=== PATIENT | male | born 1935 | race Caucasian/White ===

== ENCOUNTER 2018-10-07 16:43 | Inpatient (IN) | payer MEDICARE, OTHER, BC ==
[2018-10-07] MEDS ORDERED: Milk Of Magnesia 30 ML UDCUP PO PRN (19:21)
[2018-10-07] MEDS ORDERED: Ondansetron ODT 4 MG TAB PO PRN (19:22)
[2018-10-07] MEDS ORDERED: Polyethylene Glycol 3350 17 GM Packet PO PRN (19:23)
[2018-10-07] MEDS: Cefepime 1 GM in Sodium Chloride 0.9% 100 ML IVPB SCH (21:11)
[2018-10-07] MEDS: levETIRAcetam 500 MG TAB PO SCH (21:12)
[2018-10-07] MEDS: Pregabalin 75 MG CAP PO SCH (21:13)
[2018-10-07] MEDS: Apixaban 2.5 MG TAB PO SCH (21:14)
[2018-10-07] MEDS: Lisinopril 10 MG TAB PO SCH (21:15)
[2018-10-08] MEDS: Vancomycin HCl 1 GM in Sodium Chloride 0.9% 250 ML 250 ML IVPB SCH ×2 (01:45→13:33)
[2018-10-08 05:37] LABS: #Basophils 0.1 thou/uL (0.0-0.2); #Eosinphils 0.2 thou/uL (0.0-0.7); #Lymphocytes 0.8 thou/uL (1.20-3.40); #Monocytes 0.5 thou/uL (0.11-0.59); #Neutrophils 3.3 thou/uL (1.40-6.50); %Basophils 1.6 % (0.0-1.0); %Eosinophils 4.1 % (0.0-10.0); %Lymphocytes 16.1 % (21.0-51.0); %Monocytes 10.1 % (0.0-10.0); %Neutrophils 68.2 % (42.0-75.0); Hemoglobin 8.4 g/dL (14.0-18.0); Mean Corpuscular HGB CONC 32.8 g/dL (32.0-36.0); Mean Corpuscular Hemoglobin 29.3 pg (27.0-31.0); Mean Corpuscular Volume 89.3 fL (78.0-98.0); Platelet Count 157 thou/uL (130-400); RBC Distribution Width 13.4 % (11.5-14.5); Red Blood Cell (RBC) Count 2.88 mill/uL (4.70-6.10); White Blood Cell (WBC) Count 4.9 thou/uL (4.8-10.8)
[2018-10-08 05:51] LABS: ALT (SGPT) 19 U/L (8-55); AST (SGOT) 21 U/L (5-34); Albumin 2.7 g/dL (3.4-4.8); Alkaline Phosphatase 62 U/L (40-150); Anion Gap 12 mmol/L (10-20); BUN (Urea Nitrogen) 11 mg/dL (8.4-25.7); Bilirubin, Total 0.9 mg/dL (0.2-1.2); Calc. Creatinine Clearance 90 mL/min (70-130); Calcium 8.5 mg/dL (7.8-10.44); Carbon Dioxide 29 mmol/L (23-31); Chloride 100 mmol/L (98-107); Estimated GFR-MDRD Greater than 90; Glucose 106 mg/dL (83-110); Potassium 4.1 mmol/L (3.5-5.1); Protein, Total 4.7 g/dL (5.8-8.1); Sodium 137 mmol/L (136-145)
[2018-10-08] MEDS: Ferrous Sulfate 325 MG TAB PO SCH ×2 (08:55→17:33)
[2018-10-08] MEDS: levETIRAcetam 500 MG TAB PO SCH ×2 (09:30→20:54)
[2018-10-08] MEDS: Famotidine 20 MG TAB PO SCH (09:30)
[2018-10-08] MEDS: Cefepime 1 GM in Sodium Chloride 0.9% 100 ML IVPB SCH ×2 (09:31→20:53)
[2018-10-08] MEDS: Apixaban 2.5 MG TAB PO SCH ×2 (09:33→20:55)
[2018-10-08] MEDS: Aspirin 81 mg Enteric Coated Tablet PO SCH (09:33)
[2018-10-08] MEDS: Multivitamin W/ Minerals 1 TAB PO SCH (09:34)
[2018-10-08] MEDS: Pregabalin 75 MG CAP PO SCH ×2 (09:34→20:55)
[2018-10-08] MEDS ORDERED: Lisinopril 10 MG TAB ONE (10:16)
[2018-10-08] MEDS: Lisinopril 10 MG TAB PO SCH ×2 (10:21→20:57)
[2018-10-08] MEDS ORDERED: Sodium Chloride 0.9% 20 ML ONE ×2 (11:02→15:18)
[2018-10-08] MEDS: HYDROcodone/Acetaminophen 5/325 mg Tablet PO PRN ×2 (13:43→20:53)
[2018-10-08] MEDS ORDERED: Sodium Chloride 0.9% 10 ML ONE (20:50)
[2018-10-09] MEDS: Vancomycin HCl 1 GM in Sodium Chloride 0.9% 250 ML 250 ML IVPB SCH ×2 (01:29→12:41)
[2018-10-09] MEDS: Cefepime 1 GM in Sodium Chloride 0.9% 100 ML IVPB SCH ×2 (08:26→20:50)
[2018-10-09] MEDS: Ferrous Sulfate 325 MG TAB PO SCH ×2 (08:27→17:39)
[2018-10-09] MEDS: Pregabalin 75 MG CAP PO SCH ×2 (08:27→20:49)
[2018-10-09] MEDS: levETIRAcetam 500 MG TAB PO SCH ×2 (08:28→20:49)
[2018-10-09] MEDS: Lisinopril 10 MG TAB PO SCH ×2 (08:28→20:49)
[2018-10-09] MEDS: Multivitamin W/ Minerals 1 TAB PO SCH (08:28)
[2018-10-09] MEDS: Aspirin 81 mg Enteric Coated Tablet PO SCH (08:29)
[2018-10-09] MEDS: Apixaban 2.5 MG TAB PO SCH ×2 (08:29→20:50)
[2018-10-09] MEDS: Famotidine 20 MG TAB PO SCH (08:29)
--- NOTE | 2018-10-09 12:02 | PRG ---
DATE OF SERVICE: 10/09/2018 SUBJECTIVE: Mr. Salazar is resting comfortably in bed. Denies any concerns. No family at bedside. Discussed with nursing. OBJECTIVE: VITAL SIGNS: He is afebrile. Heart rate is 72, respirations 20, oxygen saturation 96% on room air, blood pressure 156/63. CARDIOVASCULAR: S1 and S2 plus. RESPIRATORY: Normal vesicular breath sounds. ABDOMEN: Soft and nontender. Bowel sounds heard in all quadrants. EXTREMITIES: Without cyanosis or clubbing. Hip incision is healthy. CENTRAL NERVOUS SYSTEM: Awake and responsive. Generalized weakness. IMPRESSION: 1. Septic arthritis of the right hip requiring removal of hardware and now continued antibiotics. 2. Hypertension. 3. Coronary artery disease. 4. History of atrial fibrillation. 5. Postherpetic neuralgia. 6. Deconditioning. 7. Dyslipidemia. PLAN: 1. Continue current medications including antibiotics. 2. Nutritional support with heart healthy diet. 3. Orthopedic precautions. 4. Incision care. 5. DVT and stress ulcer prophylaxis. 6. Decubitus precaution. 7. PT/OT. 8. We will review old records for duration of antibiotics. Job ID: [id number]
[2018-10-09 12:30] LABS: Vancomycin, Trough 14.2 ug/mL
--- NOTE | 2018-10-09 12:34 | HP ---
Date of Examination: 10/08/18 CHIEF COMPLAINTS: Recurrent septic arthritis, requiring complete removal of right total hip hardware with replacement of new hardware for long-term antibiotics and therapy. BRIEF HISTORY: This is a pleasant 82-year-old male, who was initially at inpatient rehab hospital for herpes zoster ophthalmicus and significant deconditioning. He did develop an episode of aspiration pneumonia and so was admitted to the acute hospital and transferred back to inpatient rehab. He was doing well and was anticipated to be discharged when he fell and sustained a right hip fracture. He had to be transferred back to the acute hospital and underwent surgical fixation. He came back to the inpatient rehab, where unfortunately he started developing some fever and chills and was noted to have some redness and pain in the right hip incision site with blood cultures growing MRSA. He underwent a washout and was treated with long-term IV antibiotics. He eventually was transferred to [facility] in [place] and where he had recurrence of the hip infection and so Orthopedics evaluated him and apparently took him to the OR and removed the hardware and placed new hardware with washout and he is back on IV antibiotics. He has been transferred here for continuation of the IV antibiotics, wound care, physical therapy. The patient is resting comfortably in bed and denies any complaints. He denies any fever or chills. He is tolerating his antibiotics. No family at bedside. PAST MEDICAL HISTORY: 1. Hypertension. 2. Atrial fibrillation. 3. Coronary artery disease. 4. Postherpetic neuralgia. 5. History of CVA with right hemiparesis, improving. 6. Status post fall and right hip fracture, requiring hemiarthroplasty with subsequent infection requiring initial washout then and now replacement of hardware. PAST SURGICAL HISTORY: 1. Coronary artery bypass grafting. 2. Radiofrequency ablation for atrial fibrillation. ALLERGIES: TO IODINE AND SHELLFISH. FAMILY HISTORY: Noncontributory to current admission. PSYCHOSOCIAL HISTORY: No documented tobacco or recreational drug abuse. Social alcohol intake. REVIEW OF SYSTEMS: CARDIOVASCULAR SYSTEM: Denies any chest pain, shortness of breath, palpitations, PND, orthopnea, or pedal edema. RESPIRATORY SYSTEM: Denies any chronic cough, expectoration, or pleuritic-type chest pain. GASTROINTESTINAL SYSTEM: Denies any nausea, vomiting, diarrhea, constipation, hematemesis, melena, or hematochezia. GENITOURINARY SYSTEM: Denies any frequency, urgency, dysuria, or hematuria. CENTRAL NERVOUS SYSTEM: Generalized weakness. Postherpetic neuralgia pain is controlled. SHEENT: Denies any difficulty with speech, vision, hearing, or swallowing. SKIN: Denies any rash. PHYSICAL EXAMINATION: GENERAL: Pleasant 82-year-old male, who is resting comfortably in bed and denies any concerns. No family at bedside. VITAL SIGNS: He is afebrile. Heart rate is 56, respirations 16, oxygen saturation 97% on room air, and blood pressure 140/63. HEENT: Normocephalic and atraumatic. Pupils are equally reactive to light and accommodation. No JVD, thyromegaly, cervical lymphadenopathy, or throat exudates. No carotid bruits. CARDIOVASCULAR SYSTEM: S1 and S2 plus. Rate and rhythm are regular. RESPIRATORY SYSTEM: Normal vesicular breath sounds heard in all lung morejon. ABDOMEN: Soft and nontender. Bowel sounds heard in all quadrants. EXTREMITIES: Without cyanosis, clubbing. Trace edema, right leg. Right hip incision with dressing. CENTRAL NERVOUS SYSTEM: Awake and responsive. Cranial nerves 2 through 12 intact. Residual weakness from his CVA. LABORATORY DATA: White count is 4.9, H and H is 8.4 and 25.7. Sodium 137, potassium 4.1, and BUN and creatinine are 11 and 0.6. AST and ALT are normal. IMPRESSION: 1. Methicillin-resistant Staphylococcus aureus infection of his right hip, requiring removal of hardware and replacement and new hardware, now on continued IV antibiotics. 2. Coronary artery disease. 3. History of atrial fibrillation. 4. Postherpetic neuralgia. 5. Dyslipidemia. 6. Possible seizure disorder. 7. History of aspiration pneumonia. 8. Hypertension. 9. Deconditioning. PLAN: 1. Continue current medications. 2. Nutritional support. 3. Physical therapy. 4. Incision care. 5. Orthopedic precautions. 6. Routine laboratory values. 7. DVT and stress ulcer prophylaxis. 8. Decubitus precautions. 9. PT/OT eval and treat. 10. Discussed with the patient in detail. All questions answered. No family at bedside. Job ID: [id number] [facility]
[2018-10-09] MEDS: HYDROcodone/Acetaminophen 5/325 mg Tablet PO PRN ×2 (12:52→20:47)
[2018-10-10] MEDS: Vancomycin HCl 1 GM in Sodium Chloride 0.9% 250 ML 250 ML IVPB SCH ×2 (01:37→13:30)
[2018-10-10] MEDS: Famotidine 20 MG TAB PO SCH (08:45)
[2018-10-10] MEDS: Cefepime 1 GM in Sodium Chloride 0.9% 100 ML IVPB SCH (08:45)
[2018-10-10] MEDS: Multivitamin W/ Minerals 1 TAB PO SCH (08:46)
[2018-10-10] MEDS: Lisinopril 10 MG TAB PO SCH (08:46)
[2018-10-10] MEDS: Pregabalin 75 MG CAP PO SCH (08:46)
[2018-10-10] MEDS: Ferrous Sulfate 325 MG TAB PO SCH ×2 (08:47→17:33)
[2018-10-10] MEDS: Aspirin 81 mg Enteric Coated Tablet PO SCH (08:47)
[2018-10-10] MEDS: levETIRAcetam 500 MG TAB PO SCH (08:47)
[2018-10-10] MEDS: Apixaban 2.5 MG TAB PO SCH (08:47)
[2018-10-10] MEDS ORDERED: Ondansetron ODT 4 MG TAB PO PRN (10:52)
--- NOTE | 2018-10-10 13:24 | PRG ---
DATE OF SERVICE: 10/10/2018 SUBJECTIVE: Mr. Salazar is awake and responsive. He denies any concerns. He remains slightly confused. He apparently did well with therapy this morning. He is tolerating his antibiotics. Spoke with pharmacy and asked them to manage his vancomycin dosing. OBJECTIVE: VITAL SIGNS: He is afebrile, heart rate 73, respirations 18, oxygen saturation 96% on room air, and blood pressure 161/75. CARDIOVASCULAR SYSTEM: S1 and S2 plus. RESPIRATORY SYSTEM: Clear breath sounds. ABDOMEN: Soft and nontender. Bowel sounds heard in all quadrants. EXTREMITIES: Without cyanosis or clubbing. Peripheral pulses are palpable. Hip incision with dressing. IMPRESSION: 1. Septic arthritis, right hip, requiring removal of hardware and replacement. 2. Hypertension. 3. Atrial fibrillation. 4. Coronary artery disease. 5. Postherpetic neuralgia. 6. History of cerebrovascular accident with improving right hemiparesis. 7. Deconditioning. PLAN: 1. Continue nutritional support. 2. Heart healthy diet. 3. Continue antibiotics. 4. Weekly CBC, CRP, CMP, and sed rate. 5. Orthopedic precautions. 6. Pharmacy to manage vancomycin dosing. Spoke with pharmacy. 7. Continue PT/OT. 8. Discussed with the patient and nursing in detail. All questions answered. Job ID: [id number]
[2018-10-10] MEDS: Vancomycin HCl 500 MG in Sodium Chloride 0.9% 100 ML IVPB SCH (13:37)
[2018-10-10] MEDS: Vancomycin HCl 750 MG in Sodium Chloride 0.9% 250 ML 250 ML IVPB SCH (13:37)
[2018-10-10 14:29] LABS: Anion Gap 12 mmol/L (10-20); BUN (Urea Nitrogen) 15 mg/dL (8.4-25.7); Calc. Creatinine Clearance 85 mL/min (70-130); Calcium 8.3 mg/dL (7.8-10.44); Carbon Dioxide 29 mmol/L (23-31); Chloride 98 mmol/L (98-107); Estimated GFR-MDRD Greater than 90; Glucose 136 mg/dL (83-110); Potassium 3.4 mmol/L (3.5-5.1); Sodium 136 mmol/L (136-145)
[2018-10-10] MEDS: HYDROcodone/Acetaminophen 5/325 mg Tablet PO PRN (14:42)
[2018-10-10 14:54] LABS: #Basophils 0.1 thou/uL (0.0-0.2); #Eosinphils 0.2 thou/uL (0.0-0.7); #Lymphocytes 0.7 thou/uL (1.20-3.40); #Monocytes 0.5 thou/uL (0.11-0.59); #Neutrophils 4.2 thou/uL (1.40-6.50); %Basophils 1.2 % (0.0-1.0); %Eosinophils 4.4 % (0.0-10.0); %Lymphocytes 11.6 % (21.0-51.0); %Monocytes 8.6 % (0.0-10.0); %Neutrophils 74.1 % (42.0-75.0); Hemoglobin 9.2 g/dL (14.0-18.0); Mean Corpuscular HGB CONC 31.8 g/dL (32.0-36.0); Mean Corpuscular Hemoglobin 28.6 pg (27.0-31.0); Mean Corpuscular Volume 89.9 fL (78.0-98.0); Mean Platelet Volume 6.2 fL (7.4-10.4); Platelet Count 219 thou/uL (130-400); RBC Distribution Width 13.6 % (11.5-14.5); Red Blood Cell (RBC) Count 3.21 mill/uL (4.70-6.10); White Blood Cell (WBC) Count 5.6 thou/uL (4.8-10.8)
[2018-10-11] MEDS ORDERED: Pregabalin 75 MG CAP ONE (08:26)
[2018-10-11] MEDS ORDERED: Ferrous Sulfate 325 MG TAB ONE (08:26)
[2018-10-11] MEDS ORDERED: Apixaban 5 MG TAB ONE (08:26)
[2018-10-11] MEDS ORDERED: Famotidine 20 MG TAB ONE (08:26)
[2018-10-11] MEDS ORDERED: Cefepime 1 GM VIAL ONE ×2 (08:27→08:28)
[2018-10-11] MEDS ORDERED: Lisinopril 5 MG TAB ONE (08:27)
[2018-10-11] MEDS ORDERED: levETIRAcetam 500 MG TAB ONE (08:27)
[2018-10-11] MEDS ORDERED: Aspirin 81 mg Enteric Coated Tablet ONE (08:27)
[2018-10-11] MEDS ORDERED: Multivitamin W/ Minerals 1 TAB ONE (08:27)
[2018-10-11] MEDS: Cefepime 1 GM in Sodium Chloride 0.9% 100 ML IVPB SCH ×3 (08:41→21:06)
[2018-10-11] MEDS: levETIRAcetam 500 MG TAB PO SCH ×3 (08:41→21:06)
[2018-10-11] MEDS: Apixaban 2.5 MG TAB PO SCH ×3 (08:41→21:07)
[2018-10-11] MEDS: Pregabalin 75 MG CAP PO SCH ×3 (08:42→21:07)
[2018-10-11] MEDS: Vancomycin HCl 750 MG in Sodium Chloride 0.9% 250 ML 250 ML IVPB SCH ×2 (08:42→13:48)
[2018-10-11] MEDS: Lisinopril 10 MG TAB PO SCH ×3 (08:42→21:08)
[2018-10-11] MEDS: Vancomycin HCl 500 MG in Sodium Chloride 0.9% 100 ML IVPB SCH ×2 (08:43→13:57)
[2018-10-11] MEDS: Aspirin 81 mg Enteric Coated Tablet PO SCH (09:00)
[2018-10-11] MEDS: HYDROcodone/Acetaminophen 5/325 mg Tablet PO PRN (09:00)
[2018-10-11] MEDS: Sodium Chloride 0.9% 40 ML ONE ×2 (09:00→21:05)
[2018-10-11] MEDS: Ferrous Sulfate 325 MG TAB PO SCH ×3 (09:00→17:10)
[2018-10-11] MEDS: Famotidine 20 MG TAB PO SCH (09:27)
[2018-10-11] MEDS: Multivitamin W/ Minerals 1 TAB PO SCH (09:34)
[2018-10-11 13:05] LABS: Vancomycin, Trough 12.2 ug/mL
[2018-10-11] MEDS: Vancomycin HCl 1 GM in Sodium Chloride 0.9% 250 ML 250 ML IVPB SCH (13:56)
[2018-10-12] MEDS: Vancomycin HCl 500 MG in Sodium Chloride 0.9% 100 ML IVPB SCH ×2 (02:23→14:17)
[2018-10-12] MEDS: Vancomycin HCl 1 GM in Sodium Chloride 0.9% 250 ML 250 ML IVPB SCH ×2 (02:23→14:18)
[2018-10-12] MEDS: Apixaban 2.5 MG TAB PO SCH ×2 (09:14→20:33)
[2018-10-12] MEDS: Aspirin 81 mg Enteric Coated Tablet PO SCH (09:14)
[2018-10-12] MEDS: Ferrous Sulfate 325 MG TAB PO SCH ×2 (09:14→18:23)
[2018-10-12] MEDS: Cefepime 1 GM in Sodium Chloride 0.9% 100 ML IVPB SCH ×2 (09:14→20:30)
[2018-10-12] MEDS: Famotidine 20 MG TAB PO SCH (09:15)
[2018-10-12] MEDS: Lisinopril 10 MG TAB PO SCH ×2 (09:16→20:31)
[2018-10-12] MEDS: levETIRAcetam 500 MG TAB PO SCH ×2 (09:16→20:31)
[2018-10-12] MEDS: Pregabalin 75 MG CAP PO SCH ×2 (09:17→20:33)
[2018-10-12] MEDS: Multivitamin W/ Minerals 1 TAB PO SCH (09:18)
[2018-10-12] MEDS ORDERED: Sodium Chloride 0.9% 20 ML ONE ×2 (09:26→20:17)
--- NOTE | 2018-10-12 12:48 | PRG ---
DATE OF SERVICE: 10/12/2018 SUBJECTIVE: Mr. Salazar is doing the same. He is up in his chair, has not started on his lunch yet. Denies any concerns or questions. No family at bedside, discussed with nursing. OBJECTIVE: VITAL SIGNS: He is afebrile. Heart rate 72, respirations 20, oxygen saturation 98% on room air, and blood pressure 160/70. CARDIOVASCULAR SYSTEM: S1 and S2 plus. RESPIRATORY SYSTEM: Normal vesicular breath sounds. ABDOMEN: Soft and nontender. Bowel sounds heard in all quadrants. EXTREMITIES: Without cyanosis or clubbing. CENTRAL NERVOUS SYSTEM: Awake and responsive. Cranial nerves 2 through 12 intact. Generalized weakness. Does have some deficits from his prior intracranial injury. IMPRESSION: 1. Right hip septic arthritis status post removal of hardware and possible replacement, not sure if both hardware was replaced or he just has antibiotic spacers plus hardware. I do not have the operative report. 2. Hypertension. 3. Atrial fibrillation. 4. Coronary artery disease. 5. Postherpetic neuralgia. 6. History of cerebrovascular accident with right hemiparesis with improvement. PLAN: 1. Continue current medications including antibiotics. 2. Orthopedic precautions. 3. Incision care. 4. Weekly CBC, CRP, and sedimentation rate. 5. Nutritional support. 6. PT/OT. 7. Discussed with the patient in detail. All questions answered. 8. Dr. Norris on-call this weekend and Dr. Norris or Dr. May, covering me next week. Job ID: [id number]
[2018-10-12] MEDS: HYDROcodone/Acetaminophen 5/325 mg Tablet PO PRN (20:31)
[2018-10-13 01:22] LABS: Vancomycin, Trough 21.9 ug/mL
[2018-10-13] MEDS: Vancomycin HCl 500 MG in Sodium Chloride 0.9% 100 ML IVPB SCH ×2 (02:10→13:55)
[2018-10-13] MEDS: Vancomycin HCl 1 GM in Sodium Chloride 0.9% 250 ML 250 ML IVPB SCH ×2 (02:11→13:54)
[2018-10-13 05:07] LABS: #Basophils 0.1 thou/uL (0.0-0.2); #Eosinphils 0.2 thou/uL (0.0-0.7); #Lymphocytes 0.7 thou/uL (1.20-3.40); #Monocytes 0.6 thou/uL (0.11-0.59); #Neutrophils 3.5 thou/uL (1.40-6.50); %Basophils 1.3 % (0.0-1.0); %Eosinophils 4.6 % (0.0-10.0); %Lymphocytes 14.4 % (21.0-51.0); %Monocytes 10.9 % (0.0-10.0); %Neutrophils 68.9 % (42.0-75.0); Hemoglobin 8.7 g/dL (14.0-18.0); Mean Corpuscular HGB CONC 32.3 g/dL (32.0-36.0); Mean Corpuscular Hemoglobin 28.7 pg (27.0-31.0); Mean Corpuscular Volume 89.1 fL (78.0-98.0); Mean Platelet Volume 5.9 fL (7.4-10.4); Platelet Count 241 thou/uL (130-400); RBC Distribution Width 13.4 % (11.5-14.5); Red Blood Cell (RBC) Count 3.02 mill/uL (4.70-6.10); White Blood Cell (WBC) Count 5.1 thou/uL (4.8-10.8)
[2018-10-13 05:11] LABS: MDiff Complete? YES; Manual Diff?? NO
[2018-10-13 05:27] LABS: ALT (SGPT) 18 U/L (8-55); AST (SGOT) 15 U/L (5-34); Albumin 2.7 g/dL (3.4-4.8); Alkaline Phosphatase 63 U/L (40-150); Anion Gap 11 mmol/L (10-20); BUN (Urea Nitrogen) 18 mg/dL (8.4-25.7); Bilirubin, Total 0.5 mg/dL (0.2-1.2); Calc. Creatinine Clearance 80 mL/min (70-130); Calcium 8.3 mg/dL (7.8-10.44); Carbon Dioxide 29 mmol/L (23-31); Chloride 101 mmol/L (98-107); Estimated GFR-MDRD Greater than 90; Globulin 2.2 g/dL (2.4-3.5); Glucose 108 mg/dL (83-110); Potassium 3.7 mmol/L (3.5-5.1); Protein, Total 4.9 g/dL (5.8-8.1); Sodium 137 mmol/L (136-145)
[2018-10-13] MEDS: Ferrous Sulfate 325 MG TAB PO SCH ×2 (09:16→17:13)
[2018-10-13] MEDS: Pregabalin 75 MG CAP PO SCH ×2 (09:16→21:02)
[2018-10-13] MEDS: Famotidine 20 MG TAB PO SCH (09:17)
[2018-10-13] MEDS: Lisinopril 10 MG TAB PO SCH ×2 (09:17→21:02)
[2018-10-13] MEDS: Multivitamin W/ Minerals 1 TAB PO SCH (09:17)
[2018-10-13] MEDS: Aspirin 81 mg Enteric Coated Tablet PO SCH (09:17)
[2018-10-13] MEDS: levETIRAcetam 500 MG TAB PO SCH ×2 (09:17→21:02)
[2018-10-13] MEDS: Apixaban 2.5 MG TAB PO SCH ×2 (09:17→21:03)
[2018-10-13] MEDS: Cefepime 1 GM in Sodium Chloride 0.9% 100 ML IVPB SCH ×2 (09:18→21:01)
[2018-10-13] MEDS ORDERED: Sodium Chloride 0.9% 20 ML ONE (20:49)
[2018-10-13] MEDS: HYDROcodone/Acetaminophen 5/325 mg Tablet PO PRN (21:03)
--- NOTE | 2018-10-13 22:01 | PRG ---
DATE OF SERVICE: 10/13/[address] Micha Reed. SUBJECTIVE: The patient is lying in the bed, feels well with minimal pain in his right hip. He has a diagnosis of right hip septic arthritis, status post removal of the right hip and femur hardware on long-term antibiotics, who has been admitted to skilled rehab for strengthening and deconditioning. He has had history of hypertension, atrial fibrillation, coronary artery disease, and a distant CVA with mild right hemiparesis. He feels well, however, today with no complaints and feels he is getting better and is hopeful to be able to transfer without pain in the future. OBJECTIVE: VITAL SIGNS: Shows his blood pressure is 168/67, temperature is 98, pulse 71, respirations 20, and O2 sats 97% on room air. LUNGS: Clear. CARDIAC: Showed regular rhythm. ABDOMEN: Soft and nontender. SKIN/EXTREMITIES: Healing incision over the right leg. NEUROLOGICAL: Shows some mild right-sided weakness. ASSESSMENT: 1. Resolving right hip septic arthritis on cefepime 1 g IV q.12 hours. 2. Stable hypertension. 3. Stable atrial fibrillation with rate control and anticoagulation. 4. Stable seizure disorder, controlled on Keppra. PLAN: Continue PT/OT. Continue IV cefepime. Continue wound care. Continue rate control and anticoagulation of atrial fibrillation. Job ID: [id number]
[2018-10-14 01:08] LABS: Vancomycin, Trough 22.2 ug/mL
[2018-10-14] MEDS: Vancomycin HCl 500 MG in Sodium Chloride 0.9% 100 ML IVPB SCH ×2 (02:04→14:12)
[2018-10-14] MEDS: Vancomycin HCl 1 GM in Sodium Chloride 0.9% 250 ML 250 ML IVPB SCH ×2 (02:05→14:08)
[2018-10-14] MEDS ORDERED: Sodium Chloride 0.9% 10 ML ONE ×3 (08:23→09:57)
[2018-10-14] MEDS: Ferrous Sulfate 325 MG TAB PO SCH ×2 (08:59→17:34)
[2018-10-14] MEDS: Cefepime 1 GM in Sodium Chloride 0.9% 100 ML IVPB SCH ×2 (09:07→20:56)
[2018-10-14] MEDS: Famotidine 20 MG TAB PO SCH (09:12)
[2018-10-14] MEDS: Lisinopril 10 MG TAB PO SCH ×2 (09:14→20:59)
[2018-10-14] MEDS: Apixaban 2.5 MG TAB PO SCH ×2 (09:14→20:59)
[2018-10-14] MEDS: Aspirin 81 mg Enteric Coated Tablet PO SCH (09:14)
[2018-10-14] MEDS: Pregabalin 75 MG CAP PO SCH ×2 (09:16→20:57)
[2018-10-14] MEDS: levETIRAcetam 500 MG TAB PO SCH ×2 (09:17→20:57)
[2018-10-14] MEDS: Multivitamin W/ Minerals 1 TAB PO SCH (09:17)
[2018-10-14] MEDS ORDERED: Sodium Chloride 0.9% 20 ML ONE (14:04)
[2018-10-15] MEDS: Vancomycin HCl 1 GM in Sodium Chloride 0.9% 250 ML 250 ML IVPB SCH ×2 (02:05→14:55)
[2018-10-15] MEDS: Vancomycin HCl 500 MG in Sodium Chloride 0.9% 100 ML IVPB SCH ×2 (02:05→15:05)
[2018-10-15] MEDS: Ferrous Sulfate 325 MG TAB PO SCH ×2 (08:50→17:28)
[2018-10-15] MEDS: Pregabalin 75 MG CAP PO SCH ×2 (08:51→20:38)
[2018-10-15] MEDS: Apixaban 2.5 MG TAB PO SCH ×2 (08:51→20:39)
[2018-10-15] MEDS: Aspirin 81 mg Enteric Coated Tablet PO SCH (08:53)
[2018-10-15] MEDS: levETIRAcetam 500 MG TAB PO SCH ×2 (08:53→20:39)
[2018-10-15] MEDS: Multivitamin W/ Minerals 1 TAB PO SCH (08:56)
[2018-10-15] MEDS: Lisinopril 10 MG TAB PO SCH ×2 (08:57→20:39)
[2018-10-15] MEDS: Famotidine 20 MG TAB PO SCH (08:57)
[2018-10-15] MEDS: Cefepime 1 GM in Sodium Chloride 0.9% 100 ML IVPB SCH ×2 (09:00→20:38)
--- NOTE | 2018-10-15 09:39 | PRG ---
DATE OF SERVICE: 10/14/2018 SUBJECTIVE: The patient is awake, but appears to be somewhat confused and weak, although answers questions appropriately and maybe just fatigued, this is late at night. He is denying any pain, shortness of breath, or chest pain. Nurses have no complaints. OBJECTIVE: VITAL SIGNS: Show him to have a blood pressure of 137/62, temperature is 99.6, pulse 86, respirations 18, and O2 sats 94% on room air. LUNGS: Clear. CARDIAC: Examination showed regular rhythm. ABDOMEN: Soft and nontender. EXTREMITIES: Right leg shows healing incision over the right leg. ASSESSMENT: 1. Resolving right hip septic arthritis, on cefepime 1 g q.12. 2. Stable hypertension. 3. Stable atrial fibrillation, rate control with anticoagulation. 4. Stable seizure disorder. PLAN: Continue PT/OT. Continue wound care. Continue rate control and anticoagulation for atrial fibrillation. Continue IV cefepime. Job ID: [id number]
[2018-10-15] MEDS: HYDROcodone/Acetaminophen 5/325 mg Tablet PO PRN (11:45)
[2018-10-15] MEDS ORDERED: Sodium Chloride 0.9% 20 ML ONE (20:50)
[2018-10-16] MEDS: Vancomycin HCl 500 MG in Sodium Chloride 0.9% 100 ML IVPB SCH (02:20)
[2018-10-16] MEDS: Vancomycin HCl 1 GM in Sodium Chloride 0.9% 250 ML 250 ML IVPB SCH ×2 (02:21→19:35)
[2018-10-16] MEDS: Ferrous Sulfate 325 MG TAB PO SCH ×2 (08:59→17:26)
[2018-10-16] MEDS: Famotidine 20 MG TAB PO SCH (09:01)
[2018-10-16] MEDS: Apixaban 2.5 MG TAB PO SCH ×2 (09:01→21:04)
[2018-10-16] MEDS: Multivitamin W/ Minerals 1 TAB PO SCH (09:02)
[2018-10-16] MEDS: Aspirin 81 mg Enteric Coated Tablet PO SCH (09:03)
[2018-10-16] MEDS: levETIRAcetam 500 MG TAB PO SCH ×2 (09:03→21:04)
[2018-10-16] MEDS: Lisinopril 10 MG TAB PO SCH ×2 (09:03→21:04)
[2018-10-16] MEDS: Cefepime 1 GM in Sodium Chloride 0.9% 100 ML IVPB SCH ×2 (09:05→21:03)
[2018-10-16] MEDS: HYDROcodone/Acetaminophen 5/325 mg Tablet PO PRN ×2 (09:14→17:26)
[2018-10-16] MEDS: Pregabalin 75 MG CAP PO SCH ×2 (09:54→21:04)
[2018-10-16 13:44] LABS: Vancomycin, Trough 24.8 ug/mL
[2018-10-16] MEDS ORDERED: Vancomycin HCl 500 MG in Sodium Chloride 0.9% 100 ML IVPB SCH (15:00)
--- NOTE | 2018-10-16 18:32 | PRG ---
DATE OF SERVICE: 10/15/2018 SUBJECTIVE: The patient is sitting up in a chair, eating breakfast, much more alert and cheerful. He states he feels much better today. No complaints. OBJECTIVE: VITAL SIGNS: Show his blood pressure is 166/76, temperature 97, pulse 74, respirations 18, O2 sats 96% on room air. LUNGS: Clear. CARDIAC: Showed regular rhythm. ABDOMEN: Soft and nontender. SKIN/EXTREMITIES: Show healing incision over the right leg. LABORATORY DATA: Shows sedimentation rate is down to 44, CRP down to 3.3 from 13.3. Sodium 137, potassium 3.7, chloride 101, bicarb 29, BUN 18, creatinine 0.67. White count 5100, hematocrit 26, and hemoglobin 8.7. ASSESSMENT: 1. Resolving septic arthritis of the right hip, but with elevated trough level of 22. 2. Improving deconditioning. 3. Stable atrial fibrillation with rate controlled and anticoagulation. 4. Stable seizure disorder. PLAN: 1. Continue rate control and anticoagulation. 2. Continue IV cefepime. 3. Decrease IV vancomycin to 1 g q.12. 4. Continue wound care. 5. Continue PT/OT. Job ID: [id number]
[2018-10-17 01:21] LABS: Vancomycin, Trough 15.5 ug/mL
[2018-10-17] MEDS ORDERED: Sodium Chloride 0.9% 10 ML ONE (02:21)
[2018-10-17] MEDS: Vancomycin HCl 1 GM in Sodium Chloride 0.9% 250 ML 250 ML IVPB SCH ×2 (02:26→13:13)
[2018-10-17 05:41] LABS: #Basophils 0.1 thou/uL (0.0-0.2); #Eosinphils 0.4 thou/uL (0.0-0.7); #Lymphocytes 0.8 thou/uL (1.20-3.40); #Monocytes 0.5 thou/uL (0.11-0.59); #Neutrophils 2.9 thou/uL (1.40-6.50); %Basophils 1.4 % (0.0-1.0); %Eosinophils 8.8 % (0.0-10.0); %Monocytes 9.9 % (0.0-10.0); Hemoglobin 9.2 g/dL (14.0-18.0); Mean Corpuscular HGB CONC 31.3 g/dL (32.0-36.0); Mean Corpuscular Hemoglobin 27.9 pg (27.0-31.0); Mean Corpuscular Volume 89.1 fL (78.0-98.0); Mean Platelet Volume 5.5 fL (7.4-10.4); Platelet Count 284 thou/uL (130-400); RBC Distribution Width 13.5 % (11.5-14.5); Red Blood Cell (RBC) Count 3.29 mill/uL (4.70-6.10); White Blood Cell (WBC) Count 4.6 thou/uL (4.8-10.8)
[2018-10-17 06:05] LABS: ALT (SGPT) 19 U/L (8-55); AST (SGOT) 15 U/L (5-34); Albumin 2.9 g/dL (3.4-4.8); Alkaline Phosphatase 84 U/L (40-150); Anion Gap 11 mmol/L (10-20); BUN (Urea Nitrogen) 19 mg/dL (8.4-25.7); Bilirubin, Total 0.4 mg/dL (0.2-1.2); Calc. Creatinine Clearance 88 mL/min (70-130); Calcium 8.6 mg/dL (7.8-10.44); Carbon Dioxide 28 mmol/L (23-31); Chloride 100 mmol/L (98-107); Estimated GFR-MDRD Greater than 90; Globulin 2.3 g/dL (2.4-3.5); Glucose 106 mg/dL (83-110); Potassium 3.9 mmol/L (3.5-5.1); Protein, Total 5.2 g/dL (5.8-8.1); Sodium 135 mmol/L (136-145)
--- NOTE | 2018-10-17 07:31 | PRG ---
DATE OF SERVICE: 10/16/2018 SUBJECTIVE: The patient is lying in bed, appears to be in distress but awakens and is alert and denies any complaints. States he just feels better in the morning. OBJECTIVE: VITAL SIGNS: Show blood pressure is 149/64, temperature is 97.6, pulse 78, respirations 18, and O2 sats 98% on room air. LUNGS: Clear. CARDIAC: Showed regular rhythm. ABDOMEN: Soft and nontender. EXTREMITIES: Right hip shows minimal tenderness to palpation. LABORATORY DATA: Vancomycin trough level elevated at 22. ASSESSMENT: 1. Resolving septic arthritis as well as elevated trough level at 22. We have decreased dose to a gram q.12. Repeat trough level in two days. 2. Improving deconditioning. 3. Stable atrial fibrillation, rate controlled on anticoagulation. 4. Stable seizure disorder with no recurrence. The patient is still on 40% weightbearing status, total hip precautions, is able to sit up in the chair only and do therapy. Job ID: [id number]
[2018-10-17] MEDS: Famotidine 20 MG TAB PO SCH (08:26)
[2018-10-17] MEDS: levETIRAcetam 500 MG TAB PO SCH ×2 (08:27→21:17)
[2018-10-17] MEDS: Ferrous Sulfate 325 MG TAB PO SCH ×2 (08:27→17:24)
[2018-10-17] MEDS: Pregabalin 75 MG CAP PO SCH ×2 (08:29→21:15)
[2018-10-17] MEDS: Apixaban 2.5 MG TAB PO SCH ×2 (08:30→21:28)
[2018-10-17] MEDS: Cefepime 1 GM in Sodium Chloride 0.9% 100 ML IVPB SCH ×2 (08:30→21:14)
[2018-10-17] MEDS: Multivitamin W/ Minerals 1 TAB PO SCH (08:30)
[2018-10-17] MEDS: Lisinopril 10 MG TAB PO SCH ×2 (08:30→21:28)
[2018-10-17] MEDS: Aspirin 81 mg Enteric Coated Tablet PO SCH (08:30)
[2018-10-17] MEDS: HYDROcodone/Acetaminophen 5/325 mg Tablet PO PRN ×2 (13:10→21:26)
[2018-10-18] MEDS: Vancomycin HCl 1 GM in Sodium Chloride 0.9% 250 ML 250 ML IVPB SCH ×2 (02:25→14:32)
--- NOTE | 2018-10-18 08:15 | PRG ---
DATE OF SERVICE: 10/17/2018 SUBJECTIVE: The patient is sitting up in the bed, appears to be fatigued, but is awake, responsive, and has no complaints of pain in his legs, shortness of breath, nausea, vomiting, fever, or chills. OBJECTIVE: VITAL SIGNS: Blood pressure is 176/75, was 135/73 earlier in the day; temperature is 97.3; pulse 76; respirations 20; O2 sats is 99% on room air. LUNGS: Clear. CARDIAC: Regular rhythm. ABDOMEN: Soft, nontender. SKIN/EXTREMITIES: Show minimal tenderness to palpation of the right hip. ASSESSMENT: 1. Resolving septic arthritis, on vancomycin with decreased dose to 1 g q.12h because of elevated 12th level, and 12th level to be repeated in the morning. 2. Improving deconditioning. 3. Stable atrial fibrillation, rate controlled and anticoagulated. 4. Stable seizure disorder with no recurrence. PLAN: 1. Continue PT/OT. 2. Continue vancomycin 1 g q.12h and check trough level in the a.m. 3. Continue rate control and anticoagulation of atrial fibrillation. Job ID: [id number]
[2018-10-18] MEDS: levETIRAcetam 500 MG TAB PO SCH ×2 (08:39→22:25)
[2018-10-18] MEDS: Ferrous Sulfate 325 MG TAB PO SCH ×2 (08:39→17:05)
[2018-10-18] MEDS: Famotidine 20 MG TAB PO SCH (08:39)
[2018-10-18] MEDS: Apixaban 2.5 MG TAB PO SCH ×2 (08:41→22:30)
[2018-10-18] MEDS: Lisinopril 10 MG TAB PO SCH ×2 (08:41→22:30)
[2018-10-18] MEDS: Aspirin 81 mg Enteric Coated Tablet PO SCH (08:41)
[2018-10-18] MEDS: Multivitamin W/ Minerals 1 TAB PO SCH (08:42)
[2018-10-18] MEDS: Pregabalin 75 MG CAP PO SCH ×2 (08:42→22:27)
[2018-10-18] MEDS: HYDROcodone/Acetaminophen 5/325 mg Tablet PO PRN ×2 (12:07→22:28)
[2018-10-18 13:59] LABS: Vancomycin, Trough 15.3 ug/mL
[2018-10-18] MEDS ORDERED: Cefepime 1 GM in Sodium Chloride 0.9% 100 ML IVPB SCH (21:00)
[2018-10-18] MEDS: Doxycycline 100 MG CAP PO SCH (22:30)
[2018-10-18] MEDS: Rifampin 300 MG CAP PO SCH (22:30)
[2018-10-19] MEDS: HYDROcodone/Acetaminophen 5/325 mg Tablet PO PRN ×3 (08:17→20:33)
[2018-10-19] MEDS: Ferrous Sulfate 325 MG TAB PO SCH ×2 (08:17→17:02)
[2018-10-19] MEDS: Multivitamin W/ Minerals 1 TAB PO SCH (08:18)
[2018-10-19] MEDS: Doxycycline 100 MG CAP PO SCH ×2 (08:18→20:36)
[2018-10-19] MEDS: Aspirin 81 mg Enteric Coated Tablet PO SCH (08:18)
[2018-10-19] MEDS: Famotidine 20 MG TAB PO SCH (08:18)
[2018-10-19] MEDS: Lisinopril 10 MG TAB PO SCH ×2 (08:18→20:37)
[2018-10-19] MEDS: levETIRAcetam 500 MG TAB PO SCH ×2 (08:19→20:36)
[2018-10-19] MEDS: Pregabalin 75 MG CAP PO SCH ×2 (08:19→20:38)
[2018-10-19] MEDS: Apixaban 2.5 MG TAB PO SCH (08:19)
[2018-10-19] MEDS: Rifampin 300 MG CAP PO SCH ×2 (10:51→21:16)
[2018-10-19] MEDS: Apixaban 5 MG TAB PO SCH (20:36)
--- NOTE | 2018-10-20 07:47 | PRG ---
DATE OF SERVICE: 10/19/2018 SUBJECTIVE: Mr. Salazar is a pleasant 82-year-old white male, who had herpes zoster ophthalmicus and significant deconditioning. He was initially admitted to the inpatient rehab and had aspiration pneumonia. He was admitted to the acute hospital and transferred back to inpatient rehab. He did fairly well and had to be discharged back to the hospital, when he fell and sustained a right hip fracture. Eventually, it was stabilized after surgical correction. He went back to the rehab, where he developed fever and chills and ended up having a bacteremia growing MRSA. He had pain to his right hip and had to have a washout done of that hip. He had recurrent infections, so they took him to the OR, removed the hardware, and placed new hardware with a washout. He now continues on IV antibiotics. This morning, the patient states he is doing fine and does not have any problems at all. He states he is resting comfortably and slept well last night. OBJECTIVE: VITAL SIGNS: Today reveal blood pressure 174/73, pulse 70, respirations 20, O2 saturation 97% on room air, and T-max 98.2. GENERAL: This is a well-developed, well-nourished, thin white male, in no apparent distress at this time. HEENT: Reveals normocephalic and nontraumatic cranium. Pupils are equally round and reactive. Extraocular movements are intact. Nose and throat are clear, slightly dry. NECK: Supple without masses, nodes, or bruits. HEART: Reveals a regular rate and rhythm without murmurs, gallops, or rubs. ABDOMEN: Soft, nontender with bowel sounds heard in all 4 quadrants. No rebound or guarding is noted. : Deferred. EXTREMITIES: Reveal no clubbing, cyanosis, or edema. Right hip continues with dressing. ASSESSMENT: 1. Methicillin-resistant Staphylococcus aureus of the right hip, which required them to remove the hardware and replace it with a new hardware. 2. Continue IV antibiotics. 3. History of atrial fibrillation. 4. Postherpetic neuralgia. 5. Coronary artery disease. 6. Hyperlipidemia. 7. Possible seizure disorder. 8. History of aspiration pneumonia. 9. Hypertension. 10. Generalized weakness with deconditioning. PLAN: 1. Continue current medications and antibiotics. 2. Continue encouragement of good nutritional support. 3. Physical therapy and occupational therapy. 4. Continue incision care. 5. DVT and stress ulcer prophylaxis. 6. Decubitus precautions. 7. I did answer all the patient's questions. 8. No family at bedside. Job ID: [id number]
[2018-10-20] MEDS: Famotidine 20 MG TAB PO SCH (08:31)
[2018-10-20] MEDS: Ferrous Sulfate 325 MG TAB PO SCH ×2 (08:31→17:15)
[2018-10-20] MEDS: levETIRAcetam 500 MG TAB PO SCH ×2 (08:32→21:28)
[2018-10-20] MEDS: Pregabalin 75 MG CAP PO SCH ×2 (08:32→21:28)
[2018-10-20] MEDS: HYDROcodone/Acetaminophen 5/325 mg Tablet PO PRN ×2 (08:32→21:30)
[2018-10-20] MEDS: Doxycycline 100 MG CAP PO SCH ×2 (08:33→21:31)
[2018-10-20] MEDS: Multivitamin W/ Minerals 1 TAB PO SCH (08:33)
[2018-10-20] MEDS: Lisinopril 10 MG TAB PO SCH ×2 (08:33→21:28)
[2018-10-20] MEDS: Aspirin 81 mg Enteric Coated Tablet PO SCH (08:33)
[2018-10-20] MEDS: Apixaban 5 MG TAB PO SCH ×2 (08:33→21:31)
[2018-10-20] MEDS: Rifampin 300 MG CAP PO SCH ×2 (10:17→21:28)
--- NOTE | 2018-10-20 14:58 | PRG ---
DATE OF SERVICE: 10/19/2018 SUBJECTIVE: The patient is an 82-year-old white male, patient of Dr. Micha Reed, who has had a history of septic arthritis of his right knee requiring treatment with IV vancomycin. He has significant deconditioning secondary to his pain and had altered mental status, which appears to be chronic, limiting his therapy. His atrial fibrillation has been rate controlled and anticoagulated. He has had no further seizures on medication. OBJECTIVE: VITAL SIGNS: Temperature 97.8, pulse 70, respirations 23, and O2 sats 95% on room air. LUNGS: Clear. CARDIAC: Showed regular rhythm. ABDOMEN: Soft and nontender. His IV antibiotics have been discontinued and now he is on doxycycline until October as well as rifampin. He is also, however, maintaining PT/OT as he is unable to maintain ADLs. ASSESSMENT: 1. Stabilizing septic arthritis, on oral doxycycline for the next three weeks and then on doxycycline suppression indefinitely. 2. Severe deconditioning with inability to maintain ADLs, minimally improving. 3. Hypertension, controlled to goal. 4. Seizure disorder. No evidence of recurrence. PLAN: 1. Continue PT/OT. 2. Continue Vibramycin and rifampin until October. 3. Continue rate control and anticoagulation of atrial fibrillation. Job ID: [id number]
[2018-10-21] MEDS: Doxycycline 100 MG CAP PO SCH ×2 (08:56→21:17)
[2018-10-21] MEDS: Apixaban 5 MG TAB PO SCH ×2 (08:57→21:17)
[2018-10-21] MEDS: Multivitamin W/ Minerals 1 TAB PO SCH (08:57)
[2018-10-21] MEDS: Lisinopril 10 MG TAB PO SCH ×2 (08:57→21:17)
[2018-10-21] MEDS: levETIRAcetam 500 MG TAB PO SCH ×2 (08:57→21:15)
[2018-10-21] MEDS: Ferrous Sulfate 325 MG TAB PO SCH ×2 (08:57→16:44)
[2018-10-21] MEDS: Famotidine 20 MG TAB PO SCH (08:57)
[2018-10-21] MEDS: Aspirin 81 mg Enteric Coated Tablet PO SCH (08:57)
[2018-10-21] MEDS: Rifampin 300 MG CAP PO SCH ×2 (08:58→22:43)
[2018-10-21] MEDS: Pregabalin 75 MG CAP PO SCH ×2 (08:58→21:16)
--- NOTE | 2018-10-21 09:55 | PRG ---
DATE OF SERVICE: SUBJECTIVE: Mr. Salazar is a very pleasant 82-year-old white male, who had herpes zoster ophthalmicus. He also has significant deconditioning. Initially, he was admitted to inpatient rehab where he had an aspiration pneumonia. He had to be transferred back to the acute hospital for treatment. He did fairly well and was discharged back to rehab where unfortunately he fell and sustained a right hip fracture. He was stabilized after surgical correction. He went back to rehab and developed fever and chills, ended up having a bacteremia growing MRSA. He also developed MRSA infection in his right hip and had to have his hip washed out. He had recurrent infections, they took him back to the OR where his hardware was removed, he had a washout, and new hardware was placed. Now, he continues on IV antibiotics. The patient states he is doing well this morning, but he is a little sleepy. He knows it is Monday and he can rest and he has no therapy today. OBJECTIVE: VITAL SIGNS: Today reveal blood pressure 140/68, pulse 96 to 97, respirations 18, O2 saturation 96% to 97% on room air. GENERAL: This is a well-developed, thin 82-year-old white male, in no apparent distress at this time. HEENT: Reveals normocephalic and nontraumatic cranium. Pupils equal, round, and reactive. Extraocular movements are intact. Nose and throat are slightly dry. NECK: Supple without masses, nodes, or bruits. CHEST: Clear to auscultation. No rales, rhonchi, wheezes, or cough is heard. HEART: Reveals a regular rate and rhythm without murmurs, gallops, or rubs. ABDOMEN: Soft, nontender without organomegaly. Normal bowel sounds are noted. No rebound or guarding is noted. : Deferred. EXTREMITIES: Reveal no clubbing, cyanosis, or edema. The patient does have a heel pad on the right heel and he has elevation of the heel off the bed. ASSESSMENT: 1. Septic arthritis, presently on doxycycline for the next 3 weeks. 2. After he finished his oral doxycycline, he will be on doxycycline suppressant indefinitely. 3. Severe deconditioning with inability to maintain his ADLs. 4. Hypertension, which is stable. 5. Seizure disorder which reveals no evidence of recurrent seizure. 6. Generalized weakness. PLAN: 1. Continue Vibramycin and rifampin until November 02 and switch to suppressive therapy. 2. Continue Physical Therapy and Occupational Therapy. 3. Continue anticoagulation for atrial fibrillation. 4. Continue incision care. 5. DVT and stress ulcer prophylaxis. 6. Decubitus precautions. 7. I did answer all the patient's questions. 8. No family at bedside. Job ID: [id number]
[2018-10-22] MEDS: Ferrous Sulfate 325 MG TAB PO SCH ×2 (09:32→17:25)
[2018-10-22] MEDS: Famotidine 20 MG TAB PO SCH (09:34)
[2018-10-22] MEDS: levETIRAcetam 500 MG TAB PO SCH ×2 (09:34→21:50)
[2018-10-22] MEDS: Lisinopril 10 MG TAB PO SCH ×2 (09:35→21:54)
[2018-10-22] MEDS: Pregabalin 75 MG CAP PO SCH ×2 (09:36→21:53)
[2018-10-22] MEDS: Multivitamin W/ Minerals 1 TAB PO SCH (09:45)
[2018-10-22] MEDS: Rifampin 300 MG CAP PO SCH ×2 (09:46→21:52)
[2018-10-22] MEDS: Doxycycline 100 MG CAP PO SCH ×2 (09:46→21:53)
[2018-10-22] MEDS: Aspirin 81 mg Enteric Coated Tablet PO SCH (09:46)
[2018-10-22] MEDS: Apixaban 5 MG TAB PO SCH ×2 (09:47→21:53)
--- NOTE | 2018-10-22 14:02 | PRG ---
DATE OF SERVICE: 10/22/2018 SUBJECTIVE: Mr. Salazar is doing the same. Denies any complaints. Pleasantly confused. His spouse is in the room. I advised her to have her come and attend the weekly case conference tomorrow. She also is aware of his episodes of confusion, and she is not sure what her plan is for his discharge. He is currently now on oral antibiotics from the until the and then just on doxycycline suppressive therapy for a long time. OBJECTIVE: VITAL SIGNS: He is afebrile, heart rate 67, respirations 16, oxygen saturation 96% on room air, and blood pressure 175/79. CARDIOVASCULAR SYSTEM: S1 and S2 plus. RESPIRATORY SYSTEM: Normal vesicular breath sounds. ABDOMEN: Soft, nontender. Bowel sounds heard in all quadrants. EXTREMITIES: Without cyanosis or clubbing. CENTRAL NERVOUS SYSTEM: Pleasantly confused. Awake and responsive. Cranial nerves 2 through 12 intact. Generalized weakness. LABORATORY VALUES: Sedimentation rate is 44, CRP is 3.3. IMPRESSION: 1. Methicillin-resistant Staphylococcus aureus of the right hip, requiring multiple surgeries, removal of hardware and replacement and new hardware. 2. Postherpetic neuralgia. 3. Seizure disorder. 4. Atrial fibrillation. 5. Hypertension. 6. Coronary artery disease. 7. History of cerebrovascular accident with right-sided weakness. PLAN: 1. Continue oral antibiotics. This was changed by Dr. Norris on 10/19. I assume he talk to the Infectious Disease physician, but we will check with him. 2. Recheck CBC, CMP, CRP, and sedimentation rate tomorrow. 3. Monitor right hip incision site. 4. Physical Therapy. 5. Discussed with the patient and in detail. 6. DVT and stress ulcer prophylaxis. 7. Decubitus precautions. 8. Discharge planning. 9. Not sure how the patient will make it at home, especially if he has to be alone. Job ID: [id number]
[2018-10-23 05:41] LABS: #Basophils 0.1 thou/uL (0.0-0.2); #Eosinphils 0.3 thou/uL (0.0-0.7); #Lymphocytes 0.9 thou/uL (1.20-3.40); #Monocytes 0.6 thou/uL (0.11-0.59); #Neutrophils 1.9 thou/uL (1.40-6.50); %Eosinophils 8.5 % (0.0-10.0); %Monocytes 14.4 % (0.0-10.0); %Neutrophils 51.1 % (42.0-75.0); Hemoglobin 10.7 g/dL (14.0-18.0); Mean Corpuscular Hemoglobin 27.7 pg (27.0-31.0); Mean Corpuscular Volume 89.5 fL (78.0-98.0); Platelet Count 252 thou/uL (130-400); RBC Distribution Width 13.4 % (11.5-14.5); Red Blood Cell (RBC) Count 3.85 mill/uL (4.70-6.10); White Blood Cell (WBC) Count 3.8 thou/uL (4.8-10.8)
[2018-10-23 06:36] LABS: Anion Gap 14 mmol/L (10-20); BUN (Urea Nitrogen) 19 mg/dL (8.4-25.7); Carbon Dioxide 27 mmol/L (23-31); Chloride 101 mmol/L (98-107); Sodium 138 mmol/L (136-145)
[2018-10-23 06:37] LABS: ALT (SGPT) 19 U/L (8-55); AST (SGOT) 21 U/L (5-34); Albumin 3.2 g/dL (3.4-4.8); Alkaline Phosphatase 113 U/L (40-150); Bilirubin, Total 0.5 mg/dL (0.2-1.2); CRP (Inflammatory) 1.08 mg/dL (= or < 0.5); Calc. Creatinine Clearance 79 mL/min (70-130); Calcium 9.1 mg/dL (7.8-10.44); Estimated GFR-MDRD Greater than 90; Globulin 2.5 g/dL (2.4-3.5); Glucose 101 mg/dL (83-110); Protein, Total 5.7 g/dL (5.8-8.1)
[2018-10-23] MEDS: Ferrous Sulfate 325 MG TAB PO SCH ×2 (08:03→16:46)
[2018-10-23] MEDS: Doxycycline 100 MG CAP PO SCH ×2 (08:03→20:53)
[2018-10-23] MEDS: Apixaban 5 MG TAB PO SCH ×2 (08:03→20:54)
[2018-10-23] MEDS: Lisinopril 10 MG TAB PO SCH ×2 (08:03→20:54)
[2018-10-23] MEDS: Famotidine 20 MG TAB PO SCH (08:03)
[2018-10-23] MEDS: levETIRAcetam 500 MG TAB PO SCH ×2 (08:04→20:52)
[2018-10-23] MEDS: Multivitamin W/ Minerals 1 TAB PO SCH (08:04)
[2018-10-23] MEDS: Pregabalin 75 MG CAP PO SCH ×2 (08:04→20:53)
[2018-10-23] MEDS: Aspirin 81 mg Enteric Coated Tablet PO SCH (08:06)
[2018-10-23] MEDS: HYDROcodone/Acetaminophen 5/325 mg Tablet PO PRN (10:02)
[2018-10-23] MEDS: Rifampin 300 MG CAP PO SCH ×2 (10:02→20:53)
--- NOTE | 2018-10-23 14:06 | PRG ---
DATE OF SERVICE: 10/23/2018 SUBJECTIVE: Mr. Salazar is up in his chair and just finished his lunch. His has gone up for the weekly case conference. No concerns or questions. OBJECTIVE: VITAL SIGNS: He is afebrile, heart rate 74, respirations 20, oxygen saturation 95% on room air, blood pressure 166/74. CARDIOVASCULAR SYSTEM: S1 and S2 plus. RESPIRATORY SYSTEM: Normal vesicular breath sounds. ABDOMEN: Soft and nontender. Bowel sounds heard in all quadrants. EXTREMITIES: Without cyanosis or clubbing. CENTRAL NERVOUS SYSTEM: Awake and responsive, slightly confused. Cranial nerves 2 through 12 are intact. Improving weakness from his CVA. LABORATORY VALUES: Show a white count of 3.8, H and H are 10.7 and 34.5. Sodium 138, potassium 4.0, BUN and creatinine are 19 and 0.68. IMPRESSION: 1. Methicillin-resistant Staphylococcus aureus infection to his right hip after undergoing open reduction and internal fixation, requiring removal of hardware and replacement. 2. History of cerebrovascular accident. Improving right-sided weakness from his cerebrovascular accident. 3. Atrial fibrillation. 4. Hypertension. 5. Coronary artery disease. 6. Seizure disorder. 7. Postherpetic neuralgia. PLAN: 1. Continue oral antibiotics. 2. His CRP is actually down to 1.08. His sedimentation rate is pending. 3. Nutritional support. 4. Therapy. 5. Discharge planning. 6. DVT and stress ulcer prophylaxis. 7. Decubitus precautions. 8. Discussed with nursing. Job ID: [id number]
[2018-10-24] MEDS: Multivitamin W/ Minerals 1 TAB PO SCH (08:42)
[2018-10-24] MEDS: Doxycycline 100 MG CAP PO SCH ×2 (08:42→21:04)
[2018-10-24] MEDS: HYDROcodone/Acetaminophen 5/325 mg Tablet PO PRN (08:43)
[2018-10-24] MEDS: Ferrous Sulfate 325 MG TAB PO SCH ×2 (08:44→16:55)
[2018-10-24] MEDS: Lisinopril 10 MG TAB PO SCH ×2 (08:44→21:05)
[2018-10-24] MEDS: Aspirin 81 mg Enteric Coated Tablet PO SCH (08:44)
[2018-10-24] MEDS: Famotidine 20 MG TAB PO SCH (08:44)
[2018-10-24] MEDS: levETIRAcetam 500 MG TAB PO SCH ×2 (08:45→21:02)
[2018-10-24] MEDS: Apixaban 5 MG TAB PO SCH ×2 (08:45→21:05)
[2018-10-24] MEDS: Pregabalin 75 MG CAP PO SCH ×2 (08:45→21:03)
[2018-10-24] MEDS: Rifampin 300 MG CAP PO SCH ×2 (10:37→21:03)
[2018-10-25] MEDS: levETIRAcetam 500 MG TAB PO SCH ×2 (08:07→20:49)
[2018-10-25] MEDS: Multivitamin W/ Minerals 1 TAB PO SCH (08:07)
[2018-10-25] MEDS: Apixaban 5 MG TAB PO SCH ×2 (08:08→20:48)
[2018-10-25] MEDS: Aspirin 81 mg Enteric Coated Tablet PO SCH (08:08)
[2018-10-25] MEDS: Doxycycline 100 MG CAP PO SCH ×2 (08:08→20:48)
[2018-10-25] MEDS: Lisinopril 10 MG TAB PO SCH ×2 (08:09→20:49)
[2018-10-25] MEDS: Famotidine 20 MG TAB PO SCH (08:09)
[2018-10-25] MEDS: Ferrous Sulfate 325 MG TAB PO SCH ×2 (08:09→17:46)
[2018-10-25] MEDS: Pregabalin 75 MG CAP PO SCH (08:10)
[2018-10-25] MEDS: HYDROcodone/Acetaminophen 5/325 mg Tablet PO PRN (08:15)
--- NOTE | 2018-10-25 10:18 | PRG ---
DATE OF SERVICE: 10/25/2018 SUBJECTIVE: Mr. Salazar is up in bed and denies any concerns. Apparently, he was not given his Lyrica this morning as it seems to make him sleepy according to his . He has been on gabapentin in the past for postherpetic neuralgia. I am not sure why he was switched to Lyrica, but the plan is to keep him off the Lyrica and see how he does from a pain standpoint, and if he has any worsening pain, then we will try a Lidoderm patch in the left occipital nerve area and see if that makes a difference. If it does not, then we will start him on gabapentin. Also sutures will be removed today and a trial of removing his Sherman catheter today. OBJECTIVE: VITAL SIGNS: He is afebrile. Heart rate 76, respirations 18, oxygen saturation 98% on room air, blood pressure 161/76. CARDIOVASCULAR: S1 and S2 plus. RESPIRATORY: Normal vesicular breath sounds. ABDOMEN: Soft, nontender. Bowel sounds heard in all quadrants. EXTREMITIES: Without cyanosis, clubbing. Peripheral pulses are palpable. Right hip incision is healthy. CENTRAL NERVOUS SYSTEM: Awake and responsive, confused, generalized weakness. IMPRESSION: 1. MRSA infection of the right hip, requiring removal of hardware and replacement, currently on oral antibiotics. 2. Postherpetic neuralgia. 3. Cognitive impairment. 4. History of CVA with residual right-sided weakness. 5. Atrial fibrillation. 6. Hypertension. 7. Coronary artery disease. 8. Seizure disorder. PLAN: 1. Continue oral antibiotics. 2. Hold Lyrica. 3. Nutritional support with heart healthy diet. 4. Seizure precautions. 5. Remove sutures. 6. Trial of removing Sherman and placement of diaper. 7. DVT AND stress ulcer prophylaxis. 8. Decubitus precautions. 9. Therapy. Job ID: [id number]
[2018-10-25] MEDS: Rifampin 300 MG CAP PO SCH ×2 (10:31→20:48)
[2018-10-26] MEDS: Multivitamin W/ Minerals 1 TAB PO SCH (08:27)
[2018-10-26] MEDS: levETIRAcetam 500 MG TAB PO SCH ×2 (08:27→20:39)
[2018-10-26] MEDS: Famotidine 20 MG TAB PO SCH (08:27)
[2018-10-26] MEDS: Doxycycline 100 MG CAP PO SCH ×2 (08:27→20:39)
[2018-10-26] MEDS: Apixaban 5 MG TAB PO SCH ×2 (08:28→20:40)
[2018-10-26] MEDS: Aspirin 81 mg Enteric Coated Tablet PO SCH (08:28)
[2018-10-26] MEDS: Ferrous Sulfate 325 MG TAB PO SCH ×2 (08:28→16:57)
[2018-10-26] MEDS: Lisinopril 10 MG TAB PO SCH ×2 (08:28→20:40)
[2018-10-26] MEDS: Rifampin 300 MG CAP PO SCH ×2 (10:37→20:40)
[2018-10-26 12:16] LABS: #Eosinphils 0.1 thou/uL (0.0-0.7); #Lymphocytes 0.7 thou/uL (1.20-3.40); #Monocytes 0.7 thou/uL (0.11-0.59); #Neutrophils 5.2 thou/uL (1.40-6.50); %Basophils 0.6 % (0.0-1.0); %Eosinophils 1.5 % (0.0-10.0); %Lymphocytes 10.6 % (21.0-51.0); %Monocytes 10.6 % (0.0-10.0); %Neutrophils 76.7 % (42.0-75.0); Hemoglobin 11.9 g/dL (14.0-18.0); Mean Corpuscular HGB CONC 30.6 g/dL (32.0-36.0); Mean Corpuscular Hemoglobin 27.2 pg (27.0-31.0); Mean Corpuscular Volume 88.7 fL (78.0-98.0); Platelet Count 232 thou/uL (130-400); RBC Distribution Width 13.3 % (11.5-14.5); Red Blood Cell (RBC) Count 4.39 mill/uL (4.70-6.10); White Blood Cell (WBC) Count 6.7 thou/uL (4.8-10.8)
--- NOTE | 2018-10-26 12:16 | RAD ---
FRONTAL VIEW CHEST: COMPARISON: 08/17/2018. INDICATION: Abnormal lung sounds, emesis. FINDINGS: Interstitial prominence is visualized without lobar consolidation or significant effusion. Postopera tive cardiomediastinal silhouette is similar appearing. IMPRESSION: Interstitial opacities which may relate to edema or interstitial lung disease. No superimposed lobar consolidation. POS: [facility]
[2018-10-26 12:30] LABS: ALT (SGPT) 20 U/L (8-55); AST (SGOT) 14 U/L (5-34); Albumin 3.6 g/dL (3.4-4.8); Alkaline Phosphatase 126 U/L (40-150); Anion Gap 16 mmol/L (10-20); BUN (Urea Nitrogen) 22 mg/dL (8.4-25.7); Bilirubin, Total 0.3 mg/dL (0.2-1.2); Calc. Creatinine Clearance 69 mL/min (70-130); Calcium 9.5 mg/dL (7.8-10.44); Carbon Dioxide 29 mmol/L (23-31); Chloride 95 mmol/L (98-107); Estimated GFR-MDRD Greater than 90; Globulin 2.9 g/dL (2.4-3.5); Glucose 98 mg/dL (83-110); Protein, Total 6.5 g/dL (5.8-8.1); Sodium 136 mmol/L (136-145)
[2018-10-26] MEDS: HYDROcodone/Acetaminophen 5/325 mg Tablet PO PRN (15:19)
[2018-10-27] MEDS: Ferrous Sulfate 325 MG TAB PO SCH ×2 (07:59→16:23)
[2018-10-27] MEDS: Apixaban 5 MG TAB PO SCH ×2 (08:57→21:01)
[2018-10-27] MEDS: Doxycycline 100 MG CAP PO SCH ×2 (08:57→21:01)
[2018-10-27] MEDS: levETIRAcetam 500 MG TAB PO SCH ×2 (08:57→21:01)
[2018-10-27] MEDS: Famotidine 20 MG TAB PO SCH (08:58)
[2018-10-27] MEDS: Multivitamin W/ Minerals 1 TAB PO SCH (08:58)
[2018-10-27] MEDS: Aspirin 81 mg Enteric Coated Tablet PO SCH (08:58)
[2018-10-27] MEDS: Lisinopril 10 MG TAB PO SCH ×2 (08:58→21:01)
[2018-10-27] MEDS: Rifampin 300 MG CAP PO SCH ×4 (10:59→21:01)
[2018-10-27] MEDS: HYDROcodone/Acetaminophen 5/325 mg Tablet PO PRN ×2 (13:06→20:59)
--- NOTE | 2018-10-27 14:21 | PRG ---
DATE OF SERVICE: 10/27/2018 SUBJECTIVE: Mr. Salazar is doing the same. He is confused. He did have an episode of vomiting yesterday, and a Code Green was called. His vital signs were stable. Workup was essentially unremarkable. I had a long discussion with his . She agrees that Mr. Salazar is not physically or mentally safe to be at home. I advised her that I am going to consult Case Management and she needs to start looking at some long-term care facilities. His Lyrica was discontinued yesterday because they thought that might be what is causing his somnolence, but it has not made any difference. We will try Lidoderm patch to his left ophthalmic region to see if it helps with his pain. OBJECTIVE: VITAL SIGNS: He is afebrile, heart rate 80, respirations 18, oxygen saturation 98% on room air, blood pressure 161/77. CARDIOVASCULAR: S1 and S2 plus. RESPIRATORY: Normal vesicular breath sounds. ABDOMEN: Soft, nontender. Bowel sounds heard in all quadrants. EXTREMITIES: Without cyanosis or clubbing. CENTRAL NERVOUS SYSTEM: Awake but confused. Generalized weakness. IMPRESSION: 1. Postherpetic neuralgia. 2. Methicillin-resistant Staphylococcus aureus infection of right hip, requiring removal of hardware and replacement. 3. Atrial fibrillation. 4. Hypertension. 5. Coronary artery disease. 6. Seizure disorder. 7. History of CVA with residual right-sided weakness. PLAN: 1. Continue current medications. 2. Nutritional support. 3. Monitor cognitive status. 4. Routine laboratory values. 5. Discharge planning, we will consult Case Management. 6. Trial of Lidoderm patch. 7. We will not do ibuprofen for pain, given the risk of renal insufficiency and GI side effects. Discussed with and nursing. Job ID: [id number]
[2018-10-28] MEDS: Ferrous Sulfate 325 MG TAB PO SCH ×3 (08:04→17:47)
[2018-10-28] MEDS: Doxycycline 100 MG CAP PO SCH ×3 (08:05→20:52)
[2018-10-28] MEDS: Apixaban 5 MG TAB PO SCH ×3 (08:05→20:52)
[2018-10-28] MEDS: levETIRAcetam 500 MG TAB PO SCH ×2 (08:05→08:18)
[2018-10-28] MEDS: Aspirin 81 mg Enteric Coated Tablet PO SCH ×2 (08:05→08:17)
[2018-10-28] MEDS: Famotidine 20 MG TAB PO SCH ×2 (08:06→08:17)
[2018-10-28] MEDS: Lisinopril 10 MG TAB PO SCH ×3 (08:06→20:53)
[2018-10-28] MEDS: Lidocaine 5% Patch TD SCH (08:06)
[2018-10-28] MEDS: Multivitamin W/ Minerals 1 TAB PO SCH ×2 (08:06→08:18)
[2018-10-28] MEDS: Rifampin 300 MG CAP PO SCH ×2 (09:47→20:52)
[2018-10-28] MEDS: HYDROcodone/Acetaminophen 5/325 mg Tablet PO PRN ×2 (13:09→20:54)
--- NOTE | 2018-10-28 15:01 | PRG ---
DATE OF SERVICE: 10/28/2018 SUBJECTIVE: Mr. Salazar is doing the same. He apparently refused his medicines this morning. His is aware. I reinforced to him the importance of being compliant with his medications, especially his antibiotics and nutrition. OBJECTIVE: VITAL SIGNS: He is afebrile. Heart rate is 102, respirations are 22, blood pressure 133/85, and oxygen saturation 96% on room air. CARDIOVASCULAR SYSTEM: S1 and S2 plus. RESPIRATORY SYSTEM: Normal vesicular breath sounds. ABDOMEN: Soft and nontender. Bowel sounds heard in all quadrants. EXTREMITIES: Without cyanosis or clubbing. CENTRAL NERVOUS SYSTEM: Awake and responsive, but confused. Generalized weakness. IMPRESSION: 1. 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 2. Atrial fibrillation. 3. Hypertension. 4. Coronary artery disease. 5. Seizure disorder. 6. History of cerebrovascular accident with residual right-sided weakness. PLAN: 1. Continue current medications and encourage compliance with medications. 2. Advise nursing to try giving him the medicine now and if he refuses, give him an hour and then try it again. 3. DVT prophylaxis. He is on Eliquis. 4. Decubitus precautions. 5. Stress ulcer prophylaxis. 6. Seizure precaution. 7. Nutritional support. 8. Discharge planning. is going to look at long-term care facilities. 9. Poor terminal superintendent prognosis. Job ID: [id number]
[2018-10-28] MEDS: levETIRAcetam 500 mg/5 ml Oral Solution PO SCH (20:53)
[2018-10-28] MEDS: Atenolol 25 MG TAB PO SCH (20:53)
[2018-10-28] MEDS: Lidocaine Patch Removal 1 EACH TOP SCH (20:56)
[2018-10-29] MEDS: HYDROcodone/Acetaminophen 5/325 mg Tablet PO PRN ×2 (08:04→20:48)
[2018-10-29] MEDS: Aspirin 81 mg Enteric Coated Tablet PO SCH (08:06)
[2018-10-29] MEDS: Atenolol 25 MG TAB PO SCH ×2 (08:06→20:47)
[2018-10-29] MEDS: Ferrous Sulfate 325 MG TAB PO SCH ×2 (08:07→17:26)
[2018-10-29] MEDS: Apixaban 5 MG TAB PO SCH ×2 (08:07→20:47)
[2018-10-29] MEDS: Famotidine 20 MG TAB PO SCH (08:07)
[2018-10-29] MEDS: Multivitamin W/ Minerals 1 TAB PO SCH (08:07)
[2018-10-29] MEDS: Lisinopril 10 MG TAB PO SCH ×2 (08:08→20:48)
[2018-10-29] MEDS: levETIRAcetam 500 mg/5 ml Oral Solution PO SCH ×2 (08:08→20:47)
[2018-10-29] MEDS: Lidocaine 5% Patch TD SCH (08:08)
[2018-10-29] MEDS: Lidocaine Patch Removal 1 EACH TOP SCH (20:49)
[2018-10-30] MEDS: levETIRAcetam 500 mg/5 ml Oral Solution PO SCH ×2 (08:28→21:01)
[2018-10-30] MEDS: HYDROcodone/Acetaminophen 5/325 mg Tablet PO PRN ×2 (08:28→21:03)
[2018-10-30] MEDS: Aspirin 81 mg Enteric Coated Tablet PO SCH (08:28)
[2018-10-30] MEDS: Atenolol 25 MG TAB PO SCH ×2 (08:29→21:03)
[2018-10-30] MEDS: Multivitamin W/ Minerals 1 TAB PO SCH (08:29)
[2018-10-30] MEDS: Ferrous Sulfate 325 MG TAB PO SCH ×2 (08:29→17:21)
[2018-10-30] MEDS: Apixaban 5 MG TAB PO SCH ×2 (08:29→21:03)
[2018-10-30] MEDS: Lisinopril 10 MG TAB PO SCH ×2 (08:29→21:03)
[2018-10-30] MEDS: Famotidine 20 MG TAB PO SCH (08:29)
[2018-10-30] MEDS: Lidocaine 5% Patch TD SCH (08:30)
--- NOTE | 2018-10-30 17:39 | PRG ---
DATE OF SERVICE: 10/30/2018 SUBJECTIVE: Mr. Salazar is looking and feeling much better. He is eating his lunch. No family at bedside, discussed with nursing. OBJECTIVE: VITAL SIGNS: He is afebrile. Heart rate 80, respirations 20, oxygen saturation 94% on room air, blood pressure is 133/85. CARDIOVASCULAR: S1 and S2 plus. RESPIRATORY: Normal vesicular breath sounds. ABDOMEN: Soft, nontender. Bowel sounds heard in all quadrants. EXTREMITIES: Without cyanosis or clubbing. Peripheral pulses are palpable. CENTRAL NERVOUS SYSTEM: Awake and responsive, pleasantly confused. Generalized weakness. IMPRESSION: 1. Status post right hip removal and replacement of hardware for MRSA infection. 2. Atrial fibrillation. 3. postherpetic neuralgia. 4. Hypertension. 5. Coronary artery disease. 6. Seizure disorder. 7. History of CVA with residual right-sided weakness. PLAN: 1. Continue current medications. 2. Nutritional support with heart healthy diet. 3. Monitor heart rate and rhythm. 4. DVT prophylaxis. He is on Eliquis. 5. Decubitus precautions. 6. Stress ulcer prophylaxis. 7. Incision care. 8. Continue oral antibiotics. 9. Weekly CBC, CMP, CRP, and sedimentation rate. 10. Discussed with the patient and nursing in detail. All questions answered. Job ID: [id number]
[2018-10-30] MEDS: Lidocaine Patch Removal 1 EACH TOP SCH (21:03)
[2018-10-31] MEDS: levETIRAcetam 500 mg/5 ml Oral Solution PO SCH ×2 (07:58→21:30)
[2018-10-31] MEDS: Aspirin 81 mg Enteric Coated Tablet PO SCH (07:59)
[2018-10-31] MEDS: Ferrous Sulfate 325 MG TAB PO SCH ×2 (07:59→17:33)
[2018-10-31] MEDS: Multivitamin W/ Minerals 1 TAB PO SCH (07:59)
[2018-10-31] MEDS: Famotidine 20 MG TAB PO SCH (08:00)
[2018-10-31] MEDS: Apixaban 5 MG TAB PO SCH ×2 (08:01→21:31)
[2018-10-31] MEDS: Lidocaine 5% Patch TD SCH ×2 (08:01→08:03)
[2018-10-31] MEDS: Lisinopril 10 MG TAB PO SCH ×2 (08:05→21:31)
[2018-10-31] MEDS: Atenolol 25 MG TAB PO SCH ×2 (08:06→21:32)
[2018-10-31] MEDS ORDERED: Milk Of Magnesia 30 ML UDCUP PO PRN (11:17)
[2018-10-31] MEDS ORDERED: Ondansetron ODT 4 MG TAB PO PRN (11:18)
[2018-10-31] MEDS ORDERED: Polyethylene Glycol 3350 17 GM Packet PO PRN (11:18)
--- NOTE | 2018-10-31 13:34 | PRG ---
DATE OF SERVICE: 10/31/2018 SUBJECTIVE: Mr. Salazar is up in his chair, eating lunch. He states that his has gone upstairs to a meeting. He has been much more alert and responsive. No concerns or questions. is trying to figure out a long-term prison facility for him to go. OBJECTIVE: VITAL SIGNS: He is afebrile, heart rate 91, respirations 20, oxygen saturation 98% on room air, blood pressure 158/76. CARDIOVASCULAR: S1 and S2 plus. RESPIRATORY: Normal vesicular breath sounds. ABDOMEN: Soft and nontender. Bowel sounds heard in all quadrants. EXTREMITIES: Without cyanosis or clubbing. CENTRAL NERVOUS SYSTEM: Awake and responsive. Cranial nerves 2 through 12 grossly intact. A minimal right-sided weakness. IMPRESSION: 1. Methicillin-resistant Staphylococcus aureus infection, requiring removal of right hip hardware with replacement. 2. Atrial fibrillation, rate controlled. 3. Postherpetic neuralgia, much improved. 4. Hypertension. 5. Coronary artery disease. 6. Seizure disorder. 7. History of cerebrovascular accident with residual right-sided weakness. 8. Improving deconditioning as well as cognitive status. PLAN: 1. Continue current medications. 2. Heart-healthy diet. 3. Monitor heart rate and rhythm. 4. DVT prophylaxis - he is on Eliquis. 5. Decubitus precautions. 6. Stress ulcer prophylaxis. 7. Orthopedic precautions. 8. Routine laboratory values. 9. Continue antibiotics. 10. Probiotics. 11. Physical therapy. 12. Discussed with the patient and nursing in detail, and all questions were answered. Job ID: [id number]
[2018-10-31] MEDS: Doxycycline 100 MG CAP PO SCH (21:31)
[2018-10-31] MEDS: Rifampin 300 MG CAP PO SCH (21:31)
[2018-10-31] MEDS: Lidocaine Patch Removal 1 EACH TOP SCH (21:32)
[2018-11-01] MEDS: Lidocaine 5% Patch TD SCH (09:43)
[2018-11-01] MEDS: levETIRAcetam 500 mg/5 ml Oral Solution PO SCH ×2 (09:46→21:57)
[2018-11-01] MEDS: Aspirin 81 mg Enteric Coated Tablet PO SCH (09:47)
[2018-11-01] MEDS: Doxycycline 100 MG CAP PO SCH ×2 (09:48→21:58)
[2018-11-01] MEDS: Ferrous Sulfate 325 MG TAB PO SCH ×2 (09:49→17:50)
[2018-11-01] MEDS: Apixaban 5 MG TAB PO SCH ×2 (09:49→21:58)
[2018-11-01] MEDS: Atenolol 25 MG TAB PO SCH ×2 (09:49→21:58)
[2018-11-01] MEDS: Multivitamin W/ Minerals 1 TAB PO SCH (09:50)
[2018-11-01] MEDS: Lisinopril 10 MG TAB PO SCH ×2 (09:52→21:58)
[2018-11-01] MEDS: Famotidine 20 MG TAB PO SCH (09:53)
[2018-11-01] MEDS: HYDROcodone/Acetaminophen 5/325 mg Tablet PO PRN ×2 (10:05→21:59)
[2018-11-01] MEDS: Rifampin 300 MG CAP PO SCH ×2 (10:05→21:58)
[2018-11-01] MEDS: Lidocaine Patch Removal 1 EACH TOP SCH (21:59)
[2018-11-02] MEDS: levETIRAcetam 500 mg/5 ml Oral Solution PO SCH ×2 (07:56→20:44)
[2018-11-02] MEDS: Multivitamin W/ Minerals 1 TAB PO SCH (07:56)
[2018-11-02] MEDS: Ferrous Sulfate 325 MG TAB PO SCH ×2 (07:57→16:07)
[2018-11-02] MEDS: Atenolol 25 MG TAB PO SCH ×2 (07:57→20:43)
[2018-11-02] MEDS: Aspirin 81 mg Enteric Coated Tablet PO SCH (07:57)
[2018-11-02] MEDS: Apixaban 5 MG TAB PO SCH ×2 (07:57→20:43)
[2018-11-02] MEDS: Famotidine 20 MG TAB PO SCH (07:57)
[2018-11-02] MEDS: Lisinopril 10 MG TAB PO SCH ×2 (07:58→20:43)
[2018-11-02] MEDS: Doxycycline 100 MG CAP PO SCH ×2 (07:58→20:43)
[2018-11-02] MEDS: Lidocaine 5% Patch TD SCH (07:58)
[2018-11-02] MEDS: Rifampin 300 MG CAP PO SCH ×2 (09:30→20:43)
--- NOTE | 2018-11-02 11:00 | PRG ---
DATE OF SERVICE: 11/01/2018 SUBJECTIVE: Mr. Salazar is doing the same. Denies any complaints. Resting comfortably. His is not in the room. Discussed with nursing. OBJECTIVE: VITAL SIGNS: He is afebrile, heart rate is 95, respirations are 18, blood pressure is 131/60. CARDIOVASCULAR: S1 and S2 plus. RESPIRATORY: Normal vesicular breath sounds. ABDOMEN: Soft and nontender. Bowel sounds heard in all quadrants. EXTREMITIES: Without cyanosis or clubbing. CENTRAL NERVOUS SYSTEM: Awake and more alert than usual. Still confused. Improving right-sided weakness. IMPRESSION: 1. Right hip methicillin-resistant Staphylococcus aureus infection requiring removal and replacement of hardware. 2. Postherpetic neuralgia. 3. Cerebrovascular accident with improving right-sided deficits. 4. Atrial fibrillation. 5. Cognitive deficits, slowly improving. 6. Deconditioning, improving. 7. Hypertension. 8. Coronary artery disease. 9. Seizure disorder. PLAN: 1. Continue current medications. 2. Heart-healthy diet. 3. Seizure precautions. 4. DVT and stress ulcer prophylaxis. 5. Decubitus precautions. 6. Routine laboratory values. 7. Orthopedic precautions. 8. Continue antibiotics. Apparently, his doxycycline and rifampin fell off, and it was not auto-renewed. He missed the doses for 3 days. He has been restarted back on it and will continue it for an extra week just to be safe before switching him to just doxycycline. Also, advised Pharmacy to double-check on the fail-safe mechanisms to make sure this does not happen again. Job ID: [id number]
--- NOTE | 2018-11-02 12:00 | PRG ---
DATE OF SERVICE: 11/02/2018 SUBJECTIVE: Mr. Salazar is doing well. He seems to have hyperesthesia. Anytime I touch him to do any changes, he is in pain. Unfortunately, he is off both his Lyrica and gabapentin as family and nurses felt like it was making him more confused and lethargic, which it was. We will continue to monitor and may resume him on a low-dose gabapentin if this does not improve. OBJECTIVE: VITAL SIGNS: He is afebrile, heart rate is 70, respirations 22, oxygen saturation 93% on room air, and blood pressure 142/63. CARDIOVASCULAR SYSTEM: S1 and S2 plus. RESPIRATORY SYSTEM: Normal vesicular breath sounds. ABDOMEN: Soft and nontender. Bowel sounds heard in all quadrants. EXTREMITIES: Without cyanosis or clubbing. CENTRAL NERVOUS SYSTEM: Still with some cognitive impairment. No significant change from before. Improving deconditioning. IMPRESSION: 1. Right hip methicillin-resistant Staphylococcus aureus infection, requiring removal and replacement of hardware. 2. Postherpetic neuralgia, much improved. 3. Paroxysmal atrial fibrillation. 4. Coronary artery disease. 5. Hypertension. 6. Dyslipidemia. 7. Seizure disorder and deconditioning. PLAN: 1. Continue current medications. 2. Antibiotics until the . 3. Both doxycycline and rifampin, then just doxycycline afterwards. 4. Nutritional support. 5. DVT and stress ulcer prophylaxis. 6. Orthopedic precautions. 7. Routine laboratory values. 8. Physical therapy. 9. Placement. 10. Discussed with nursing. 11. No family at bedside. Job ID: [id number]
[2018-11-02] MEDS: HYDROcodone/Acetaminophen 5/325 mg Tablet PO PRN (16:07)
[2018-11-02] MEDS: Lidocaine Patch Removal 1 EACH TOP SCH (20:44)
[2018-11-03] MEDS: HYDROcodone/Acetaminophen 5/325 mg Tablet PO PRN ×2 (08:40→18:07)
[2018-11-03] MEDS: Lidocaine 5% Patch TD SCH (08:42)
[2018-11-03] MEDS: levETIRAcetam 500 mg/5 ml Oral Solution PO SCH ×2 (08:42→20:26)
[2018-11-03] MEDS: Doxycycline 100 MG CAP PO SCH ×2 (08:43→20:26)
[2018-11-03] MEDS: Rifampin 300 MG CAP PO SCH ×2 (08:44→21:50)
[2018-11-03] MEDS: Apixaban 5 MG TAB PO SCH ×2 (08:44→20:26)
[2018-11-03] MEDS: Atenolol 25 MG TAB PO SCH ×2 (08:44→20:25)
[2018-11-03] MEDS: Multivitamin W/ Minerals 1 TAB PO SCH (08:44)
[2018-11-03] MEDS: Ferrous Sulfate 325 MG TAB PO SCH ×2 (08:44→17:37)
[2018-11-03] MEDS: Famotidine 20 MG TAB PO SCH (08:44)
[2018-11-03] MEDS: Aspirin 81 mg Enteric Coated Tablet PO SCH (08:44)
[2018-11-03] MEDS: Lisinopril 10 MG TAB PO SCH ×2 (08:44→20:26)
--- NOTE | 2018-11-03 09:58 | PRG ---
DATE OF SERVICE: 11/03/[address] Micha Reed. SUBJECTIVE: The patient feels well, sitting up in the bed. He is having decreasing headache, increasing appetite. Appears to be more alert, less confused. He is still very weak, but is working with therapy. He is on oral antibiotics for his MRSA infection of his right hip. OBJECTIVE: VITAL SIGNS: Blood pressure is 134/63, pulse 70, temperature 97.4, respirations 18, O2 sats 96% on room air. LUNGS: Clear. CARDIAC: Showed regular rhythm. ABDOMEN: Soft and nontender. SKIN AND EXTREMITIES: Display some tenderness to the right hip and right knee, but greatly improved. NEUROLOGIC: Shows the patient is alert with decreasing confusion, increasing generalized strength. ASSESSMENT: 1. Resolving right hip methicillin-resistant Staphylococcus aureus infection on oral doxycycline and rifampin. 2. Postherpetic neuralgia, greatly improved. 3. Cognitive dysfunction, appears to be stable and slightly improved. 4. Coronary artery disease, asymptomatic. 5. Hypertension, controlled to goal. 6. Seizure disorder, controlled with no recurrence. PLAN: 1. Continue doxycycline and rifampin. 2. Continue PT, OT. 3. Continue to monitor for recurrent atrial fibrillation. 4. Continue blood pressure control. 5. Review labs and therapy notes. Job ID: [id number]
[2018-11-03] MEDS: Lidocaine Patch Removal 1 EACH TOP SCH (20:28)
[2018-11-04] MEDS: HYDROcodone/Acetaminophen 5/325 mg Tablet PO PRN ×3 (04:10→18:06)
[2018-11-04] MEDS: Ferrous Sulfate 325 MG TAB PO SCH ×2 (08:14→17:26)
[2018-11-04] MEDS: Apixaban 5 MG TAB PO SCH ×2 (09:13→19:52)
[2018-11-04] MEDS: Famotidine 20 MG TAB PO SCH (09:13)
[2018-11-04] MEDS: Doxycycline 100 MG CAP PO SCH ×2 (09:13→19:51)
[2018-11-04] MEDS: levETIRAcetam 500 mg/5 ml Oral Solution PO SCH ×2 (09:13→20:00)
[2018-11-04] MEDS: Multivitamin W/ Minerals 1 TAB PO SCH (09:13)
[2018-11-04] MEDS: Atenolol 25 MG TAB PO SCH ×2 (09:13→19:52)
[2018-11-04] MEDS: Lisinopril 10 MG TAB PO SCH ×2 (09:14→19:51)
[2018-11-04] MEDS: Lidocaine 5% Patch TD SCH (09:14)
[2018-11-04] MEDS: Aspirin 81 mg Enteric Coated Tablet PO SCH (09:14)
[2018-11-04] MEDS: Rifampin 300 MG CAP PO SCH ×2 (09:14→21:09)
[2018-11-04] MEDS: Lidocaine Patch Removal 1 EACH TOP SCH (19:55)
--- NOTE | 2018-11-04 20:23 | PRG ---
DATE OF SERVICE: 11/04/2018 SUBJECTIVE: The patient is sitting up in the bed, awake and alert, but still minimally responsive, in no distress. OBJECTIVE: VITAL SIGNS: Show temperature is 98, pulse 94, respirations 20, O2 sat is 94% on room air, and blood pressure 137/62. LUNGS: Clear. CARDIAC: Showed regular rhythm. ABDOMEN: Soft and nontender with no masses or organomegaly. SKIN/EXTREMITIES: Show some tenderness of the right hip and knee, but some getting cachexia. NEUROLOGIC: Shows persistent confusion, but with increasing strength. ASSESSMENT: 1. Resolving right hip methicillin-resistant Staphylococcus aureus infection, on oral doxycycline and rifampin. 2. Post herpetic neuralgia, improved. 3. Cognitive dysfunction, persistent. 4. Coronary artery disease, asymptomatic. 5. Hypertension, controlled to goal. 6. Seizure control. No recurrence. PLAN: Continue doxycycline and rifampin. Continue PT and OT. Continue to monitor vital signs closely. Review labs and therapy notes. Job ID: [id number]
[2018-11-05] MEDS: Ferrous Sulfate 325 MG TAB PO SCH ×2 (08:55→17:40)
[2018-11-05] MEDS: Multivitamin W/ Minerals 1 TAB PO SCH (09:11)
[2018-11-05] MEDS: Famotidine 20 MG TAB PO SCH (09:11)
[2018-11-05] MEDS: Apixaban 5 MG TAB PO SCH ×2 (09:12→21:15)
[2018-11-05] MEDS: Atenolol 25 MG TAB PO SCH ×2 (09:12→21:16)
[2018-11-05] MEDS: Doxycycline 100 MG CAP PO SCH ×2 (09:12→21:15)
[2018-11-05] MEDS: levETIRAcetam 500 mg/5 ml Oral Solution PO SCH ×2 (09:13→21:16)
[2018-11-05] MEDS: Rifampin 300 MG CAP PO SCH ×2 (09:15→21:15)
[2018-11-05] MEDS: Aspirin 81 mg Enteric Coated Tablet PO SCH (09:15)
[2018-11-05] MEDS: Lisinopril 10 MG TAB PO SCH ×2 (09:15→21:16)
[2018-11-05] MEDS: Lidocaine 5% Patch TD SCH (09:16)
--- NOTE | 2018-11-05 10:03 | PRG ---
DATE OF SERVICE: 11/05/2018 SUBJECTIVE: Mr. Salazar is doing the same. Denies any complaints. Resting comfortably. OBJECTIVE: VITAL SIGNS: He is afebrile. Heart rate is 76, respirations 20, oxygen saturation 97% on room air, and blood pressure 134/64. CARDIOVASCULAR: S1 and S2 plus. RESPIRATORY: Normal vesicular breath sounds. ABDOMEN: Soft and nontender. Bowel sounds heard in all quadrants. EXTREMITIES: Without cyanosis or clubbing. CENTRAL NERVOUS SYSTEM: Awake and responsive, pleasantly confused, generalized weakness. IMPRESSION: 1. Recurrent right hip methicillin-resistant Staphylococcus aureus, requiring removal and replacement of hardware. 2. Paroxysmal atrial fibrillation. 3. Postherpetic neuralgia. 4. Coronary artery disease. 5. Hypertension. 6. Seizure disorder. PLAN: 1. Continue current medications. 2. Nutritional support. 3. DVT and stress ulcer prophylaxis. 4. Decubitus precautions. 5. Weekly CBC, CRP, and sedimentation rate. 6. is looking at long-term facilities. Continue therapy. Discussed with nursing. Job ID: [id number]
[2018-11-05] MEDS: Lidocaine Patch Removal 1 EACH TOP SCH (21:16)
[2018-11-06] MEDS: Ferrous Sulfate 325 MG TAB PO SCH ×2 (09:02→16:52)
[2018-11-06] MEDS: Famotidine 20 MG TAB PO SCH ×2 (09:02→09:19)
[2018-11-06] MEDS: levETIRAcetam 500 mg/5 ml Oral Solution PO SCH ×2 (09:02→21:20)
[2018-11-06] MEDS: Doxycycline 100 MG CAP PO SCH ×2 (09:03→21:20)
[2018-11-06] MEDS: Aspirin 81 mg Enteric Coated Tablet PO SCH (09:03)
[2018-11-06] MEDS: Apixaban 5 MG TAB PO SCH ×2 (09:03→21:19)
[2018-11-06] MEDS: Multivitamin W/ Minerals 1 TAB PO SCH (09:03)
[2018-11-06] MEDS: Lidocaine 5% Patch TD SCH (09:06)
[2018-11-06] MEDS: Lisinopril 10 MG TAB PO SCH ×2 (09:10→21:20)
[2018-11-06] MEDS: Atenolol 25 MG TAB PO SCH ×2 (09:10→21:19)
[2018-11-06] MEDS: Rifampin 300 MG CAP PO SCH ×2 (09:19→21:21)
--- NOTE | 2018-11-06 10:17 | PRG ---
DATE OF SERVICE: 11/06/2018 SUBJECTIVE: Mr. Salazar is doing well. Denies any complaints. Resting in his chair, sleepy, but arousable. He still has not eaten his breakfast. Gave parameters to his blood pressure medications to nursing. apparently is looking at long-term facilities. OBJECTIVE: VITAL SIGNS: He is afebrile, heart rate 74, respirations 18, oxygen saturation 96% on room air, blood pressure 127/59. CARDIOVASCULAR SYSTEM: S1 and S2 plus. RESPIRATORY SYSTEM: Normal vesicular breath sounds. ABDOMEN: Soft and nontender. Bowel sounds heard in all quadrants. EXTREMITIES: Without cyanosis or clubbing. CENTRAL NERVOUS SYSTEM: Awake and responsive. Cranial nerves 2 through 12 grossly intact. Generalized weakness. IMPRESSION: Recurrent methicillin-resistant Staphylococcus aureus infection of his right hip. PLAN: 1. Continue antibiotics. 2. Weekly CBC, CRP, CMP, and sedimentation rate. 3. Physical therapy. 4. Discharge planning. 5. DVT and stress ulcer prophylaxis. 6. Encourage p.o. intake. 7. No family at bedside. 8. Discussed with the patient and nursing in detail. All questions answered. Job ID: [id number]
[2018-11-06] MEDS: Lidocaine Patch Removal 1 EACH TOP SCH (21:20)
[2018-11-07 06:09] LABS: #Basophils 0.1 thou/uL (0.0-0.2); #Eosinphils 0.3 thou/uL (0.0-0.7); #Monocytes 0.5 thou/uL (0.11-0.59); #Neutrophils 2.6 thou/uL (1.40-6.50); %Basophils 1.6 % (0.0-1.0); %Lymphocytes 22.6 % (21.0-51.0); %Monocytes 11.6 % (0.0-10.0); %Neutrophils 58.2 % (42.0-75.0); Hemoglobin 12.5 g/dL (14.0-18.0); Mean Corpuscular HGB CONC 31.8 g/dL (32.0-36.0); Mean Corpuscular Hemoglobin 27.1 pg (27.0-31.0); Mean Corpuscular Volume 85.3 fL (78.0-98.0); Mean Platelet Volume 6.8 fL (7.4-10.4); Platelet Count 264 thou/uL (130-400); Red Blood Cell (RBC) Count 4.59 mill/uL (4.70-6.10); White Blood Cell (WBC) Count 4.5 thou/uL (4.8-10.8)
[2018-11-07 06:20] LABS: ALT (SGPT) 23 U/L (8-55); AST (SGOT) 22 U/L (5-34); Albumin 3.6 g/dL (3.4-4.8); Alkaline Phosphatase 104 U/L (40-150); Anion Gap 14 mmol/L (10-20); BUN (Urea Nitrogen) 28 mg/dL (8.4-25.7); Bilirubin, Total 0.4 mg/dL (0.2-1.2); CRP (Inflammatory) 3.71 mg/dL (= or < 0.5); Calc. Creatinine Clearance 54 mL/min (70-130); Calcium 10.1 mg/dL (7.8-10.44); Carbon Dioxide 27 mmol/L (23-31); Chloride 92 mmol/L (98-107); Estimated GFR-MDRD 82; Globulin 3.2 g/dL (2.4-3.5); Glucose 114 mg/dL (83-110); Potassium 4.3 mmol/L (3.5-5.1); Protein, Total 6.8 g/dL (5.8-8.1); Sodium 129 mmol/L (136-145)
[2018-11-07] MEDS: Ferrous Sulfate 325 MG TAB PO SCH ×2 (08:28→17:39)
[2018-11-07] MEDS: Doxycycline 100 MG CAP PO SCH (08:28)
[2018-11-07] MEDS: Atenolol 25 MG TAB PO SCH ×2 (08:28→20:00)
[2018-11-07] MEDS: Apixaban 5 MG TAB PO SCH (08:29)
[2018-11-07] MEDS: Famotidine 20 MG TAB PO SCH (08:29)
[2018-11-07] MEDS: Aspirin 81 mg Enteric Coated Tablet PO SCH (08:29)
[2018-11-07] MEDS: HYDROcodone/Acetaminophen 5/325 mg Tablet PO PRN (08:29)
[2018-11-07] MEDS: levETIRAcetam 500 mg/5 ml Oral Solution PO SCH ×2 (08:30→20:01)
[2018-11-07] MEDS: Lidocaine 5% Patch TD SCH (08:30)
[2018-11-07] MEDS: Lisinopril 10 MG TAB PO SCH ×2 (08:30→20:00)
[2018-11-07] MEDS: Multivitamin W/ Minerals 1 TAB PO SCH (08:30)
[2018-11-07] MEDS: Rifampin 300 MG CAP PO SCH (09:17)
--- NOTE | 2018-11-07 13:33 | PRG ---
DATE OF SERVICE: 11/07/2018 SUBJECTIVE: Mr. Salazar is more somnolent today. Discussed with therapy and they apparently discharged him due to lack of progress. Did his weekly CRP and sedimentation rate and both are elevated. No fevers. White count is normal, but I also reviewed his discharge med list. Again, he was supposed to be on IV antibiotics until November 22. For some reason, Dr. Norris when he was on-call switched him to oral antibiotics and I also did not ask him why, but plan is to get him back on his IV antibiotics for 4 more weeks. We will inform his . OBJECTIVE: VITAL SIGNS: He is afebrile. Heart rate 70, respirations 18, oxygen saturation 96% on room air, blood pressure 140/64. CARDIOVASCULAR: S1 and S2 plus. RESPIRATORY: Normal vesicular breath sounds. ABDOMEN: Soft, nontender. Bowel sounds heard in all quadrants. EXTREMITIES: Without cyanosis or clubbing. CENTRAL NERVOUS SYSTEM: Somnolent, but arousable. Pleasantly confused. Generalized weakness. In extremities, developing some early contractures to the right leg. LABORATORY VALUES: His white count is 4.5, hemoglobin and hematocrit are 12.5 and 39.2. Sodium 136, potassium 4.0, BUN and creatinine are 22 and 0.78. IMPRESSION: 1. 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 We will resume IV antibiotics. 2. Fluctuating cognitive status. 3. Atrial fibrillation. 4. Postherpetic neuralgia. 5. Hypertension. 6. Coronary artery disease. 7. History of CVA with right hemiparesis. PLAN: 1. Continue current medications, but discontinue doxycycline and rifampin, and start vancomycin IV 1 g q.12, pharmacy to adjust dosing, and cefepime 1 g IV q.12, end date to be December 08. 2. Continue nutritional support with heart healthy diet. 3. Monitor heart rate and rhythm. 4. DVT prophylaxis, he is on Eliquis. 5. Decubitus precautions. 6. Weekly CBC, CRP, CMP, and sedimentation rate. 7. We will call his and inform him of the change in plans on the antibiotic. Job ID: [id number]
[2018-11-07] MEDS ORDERED: Vancomycin HCl 1 GM in Sodium Chloride 0.9% 250 ML 250 ML IVPB SCH (14:00)
[2018-11-07] MEDS: Cefepime 1 GM in Sodium Chloride 0.9% 100 ML IVPB SCH (14:26)
[2018-11-07] MEDS: Lidocaine Patch Removal 1 EACH TOP SCH (20:01)
[2018-11-08] MEDS: Cefepime 1 GM in Sodium Chloride 0.9% 100 ML IVPB SCH ×2 (00:47→12:35)
[2018-11-08 03:38] LABS: Vancomycin, Trough 9.3 ug/mL
[2018-11-08] MEDS: Vancomycin HCl 1 GM in Sodium Chloride 0.9% 250 ML 250 ML IVPB SCH ×2 (04:09→18:21)
[2018-11-08] MEDS: Ferrous Sulfate 325 MG TAB PO SCH ×2 (08:55→18:24)
[2018-11-08] MEDS: levETIRAcetam 500 mg/5 ml Oral Solution PO SCH ×2 (08:59→20:39)
[2018-11-08] MEDS: HYDROcodone/Acetaminophen 5/325 mg Tablet PO PRN (09:01)
[2018-11-08] MEDS: Atenolol 25 MG TAB PO SCH ×2 (09:05→20:40)
[2018-11-08] MEDS: Famotidine 20 MG TAB PO SCH (09:06)
[2018-11-08] MEDS: Lidocaine 5% Patch TD SCH (09:07)
[2018-11-08] MEDS: Aspirin 81 mg Enteric Coated Tablet PO SCH (09:07)
[2018-11-08] MEDS: Multivitamin W/ Minerals 1 TAB PO SCH (09:07)
[2018-11-08] MEDS: Lisinopril 10 MG TAB PO SCH ×2 (09:07→20:40)
--- NOTE | 2018-11-08 13:14 | PRG ---
DATE OF SERVICE: 11/08/2018 SUBJECTIVE: Mr. Salazar is doing the same. He is scheduled to go get his PICC line today. Discussed with his about the plans on getting him back on at least 4 weeks of IV antibiotics. OBJECTIVE: VITAL SIGNS: He is afebrile, heart rate 71, respirations 20, oxygen saturation 96% on room air, and blood pressure 148/65. CARDIOVASCULAR SYSTEM: S1 and S2 plus. RESPIRATORY SYSTEM: Normal vesicular breath sounds heard in all lung morejon. ABDOMEN: Soft and nontender. Bowel sounds heard in all quadrants. EXTREMITIES: Without cyanosis or clubbing. Early contracture to the right leg. CENTRAL NERVOUS SYSTEM: Awake, but confused. Generalized weakness. IMPRESSION: 1. Methicillin-resistant Staphylococcus aureus infection of the right hip, status post removal and replacement of hardware. The confusion on his antibiotic regimen occurred because Dr. Norris over the weekend, when he was on-call, reviewed Dr. López' notes, the infectious disease physician, but unfortunately those notes were when he was at the hospital here in [place] and not when he was in [place]. The dates coincided in such a way that the antibiotics were switched to oral, but I have gotten him back on his IV antibiotics. 2. Atrial fibrillation. 3. History of cerebrovascular accident with improving right hemiparesis. 4. Postherpetic neuralgia. 5. Hypertension. 6. Coronary artery disease. 7. Fluctuating cognitive status. PLAN: 1. Continue current medications including vancomycin and cefepime, end date December 08. 2. PICC line today. 3. Nutritional support. 4. DVT and stress ulcer prophylaxis. 5. Decubitus precautions. 6. Eliquis held since yesterday evening. Okay to restart it from tomorrow; I informed Fide, the nurse. 7. Weekly CBC, CRP, CMP, and sedimentation rate. 8. Discussed with the patient and in detail. All questions answered. Job ID: [id number]
[2018-11-08] MEDS: Lidocaine Patch Removal 1 EACH TOP SCH (20:40)
[2018-11-09] MEDS: Cefepime 1 GM in Sodium Chloride 0.9% 100 ML IVPB SCH ×2 (00:28→13:45)
[2018-11-09] MEDS: Vancomycin HCl 1 GM in Sodium Chloride 0.9% 250 ML 250 ML IVPB SCH ×2 (03:37→16:56)
[2018-11-09] MEDS: Ferrous Sulfate 325 MG TAB PO SCH ×2 (08:53→16:58)
[2018-11-09] MEDS: levETIRAcetam 500 mg/5 ml Oral Solution PO SCH ×2 (09:00→20:57)
[2018-11-09] MEDS: Lidocaine 5% Patch TD SCH (09:01)
[2018-11-09] MEDS: Multivitamin W/ Minerals 1 TAB PO SCH (09:01)
[2018-11-09] MEDS: Aspirin 81 mg Enteric Coated Tablet PO SCH (09:02)
[2018-11-09] MEDS: Apixaban 5 MG TAB PO SCH ×2 (09:02→20:57)
[2018-11-09] MEDS: Famotidine 20 MG TAB PO SCH (09:03)
[2018-11-09] MEDS: HYDROcodone/Acetaminophen 5/325 mg Tablet PO PRN (09:03)
[2018-11-09] MEDS: Lisinopril 10 MG TAB PO SCH ×2 (09:05→20:58)
[2018-11-09] MEDS: Atenolol 25 MG TAB PO SCH ×2 (09:05→20:57)
[2018-11-09] MEDS: Lidocaine Patch Removal 1 EACH TOP SCH (20:58)
[2018-11-10] MEDS: Cefepime 1 GM in Sodium Chloride 0.9% 100 ML IVPB SCH ×2 (00:57→12:44)
[2018-11-10] MEDS: Vancomycin HCl 1 GM in Sodium Chloride 0.9% 250 ML 250 ML IVPB SCH ×2 (03:59→16:01)
[2018-11-10] MEDS: levETIRAcetam 500 mg/5 ml Oral Solution PO SCH ×2 (08:16→21:14)
[2018-11-10] MEDS: Famotidine 20 MG TAB PO SCH (08:16)
[2018-11-10] MEDS: Ferrous Sulfate 325 MG TAB PO SCH ×2 (08:16→16:01)
[2018-11-10] MEDS: Multivitamin W/ Minerals 1 TAB PO SCH (08:17)
[2018-11-10] MEDS: Atenolol 25 MG TAB PO SCH ×2 (08:17→21:15)
[2018-11-10] MEDS: Lisinopril 10 MG TAB PO SCH ×2 (08:17→21:15)
[2018-11-10] MEDS: Aspirin 81 mg Enteric Coated Tablet PO SCH (08:17)
[2018-11-10] MEDS: Apixaban 5 MG TAB PO SCH ×2 (08:17→21:15)
[2018-11-10] MEDS: Lidocaine 5% Patch TD SCH (08:19)
[2018-11-10] MEDS: HYDROcodone/Acetaminophen 5/325 mg Tablet PO PRN (21:15)
[2018-11-10] MEDS: Lidocaine Patch Removal 1 EACH TOP SCH (21:21)
[2018-11-11] MEDS: Cefepime 1 GM in Sodium Chloride 0.9% 100 ML IVPB SCH ×2 (01:07→13:15)
[2018-11-11] MEDS: Vancomycin HCl 1 GM in Sodium Chloride 0.9% 250 ML 250 ML IVPB SCH ×2 (03:58→16:08)
[2018-11-11] MEDS: levETIRAcetam 500 mg/5 ml Oral Solution PO SCH ×2 (07:48→20:54)
[2018-11-11] MEDS: Aspirin 81 mg Enteric Coated Tablet PO SCH (07:49)
[2018-11-11] MEDS: Lisinopril 10 MG TAB PO SCH ×2 (07:49→20:54)
[2018-11-11] MEDS: Ferrous Sulfate 325 MG TAB PO SCH ×2 (07:49→16:09)
[2018-11-11] MEDS: Apixaban 5 MG TAB PO SCH ×2 (07:49→20:54)
[2018-11-11] MEDS: Multivitamin W/ Minerals 1 TAB PO SCH (07:49)
[2018-11-11] MEDS: Famotidine 20 MG TAB PO SCH (07:49)
[2018-11-11] MEDS: Lidocaine 5% Patch TD SCH (07:50)
[2018-11-11] MEDS: Atenolol 25 MG TAB PO SCH ×2 (07:50→20:54)
--- NOTE | 2018-11-11 20:50 | PRG ---
DATE OF SERVICE: 11/11/2018 SUBJECTIVE: The patient feels the same, up in bed. Has eaten, is holding his head and not responding to questions verbally, but appears to be in no respiratory distress. OBJECTIVE: VITAL SIGNS: Show blood pressure is 189/81, pulse 79, temperature is 98.8, respirations 20, O2 sats 96% on room air. LUNGS: Clear. CARDIAC: Shows irregular rhythm. ABDOMEN: Soft and nontender with no masses or organomegaly. SKIN/EXTREMITIES: Display flexion contracture of the right hip and knee. ASSESSMENT: 1. Postherpetic neuralgia; persistent cognitive deficits; persistent methicillin-resistant Staphylococcus aureus infection of right total hip, status post removal, on IV vancomycin and cefepime until December 04. 2. Severe deconditioning. 3. Atrial fibrillation with rate control and anticoagulation. Job ID: [id number]
[2018-11-11] MEDS: HYDROcodone/Acetaminophen 5/325 mg Tablet PO PRN (20:54)
--- NOTE | 2018-11-11 21:09 | PRG ---
DATE OF SERVICE: 11/10/2018 SUBJECTIVE: The patient feels well. No complaints, but minimally responding to questions. Appears to be not changed much clinically from previous week. He has been restarted back on IV antibiotics because of increased CRP and confusion about end date of his antibiotics. OBJECTIVE: VITAL SIGNS: Show his temperature is 98.8, pulse 79, respirations 20, O2 sats 96% on room air, blood pressure is 125/58. LUNGS: Clear. CARDIAC: Shows regular rhythm. ABDOMEN: Soft and nontender. EXTREMITIES: Right leg is bandaged with tenderness to palpation of the right hip and contracture of the right leg. NEUROLOGIC: Shows the patient is weak, awake, but minimally responsive and confused. ASSESSMENT: 1. Persistent methicillin-resistant Staphylococcus aureus infection of the right hip, status post removal and replacement of the hardware, now being replaced back on IV vancomycin and cefepime until December 08. 2. Atrial fibrillation with rate control and anticoagulation. 3. Hypertension, controlled to goal. 4. Postherpetic neuralgia, severe. 5. Cerebrovascular accident with improving right hemiparesis. 6. Persistent cognitive deficits. PLAN: 1. Restart IV vancomycin and meropenem until December 04. 2. Continue rate control and anticoagulation of atrial fibrillation. 3. Continue to monitor blood pressure and vital signs. 4. Continue stress ulcer prophylaxis. Job ID: [id number]
[2018-11-11] MEDS: Lidocaine Patch Removal 1 EACH TOP SCH (22:48)
[2018-11-12] MEDS: Cefepime 1 GM in Sodium Chloride 0.9% 100 ML IVPB SCH ×2 (00:59→13:35)
[2018-11-12] MEDS: Vancomycin HCl 1 GM in Sodium Chloride 0.9% 250 ML 250 ML IVPB SCH ×2 (04:22→16:45)
[2018-11-12] MEDS: Lidocaine 5% Patch TD SCH (08:49)
[2018-11-12] MEDS: Ferrous Sulfate 325 MG TAB PO SCH ×2 (08:49→17:31)
[2018-11-12] MEDS: Multivitamin W/ Minerals 1 TAB PO SCH (08:49)
[2018-11-12] MEDS: Aspirin 81 mg Enteric Coated Tablet PO SCH (08:50)
[2018-11-12] MEDS: Apixaban 5 MG TAB PO SCH ×2 (08:50→20:55)
[2018-11-12] MEDS: Famotidine 20 MG TAB PO SCH (08:50)
[2018-11-12] MEDS: levETIRAcetam 500 mg/5 ml Oral Solution PO SCH ×2 (08:50→20:54)
[2018-11-12] MEDS: Atenolol 25 MG TAB PO SCH ×2 (08:51→20:56)
[2018-11-12] MEDS: Lisinopril 10 MG TAB PO SCH ×2 (08:51→20:55)
--- NOTE | 2018-11-12 13:45 | PRG ---
DATE OF SERVICE: 11/12/2018 SUBJECTIVE: Mr. Salazar is more awake and alert today. His spouse is in the room. He is tolerating his antibiotics. He apparently ate a good lunch. Discussed with Nursing and no concerns. OBJECTIVE: VITAL SIGNS: He is afebrile, heart rate is 77, respirations 20, oxygen saturation 97% on room air, blood pressure 136/61. CARDIOVASCULAR SYSTEM: S1-S2 plus. RESPIRATORY SYSTEM: Normal vesicular breath sounds. ABDOMEN: Soft and nontender. Bowel sounds heard in all quadrants. EXTREMITIES: Without cyanosis or clubbing. Peripheral pulses are palpable. CENTRAL NERVOUS SYSTEM: Awake and responsive. Pleasantly confused. Generalized weakness. IMPRESSION: 1. MRSA infection of his right hip, requiring removal and replacement of hardware. 2. Atrial fibrillation. 3. Coronary artery disease. 4. Postherpetic neuralgia. 5. History of cerebrovascular accident. 6. Cognitive impairment. 7. Seizure disorder. PLAN: 1. Continue IV antibiotics until December 08. 2. Start Florastor. 3. Nutritional support. 4. DVT and stress ulcer prophylaxis. He is on Eliquis. 5. Seizure precautions. 6. Therapy. 7. Routine laboratory values. 8. Orthopedic precautions. 9. Recheck CBC, CRP, CMP, and sedimentation rate on . Discussed with the patient and Nursing in detail as well as his and all questions answered. Job ID: [id number]
[2018-11-12 15:33] LABS: Vancomycin, Trough 18.8 ug/mL
[2018-11-12] MEDS: Saccharomyces boulardii 250 MG CAP PO SCH (20:55)
[2018-11-12] MEDS: Lidocaine Patch Removal 1 EACH TOP SCH (20:56)
[2018-11-13] MEDS: Cefepime 1 GM in Sodium Chloride 0.9% 100 ML IVPB SCH ×2 (01:12→13:08)
[2018-11-13] MEDS: Vancomycin HCl 1 GM in Sodium Chloride 0.9% 250 ML 250 ML IVPB SCH ×2 (04:04→16:16)
[2018-11-13] MEDS: Lidocaine 5% Patch TD SCH (08:21)
[2018-11-13] MEDS: levETIRAcetam 500 mg/5 ml Oral Solution PO SCH ×2 (08:21→20:59)
[2018-11-13] MEDS: Atenolol 25 MG TAB PO SCH ×2 (08:22→20:59)
[2018-11-13] MEDS: Ferrous Sulfate 325 MG TAB PO SCH ×2 (08:22→16:30)
[2018-11-13] MEDS: Saccharomyces boulardii 250 MG CAP PO SCH ×2 (08:22→20:59)
[2018-11-13] MEDS: Famotidine 20 MG TAB PO SCH (08:27)
[2018-11-13] MEDS: Lisinopril 10 MG TAB PO SCH ×2 (08:28→20:59)
[2018-11-13] MEDS: Aspirin 81 mg Enteric Coated Tablet PO SCH (08:28)
[2018-11-13] MEDS: Apixaban 5 MG TAB PO SCH (08:28)
[2018-11-13] MEDS: Multivitamin W/ Minerals 1 TAB PO SCH (08:28)
--- NOTE | 2018-11-13 13:13 | PRG ---
DATE OF SERVICE: 11/13/2018 SUBJECTIVE: Mr. Salazar is doing the same. He is up in his [place] chair and eating his lunch with assistance. His spouse is in the room. No concerns or questions. OBJECTIVE: VITAL SIGNS: He is afebrile, heart rate 68, respirations 20, oxygen saturation 98% on room air, and blood pressure 121/59. CARDIOVASCULAR SYSTEM: S1 and S2 plus. RESPIRATORY SYSTEM: Normal vesicular breath sounds. ABDOMEN: Soft and nontender. Bowel sounds heard in all quadrants. EXTREMITIES: Without cyanosis or clubbing. Peripheral pulses are palpable. CENTRAL NERVOUS SYSTEM: Awake and responsive, pleasantly confused. IMPRESSION: 1. Right hip methicillin-resistant Staphylococcus aureus infection requiring removal and replacement of hardware. 2. Atrial fibrillation. 3. Coronary artery disease. 4. Postherpetic neuralgia. 5. History of cerebrovascular accident. 6. Cognitive impairment. PLAN: 1. Continue current medications. 2. Continue IV antibiotics until December 08. 3. Recheck CBC, CRP, CMP, and sedimentation rate tomorrow. 4. DVT prophylaxis. He is already on Eliquis. 5. Seizure disorder. We will continue seizure precautions. 6. Nutritional support. 7. Orthopedic precautions. 8. Therapy as tolerated. 9. Discussed with the patient and spouse in detail. All questions answered. Job ID: [id number]
[2018-11-13] MEDS: Apixaban 2.5 MG TAB PO SCH (20:59)
[2018-11-13] MEDS: Lidocaine Patch Removal 1 EACH TOP SCH (21:00)
[2018-11-14] MEDS: Cefepime 1 GM in Sodium Chloride 0.9% 100 ML IVPB SCH ×2 (01:00→12:09)
[2018-11-14] MEDS: Vancomycin HCl 1 GM in Sodium Chloride 0.9% 250 ML 250 ML IVPB SCH ×2 (04:19→16:28)
[2018-11-14] MEDS: Saccharomyces boulardii 250 MG CAP PO SCH ×2 (08:34→21:43)
[2018-11-14] MEDS: Lidocaine 5% Patch TD SCH (08:34)
[2018-11-14] MEDS: levETIRAcetam 500 mg/5 ml Oral Solution PO SCH ×2 (08:34→21:42)
[2018-11-14] MEDS: Atenolol 25 MG TAB PO SCH ×2 (08:34→21:43)
[2018-11-14] MEDS: Lisinopril 10 MG TAB PO SCH ×2 (08:34→21:43)
[2018-11-14] MEDS: Aspirin 81 mg Enteric Coated Tablet PO SCH (08:35)
[2018-11-14] MEDS: Apixaban 2.5 MG TAB PO SCH ×2 (08:35→21:43)
[2018-11-14] MEDS: Famotidine 20 MG TAB PO SCH (08:35)
[2018-11-14] MEDS: Multivitamin W/ Minerals 1 TAB PO SCH (08:35)
[2018-11-14] MEDS: Ferrous Sulfate 325 MG TAB PO SCH ×2 (08:35→16:29)
--- NOTE | 2018-11-14 12:58 | PRG ---
DATE OF SERVICE: 11/14/2018 SUBJECTIVE: Mr. Salazar is doing the same. Denies any complaints. Tolerating his antibiotics. OBJECTIVE: VITAL SIGNS: He is afebrile. Heart rate is 66, respirations are 16, oxygen saturation is 99%, and blood pressure this morning was 173/76. I advised nursing to recheck it. This was probably before his blood pressure medications. CARDIOVASCULAR SYSTEM: S1 and S2 plus. RESPIRATORY SYSTEM: Normal vesicular breath sounds. ABDOMEN: Soft and nontender. Bowel sounds heard in all quadrants. EXTREMITIES: Without cyanosis or clubbing. CENTRAL NERVOUS SYSTEM: Awake, but confused. Generalized weakness. IMPRESSION: 1. Methicillin-resistant Staphylococcus aureus infection, right hip, status post removal and replacement of hardware. 2. Atrial fibrillation. 3. Coronary artery disease. 4. Seizure disorder. 5. Postherpetic neuralgia. 6. History of cerebrovascular accident. 7. Cognitive deficits. 8. Deconditioning. PLAN: 1. Continue IV antibiotics. 2. Recheck CBC, CMP, CRP, and sed rate in the morning. 3. Nutritional support. 4. Orthopedic precautions. 5. DVT and stress ulcer prophylaxis. 6. Decubitus precaution. 7. Discussed with the patient and spouse in detail. All questions answered. Job ID: [id number]
[2018-11-14 15:16] LABS: Vancomycin, Trough 20.9 ug/mL
[2018-11-14] MEDS: Lidocaine Patch Removal 1 EACH TOP SCH (21:43)
[2018-11-15] MEDS: Cefepime 1 GM in Sodium Chloride 0.9% 100 ML IVPB SCH ×2 (01:43→12:23)
[2018-11-15] MEDS: Vancomycin HCl 1 GM in Sodium Chloride 0.9% 250 ML 250 ML IVPB SCH ×2 (04:05→16:10)
[2018-11-15 05:47] LABS: #Basophils 0.1 thou/uL (0.0-0.2); #Eosinphils 0.4 thou/uL (0.0-0.7); #Monocytes 0.5 thou/uL (0.11-0.59); #Neutrophils 2.4 thou/uL (1.40-6.50); %Basophils 1.4 % (0.0-1.0); %Eosinophils 8.9 % (0.0-10.0); %Lymphocytes 22.7 % (21.0-51.0); %Monocytes 10.8 % (0.0-10.0); %Neutrophils 56.2 % (42.0-75.0); Hemoglobin 10.7 g/dL (14.0-18.0); Mean Corpuscular HGB CONC 32.8 g/dL (32.0-36.0); Mean Corpuscular Hemoglobin 27.6 pg (27.0-31.0); Mean Corpuscular Volume 84.2 fL (78.0-98.0); Mean Platelet Volume 6.8 fL (7.4-10.4); Platelet Count 187 thou/uL (130-400); RBC Distribution Width 12.6 % (11.5-14.5); Red Blood Cell (RBC) Count 3.88 mill/uL (4.70-6.10); White Blood Cell (WBC) Count 4.3 thou/uL (4.8-10.8)
[2018-11-15 06:15] LABS: ALT (SGPT) 14 U/L (8-55); AST (SGOT) 13 U/L (5-34); Albumin 3.2 g/dL (3.4-4.8); Alkaline Phosphatase 83 U/L (40-150); Anion Gap 12 mmol/L (10-20); BUN (Urea Nitrogen) 13 mg/dL (8.4-25.7); Bilirubin, Total 0.3 mg/dL (0.2-1.2); CRP (Inflammatory) 1.43 mg/dL (= or < 0.5); Calc. Creatinine Clearance 71 mL/min (70-130); Calcium 9.5 mg/dL (7.8-10.44); Carbon Dioxide 30 mmol/L (23-31); Chloride 97 mmol/L (98-107); Estimated GFR-MDRD Greater than 90; Globulin 2.7 g/dL (2.4-3.5); Glucose 107 mg/dL (83-110); Potassium 3.9 mmol/L (3.5-5.1); Protein, Total 5.9 g/dL (5.8-8.1); Sodium 135 mmol/L (136-145)
[2018-11-15] MEDS: levETIRAcetam 500 mg/5 ml Oral Solution PO SCH ×2 (08:28→21:29)
[2018-11-15] MEDS: Lidocaine 5% Patch TD SCH (08:28)
[2018-11-15] MEDS: Multivitamin W/ Minerals 1 TAB PO SCH (08:29)
[2018-11-15] MEDS: Ferrous Sulfate 325 MG TAB PO SCH ×2 (08:29→17:28)
[2018-11-15] MEDS: Atenolol 25 MG TAB PO SCH ×2 (08:29→21:29)
[2018-11-15] MEDS: Famotidine 20 MG TAB PO SCH (08:29)
[2018-11-15] MEDS: Aspirin 81 mg Enteric Coated Tablet PO SCH (08:29)
[2018-11-15] MEDS: Saccharomyces boulardii 250 MG CAP PO SCH ×2 (08:29→21:29)
[2018-11-15] MEDS: Apixaban 2.5 MG TAB PO SCH ×2 (08:29→21:29)
[2018-11-15] MEDS: Lisinopril 10 MG TAB PO SCH ×2 (08:34→21:29)
--- NOTE | 2018-11-15 13:29 | PRG ---
DATE OF SERVICE: 11/15/2018 SUBJECTIVE: Mr. Salazar is up in bed and eating his lunch with minimal assistance. His spouse is in the room. Denies any questions or concerns. OBJECTIVE: VITAL SIGNS: He is afebrile, heart rate 67, respirations 20, oxygen saturation 100% on room air, blood pressure 139/70. CARDIOVASCULAR: S1 and S2 plus. RESPIRATORY: Normal vesicular breath sounds. ABDOMEN: Soft and nontender. Bowel sounds heard in all quadrants. EXTREMITIES: Without cyanosis or clubbing. CENTRAL NERVOUS SYSTEM: Awake and responsive. Generalized weakness. Pleasantly confused. LABORATORY VALUES: White count is 4.3, H and H are 10.7 and 32.5 with a sedimentation rate down to 15. Chemistry shows a sodium of 135, potassium 3.9, BUN and creatinine are 13 and 0.68, and his CRP is down to 1.43 from 3.71. IMPRESSION: 1. Methicillin-resistant Staphylococcus aureus infection to hip, requiring removal and replacement of hardware. 2. Coronary artery disease. 3. Atrial fibrillation. 4. Postherpetic neuralgia. 5. Seizure disorder. 6. History of cerebrovascular accident. PLAN: 1. Continue current medications. 2. Nutritional support. 3. DVT and stress ulcer prophylaxis. 4. Decubitus precautions. 5. Continue IV antibiotics till December 08. 6. PT/OT if qualifies. 7. Discussed with the patient and nursing in detail. All questions were answered. Job ID: [id number]
[2018-11-15] MEDS: Lidocaine Patch Removal 1 EACH TOP SCH (21:30)
[2018-11-16] MEDS: Cefepime 1 GM in Sodium Chloride 0.9% 100 ML IVPB SCH ×2 (01:39→12:51)
[2018-11-16] MEDS: Vancomycin HCl 1 GM in Sodium Chloride 0.9% 250 ML 250 ML IVPB SCH ×2 (04:44→16:15)
[2018-11-16] MEDS: Aspirin 81 mg Enteric Coated Tablet PO SCH (08:17)
[2018-11-16] MEDS: Multivitamin W/ Minerals 1 TAB PO SCH (08:17)
[2018-11-16] MEDS: levETIRAcetam 500 mg/5 ml Oral Solution PO SCH ×2 (08:18→21:26)
[2018-11-16] MEDS: Ferrous Sulfate 325 MG TAB PO SCH ×2 (08:18→17:27)
[2018-11-16] MEDS: Famotidine 20 MG TAB PO SCH (08:18)
[2018-11-16] MEDS: Atenolol 25 MG TAB PO SCH ×2 (08:19→21:28)
[2018-11-16] MEDS: Saccharomyces boulardii 250 MG CAP PO SCH ×2 (08:19→21:28)
[2018-11-16] MEDS: Lisinopril 10 MG TAB PO SCH ×2 (08:19→21:28)
[2018-11-16] MEDS: Apixaban 2.5 MG TAB PO SCH ×2 (08:19→21:28)
[2018-11-16] MEDS: Lidocaine 5% Patch TD SCH (08:20)
--- NOTE | 2018-11-16 11:30 | PRG ---
DATE OF SERVICE: 11/16/2018 SUBJECTIVE: Mr. Salazar is doing the same. Denies any complaints. Resting comfortably. His spouse is not in the room. OBJECTIVE: VITAL SIGNS: He is afebrile, heart rate 70, respirations 20, oxygen saturation 98% on room air, blood pressure 136/90. CARDIOVASCULAR SYSTEM: S1 and S2 plus. RESPIRATORY SYSTEM: Normal vesicular breath sounds. ABDOMEN: Soft and nontender. Bowel sounds heard in all quadrants. EXTREMITIES: Without cyanosis or clubbing. CENTRAL NERVOUS SYSTEM: Awake and responsive, and pleasantly confused. IMPRESSION: 1. Methicillin-resistant Staphylococcus aureus infection to right hip, requiring removal and replacement of hardware. 2. Atrial fibrillation. 3. Coronary artery disease. 4. Seizure disorder. 5. Postherpetic neuralgia, much improved. 6. History of cerebrovascular accident with improving deficits. PLAN: 1. Continue IV antibiotics until December 08. 2. Nutritional support with heart healthy diet. 3. Aspiration precautions. 4. Seizure precautions. 5. DVT prophylaxis - the patient is on Eliquis. 6. Decubitus precautions. 7. Weekly CBC, CMP, CRP, and sedimentation rate. Job ID: [id number]
[2018-11-16 15:58] LABS: Vancomycin, Trough 21.9 ug/mL
[2018-11-16] MEDS: Lidocaine Patch Removal 1 EACH TOP SCH (21:29)
[2018-11-17] MEDS: Cefepime 1 GM in Sodium Chloride 0.9% 100 ML IVPB SCH ×2 (00:42→12:20)
[2018-11-17] MEDS: Vancomycin HCl 1 GM in Sodium Chloride 0.9% 250 ML 250 ML IVPB SCH ×2 (03:46→16:22)
[2018-11-17] MEDS: levETIRAcetam 500 mg/5 ml Oral Solution PO SCH ×2 (08:39→21:22)
[2018-11-17] MEDS: Lidocaine 5% Patch TD SCH (08:39)
[2018-11-17] MEDS: Lisinopril 10 MG TAB PO SCH ×2 (08:41→21:19)
[2018-11-17] MEDS: Multivitamin W/ Minerals 1 TAB PO SCH (08:41)
[2018-11-17] MEDS: Atenolol 25 MG TAB PO SCH ×2 (08:41→21:18)
[2018-11-17] MEDS: Ferrous Sulfate 325 MG TAB PO SCH ×2 (08:41→16:23)
[2018-11-17] MEDS: Aspirin 81 mg Enteric Coated Tablet PO SCH (08:42)
[2018-11-17] MEDS: Famotidine 20 MG TAB PO SCH (08:42)
[2018-11-17] MEDS: Apixaban 2.5 MG TAB PO SCH ×2 (08:42→21:19)
[2018-11-17] MEDS: Saccharomyces boulardii 250 MG CAP PO SCH ×2 (08:42→21:18)
--- NOTE | 2018-11-17 16:20 | PRG ---
DATE OF SERVICE: 11/17/2018 SUBJECTIVE: Mr. Salazar is doing well. He is dozing after lunch. He is arousable. Discussed with nursing and no concerns. No family at bedside. OBJECTIVE: VITAL SIGNS: He is afebrile. Heart rate is 84, respirations 20, oxygen saturation 98% on room air, blood pressure was 189/88 and it has not been rechecked. I advised nursing to recheck it again and to call me if it is more than 140/90. CARDIOVASCULAR: S1 and S2 plus. RESPIRATORY: Normal vesicular breath sounds. ABDOMEN: Soft and nontender. Bowel sounds heard in all quadrants. EXTREMITIES: Without cyanosis or clubbing. CENTRAL NERVOUS SYSTEM: Awake and responsive, pleasantly confused. IMPRESSION: 1. Methicillin-resistant Staphylococcus aureus infection to right hip, requiring removal and replacement of hardware. 2. Coronary artery disease. 3. Atrial fibrillation. 4. Seizure disorder. 5. History of cerebrovascular accident. 6. Postherpetic neuralgia. 7. Deconditioning. 8. Hypertension. PLAN: 1. Continue current medications. 2. Heart-healthy diet. 3. Monitor blood pressure and adjust medications as needed. 4. Weekly CBC, CRP, CMP, and sedimentation rate. 5. Continue antibiotics until December 08. 6. DVT prophylaxis-he is on Eliquis. 7. Seizure precautions. 8. Decubitus precautions. 9. Discussed with the patient and nursing in detail. All questions answered. Job ID: [id number]
[2018-11-17 19:02] LABS: #Basophils 0.1 thou/uL (0.0-0.2); #Eosinphils 0.3 thou/uL (0.0-0.7); #Monocytes 0.6 thou/uL (0.11-0.59); #Neutrophils 3.9 thou/uL (1.40-6.50); %Basophils 1.2 % (0.0-1.0); %Eosinophils 4.5 % (0.0-10.0); %Lymphocytes 17.5 % (21.0-51.0); %Monocytes 9.7 % (0.0-10.0); %Neutrophils 67.2 % (42.0-75.0); Hemoglobin 11.1 g/dL (14.0-18.0); Mean Corpuscular HGB CONC 32.8 g/dL (32.0-36.0); Mean Corpuscular Hemoglobin 27.5 pg (27.0-31.0); Mean Corpuscular Volume 83.9 fL (78.0-98.0); Mean Platelet Volume 6.5 fL (7.4-10.4); Platelet Count 193 thou/uL (130-400); Red Blood Cell (RBC) Count 4.03 mill/uL (4.70-6.10); White Blood Cell (WBC) Count 5.8 thou/uL (4.8-10.8)
[2018-11-17] MEDS: Acetaminophen 325 MG TAB PO PRN (19:02)
--- NOTE | 2018-11-17 19:07 | RAD ---
Chest one view HISTORY: Fever. Weakness. COMPARISON: 10/26/2018. FINDINGS: Cardiac silhouette is magnified by projection. Pulmonary vasculature upper limits of normal . Mediastinum is midline with postoperative changes and a left upper extremity PICC. No lobar consolidation or evidence of pneumothorax. IMPRESSION: Stable radiographic appearance of the chest. No active cardiopulmonary abnormalities are demonstrated.
[2018-11-17] MEDS: Lidocaine Patch Removal 1 EACH TOP SCH (21:22)
[2018-11-18] MEDS: Cefepime 1 GM in Sodium Chloride 0.9% 100 ML IVPB SCH ×2 (01:30→12:07)
[2018-11-18] MEDS: Vancomycin HCl 1 GM in Sodium Chloride 0.9% 250 ML 250 ML IVPB SCH ×2 (04:23→16:09)
[2018-11-18] MEDS: Ferrous Sulfate 325 MG TAB PO SCH ×2 (08:39→16:11)
[2018-11-18] MEDS: Famotidine 20 MG TAB PO SCH (09:05)
[2018-11-18] MEDS: Multivitamin W/ Minerals 1 TAB PO SCH (09:06)
[2018-11-18] MEDS: Aspirin 81 mg Enteric Coated Tablet PO SCH (09:07)
[2018-11-18] MEDS: Lisinopril 10 MG TAB PO SCH ×2 (09:07→21:28)
[2018-11-18] MEDS: Atenolol 25 MG TAB PO SCH ×2 (09:08→21:29)
[2018-11-18] MEDS: Apixaban 2.5 MG TAB PO SCH ×2 (09:08→21:29)
[2018-11-18] MEDS: Saccharomyces boulardii 250 MG CAP PO SCH ×2 (09:09→21:29)
[2018-11-18] MEDS: levETIRAcetam 500 mg/5 ml Oral Solution PO SCH ×2 (09:10→21:28)
[2018-11-18] MEDS: Lidocaine 5% Patch TD SCH (09:28)
[2018-11-18] MEDS: Lidocaine Patch Removal 1 EACH TOP SCH (21:29)
[2018-11-19] MEDS: Cefepime 1 GM in Sodium Chloride 0.9% 100 ML IVPB SCH ×2 (01:43→12:33)
[2018-11-19] MEDS: Vancomycin HCl 1 GM in Sodium Chloride 0.9% 250 ML 250 ML IVPB SCH ×2 (04:31→16:07)
[2018-11-19] MEDS: Lidocaine 5% Patch TD SCH (08:18)
[2018-11-19] MEDS: levETIRAcetam 500 mg/5 ml Oral Solution PO SCH ×2 (08:19→21:19)
[2018-11-19] MEDS: Famotidine 20 MG TAB PO SCH (08:19)
[2018-11-19] MEDS: Ferrous Sulfate 325 MG TAB PO SCH ×2 (08:20→17:49)
[2018-11-19] MEDS: Aspirin 81 mg Enteric Coated Tablet PO SCH (08:21)
[2018-11-19] MEDS: Atenolol 25 MG TAB PO SCH ×2 (08:21→21:20)
[2018-11-19] MEDS: Saccharomyces boulardii 250 MG CAP PO SCH ×2 (08:22→21:20)
[2018-11-19] MEDS: Multivitamin W/ Minerals 1 TAB PO SCH (08:23)
[2018-11-19] MEDS: Lisinopril 10 MG TAB PO SCH ×2 (08:23→21:21)
[2018-11-19] MEDS ORDERED: Apixaban 2.5 MG TAB PO SCH ×3 (09:45→21:00)
[2018-11-19] MEDS ORDERED: Apixaban 5 MG TAB PO SCH (10:30)
[2018-11-19] MEDS: Apixaban 2.5 MG TAB PO SCH ×2 (10:30→21:36)
[2018-11-19] MEDS ORDERED: Lisinopril 10 MG TAB PO SCH (13:45)
--- NOTE | 2018-11-19 14:02 | PRG ---
DATE OF SERVICE: 11/19/2018 SUBJECTIVE: Mr. Salazar looks like he is in pain and he is not opening his eyes. His spouse is in the room. He apparently ate a good bit of his lunch and all of his cake. He had an episode of fever the day before yesterday, but none since then. Chest x-ray is negative. Cultures are pending. No further fever since then. OBJECTIVE: VITAL SIGNS: He is afebrile. Heart rate is 68, respirations 18, oxygen saturation is not documented yet. CARDIOVASCULAR SYSTEM: S1 and S2 plus. RESPIRATORY SYSTEM: Normal vesicular breath sounds. ABDOMEN: Soft and nontender. Bowel sounds heard in all quadrants. EXTREMITIES: Without cyanosis or clubbing. CENTRAL NERVOUS SYSTEM: Awake and responsive. Pleasantly confused. Generalized weakness. IMPRESSION: 1. Hypertension, not well controlled. 2. Atrial fibrillation. 3. Coronary artery disease. 4. Methicillin-resistant Staphylococcus aureus infection to right hip. 5. Postherpetic neuralgia. 6. Seizure disorder. 7. History of cerebrovascular accident. PLAN: 1. Increase lisinopril to 20 b.i.d. 2. Continue IV antibiotics. 3. Await cultures. 4. DVT prophylaxis. He is on Eliquis. 5. Decubitus precautions. 6. Stress ulcer prophylaxis. Continue Lidoderm patch as needed. 7. Encourage p.o. intake. 8. Routine laboratory values. 9. Discussed with the patient and spouse in detail. All questions answered. Job ID: [id number]
[2018-11-19] MEDS: Acetaminophen 325 MG TAB PO PRN (21:21)
[2018-11-19] MEDS: Lidocaine Patch Removal 1 EACH TOP SCH (21:22)
[2018-11-20] MEDS: Cefepime 1 GM in Sodium Chloride 0.9% 100 ML IVPB SCH ×2 (01:11→12:42)
[2018-11-20] MEDS: Vancomycin HCl 1 GM in Sodium Chloride 0.9% 250 ML 250 ML IVPB SCH ×2 (03:50→16:25)
[2018-11-20] MEDS: Ferrous Sulfate 325 MG TAB PO SCH ×2 (08:06→17:46)
[2018-11-20] MEDS: Lidocaine 5% Patch TD SCH (08:06)
[2018-11-20] MEDS: Saccharomyces boulardii 250 MG CAP PO SCH ×2 (08:07→21:35)
[2018-11-20] MEDS: Multivitamin W/ Minerals 1 TAB PO SCH (08:07)
[2018-11-20] MEDS: Famotidine 20 MG TAB PO SCH (08:08)
[2018-11-20] MEDS: Aspirin 81 mg Enteric Coated Tablet PO SCH (08:08)
[2018-11-20] MEDS: Apixaban 2.5 MG TAB PO SCH ×2 (08:09→21:36)
[2018-11-20] MEDS: Acetaminophen 325 MG TAB PO PRN (08:09)
[2018-11-20] MEDS: Atenolol 25 MG TAB PO SCH ×2 (08:10→21:35)
[2018-11-20] MEDS: levETIRAcetam 500 mg/5 ml Oral Solution PO SCH ×2 (08:11→21:34)
[2018-11-20] MEDS: Lisinopril 10 MG TAB PO SCH ×2 (08:11→21:35)
--- NOTE | 2018-11-20 13:58 | PRG ---
DATE OF SERVICE: 11/20/2018 SUBJECTIVE: Mr. Salazar is doing well. He is more awake and up in his chair. He apparently did not want to eat lunch, but had a full Ensure. His spouse is in the room. OBJECTIVE: VITAL SIGNS: He is afebrile. Heart rate 67, respirations 16, oxygen saturation 97% on room air, and blood pressure is improved at 165/72. CARDIOVASCULAR SYSTEM: S1 and S2 plus. RESPIRATORY SYSTEM: Normal vesicular breath sounds. ABDOMEN: Soft and nontender. Bowel sounds heard in all quadrants. EXTREMITIES: Without cyanosis or clubbing. CENTRAL NERVOUS SYSTEM: Awake and responsive, but pleasantly confused. LABORATORY DATA: Blood cultures are negative so far. Urine culture is also negative. IMPRESSION: 1. Methicillin-resistant Staphylococcus aureus infection to right hip, requiring removal and replacement of hardware. 2. Atrial fibrillation. 3. Coronary artery disease. 4. Hypertension. 5. Seizure disorder. 6. History of cerebrovascular accident with improving deficits, and history of herpes zoster ophthalmicus resulting in postherpetic neuralgia. PLAN: 1. Continue current medications including IV antibiotics. 2. Nutritional support. 3. Orthopedic precautions. 4. DVT prophylaxis-he is on Eliquis. 5. Decubitus precautions. 6. Recheck CBC, CMP, CRP, and sedimentation rate on November 23. Discussed with the patient and spouse in detail. All questions answered. Continue IV antibiotics until December 08. Job ID: [id number]
[2018-11-20] MEDS: Lidocaine Patch Removal 1 EACH TOP SCH (21:36)
[2018-11-21] MEDS: Cefepime 1 GM in Sodium Chloride 0.9% 100 ML IVPB SCH ×2 (01:15→12:18)
[2018-11-21] MEDS: Vancomycin HCl 1 GM in Sodium Chloride 0.9% 250 ML 250 ML IVPB SCH ×2 (04:23→16:47)
[2018-11-21] MEDS: levETIRAcetam 500 mg/5 ml Oral Solution PO SCH ×2 (08:20→20:34)
[2018-11-21] MEDS: Ferrous Sulfate 325 MG TAB PO SCH ×2 (08:21→16:56)
[2018-11-21] MEDS: Multivitamin W/ Minerals 1 TAB PO SCH (08:21)
[2018-11-21] MEDS: Famotidine 20 MG TAB PO SCH (08:21)
[2018-11-21] MEDS: Atenolol 25 MG TAB PO SCH ×2 (08:21→20:35)
[2018-11-21] MEDS: Saccharomyces boulardii 250 MG CAP PO SCH ×2 (08:21→20:35)
[2018-11-21] MEDS: Lisinopril 10 MG TAB PO SCH ×2 (08:21→20:35)
[2018-11-21] MEDS: Aspirin 81 mg Enteric Coated Tablet PO SCH (08:21)
[2018-11-21] MEDS: Apixaban 2.5 MG TAB PO SCH ×2 (08:21→20:35)
[2018-11-21] MEDS: HYDROcodone/Acetaminophen 5/325 mg Tablet PO PRN (08:22)
[2018-11-21] MEDS: Lidocaine 5% Patch TD SCH (09:49)
[2018-11-21 15:50] LABS: Vancomycin, Trough 18.9 ug/mL
[2018-11-21] MEDS: Lidocaine Patch Removal 1 EACH TOP SCH (20:35)
[2018-11-22] MEDS: Cefepime 1 GM in Sodium Chloride 0.9% 100 ML IVPB SCH ×2 (01:18→12:58)
[2018-11-22] MEDS: Vancomycin HCl 1 GM in Sodium Chloride 0.9% 250 ML 250 ML IVPB SCH ×2 (04:33→16:15)
[2018-11-22] MEDS: levETIRAcetam 500 mg/5 ml Oral Solution PO SCH ×2 (08:32→21:15)
[2018-11-22] MEDS: Lisinopril 10 MG TAB PO SCH ×2 (08:33→21:15)
[2018-11-22] MEDS: Atenolol 25 MG TAB PO SCH ×2 (08:33→21:16)
[2018-11-22] MEDS: Aspirin 81 mg Enteric Coated Tablet PO SCH (08:33)
[2018-11-22] MEDS: Multivitamin W/ Minerals 1 TAB PO SCH (08:34)
[2018-11-22] MEDS: Apixaban 2.5 MG TAB PO SCH ×2 (08:34→21:17)
[2018-11-22] MEDS: Saccharomyces boulardii 250 MG CAP PO SCH ×2 (08:34→21:16)
[2018-11-22] MEDS: Ferrous Sulfate 325 MG TAB PO SCH ×2 (08:34→16:19)
[2018-11-22] MEDS: Lidocaine 5% Patch TD SCH (08:34)
[2018-11-22] MEDS: Famotidine 20 MG TAB PO SCH (08:34)
--- NOTE | 2018-11-22 13:39 | PRG ---
DATE OF SERVICE: SUBJECTIVE: Mr. Salazar is awake and responsive, remains pleasantly confused, spouse is in the room. He apparently did not eat any lunch, but did have his Ensure in the morning and this afternoon. He is scheduled for his weekly CBC, CMP, CRP, and sedimentation rate tomorrow. He is tolerating his antibiotics. No fever or chills. OBJECTIVE: VITAL SIGNS: He is afebrile. Heart rate 75, respirations 20, oxygen saturation 93% on room air, blood pressure 164/74. CARDIOVASCULAR SYSTEM: S1 and S2 plus. RESPIRATORY SYSTEM: Normal vesicular breath sounds. ABDOMEN: Soft, nontender. Bowel sounds heard in all quadrants. EXTREMITIES: Without cyanosis or clubbing. IMPRESSION: 1. 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 2. Coronary artery disease. 3. Hypertension. 4. Atrial fibrillation. 5. History of cerebrovascular accident. 6. Post herpetic neuralgia. PLAN: 1. Blood pressure continues to remain high. His lisinopril was increased to 20 mg b.i.d. We will add amlodipine. 2. Continue IV antibiotics. 3. Weekly CBC, CRP, CMP, and sedimentation rate. The next one is due tomorrow. 4. Nutritional support. 5. Orthopedic precautions. 6. Monitor heart rate and rhythm. 7. Discussed with the patient and spouse in detail and all questions answered. Job ID: [id number]
[2018-11-22] MEDS: Lidocaine Patch Removal 1 EACH TOP SCH (21:16)
[2018-11-23] MEDS: Cefepime 1 GM in Sodium Chloride 0.9% 100 ML IVPB SCH ×2 (00:44→13:10)
[2018-11-23] MEDS: Vancomycin HCl 1 GM in Sodium Chloride 0.9% 250 ML 250 ML IVPB SCH ×2 (03:51→16:22)
[2018-11-23 05:26] LABS: #Basophils 0.1 thou/uL (0.0-0.2); #Eosinphils 0.3 thou/uL (0.0-0.7); #Lymphocytes 0.9 thou/uL (1.20-3.40); #Monocytes 0.6 thou/uL (0.11-0.59); %Basophils 1.4 % (0.0-1.0); %Eosinophils 6.7 % (0.0-10.0); %Lymphocytes 17.6 % (21.0-51.0); %Monocytes 12.6 % (0.0-10.0); %Neutrophils 61.8 % (42.0-75.0); Hemoglobin 11.2 g/dL (14.0-18.0); Mean Corpuscular HGB CONC 31.5 g/dL (32.0-36.0); Mean Corpuscular Hemoglobin 26.8 pg (27.0-31.0); Mean Corpuscular Volume 85.1 fL (78.0-98.0); Platelet Count 195 thou/uL (130-400); RBC Distribution Width 13.3 % (11.5-14.5); Red Blood Cell (RBC) Count 4.17 mill/uL (4.70-6.10); White Blood Cell (WBC) Count 4.9 thou/uL (4.8-10.8)
[2018-11-23 05:46] LABS: ALT (SGPT) 17 U/L (8-55); AST (SGOT) 19 U/L (5-34); Albumin 3.2 g/dL (3.4-4.8); Alkaline Phosphatase 82 U/L (40-150); Anion Gap 14 mmol/L (10-20); BUN (Urea Nitrogen) 12 mg/dL (8.4-25.7); Bilirubin, Total 0.5 mg/dL (0.2-1.2); CRP (Inflammatory) 1.12 mg/dL (= or < 0.5); Calc. Creatinine Clearance 75 mL/min (70-130); Calcium 9.1 mg/dL (7.8-10.44); Carbon Dioxide 28 mmol/L (23-31); Chloride 96 mmol/L (98-107); Estimated GFR-MDRD Greater than 90; Globulin 2.6 g/dL (2.4-3.5); Glucose 112 mg/dL (83-110); Potassium 4.1 mmol/L (3.5-5.1); Protein, Total 5.8 g/dL (5.8-8.1); Sodium 134 mmol/L (136-145)
[2018-11-23] MEDS: Ferrous Sulfate 325 MG TAB PO SCH ×2 (08:55→17:45)
[2018-11-23] MEDS: Apixaban 2.5 MG TAB PO SCH ×2 (09:07→21:16)
[2018-11-23] MEDS: Atenolol 25 MG TAB PO SCH ×2 (09:08→21:16)
[2018-11-23] MEDS: Multivitamin W/ Minerals 1 TAB PO SCH (09:09)
[2018-11-23] MEDS: Aspirin 81 mg Enteric Coated Tablet PO SCH (09:09)
[2018-11-23] MEDS: Famotidine 20 MG TAB PO SCH (09:10)
[2018-11-23] MEDS: levETIRAcetam 500 mg/5 ml Oral Solution PO SCH ×2 (09:11→21:15)
[2018-11-23] MEDS: Lidocaine 5% Patch TD SCH (09:12)
[2018-11-23] MEDS: Lisinopril 10 MG TAB PO SCH ×2 (09:12→21:16)
[2018-11-23] MEDS: Amlodipine 5 MG TAB PO SCH (09:13)
[2018-11-23] MEDS: Saccharomyces boulardii 250 MG CAP PO SCH ×2 (10:01→21:16)
--- NOTE | 2018-11-23 10:37 | PRG ---
DATE OF SERVICE: 11/23/2018 SUBJECTIVE: Mr. Salazar is doing the same. Denies any complaints. No family at bedside, discussed with nursing. OBJECTIVE: VITAL SIGNS: He is afebrile. Heart rate is 69, respirations 22, oxygen saturation 100% on room air, and his blood pressure was 183/84. He was started on amlodipine yesterday. We will give it a couple of days and may need to increase the dose. He is already on lisinopril 20 b.i.d. CARDIOVASCULAR SYSTEM: S1 and S2 plus. RESPIRATORY SYSTEM: Normal vesicular breath sounds. ABDOMEN: Soft and nontender. Bowel sounds heard in all quadrants. EXTREMITIES: Without cyanosis or clubbing. CENTRAL NERVOUS SYSTEM: Awake, but confused. LABORATORY DATA: Laboratory values done this morning shows a white count of 4.9, H and H are 11.2 and 35.5. CRP is 1.12, down from 1.43. Sodium 134, potassium 4.1, BUN and creatinine are 12 and 1.63. Sedimentation rate is pending. IMPRESSION: 1. Right hip methicillin-resistant Staphylococcus aureus infection requiring removal and replacement of hardware. 2. Coronary artery disease. 3. Atrial fibrillation. 4. History of cerebrovascular accident with improving deficits. 5. Postherpetic neuralgia. 6. Seizure disorder. 7. Hypertension. PLAN: 1. Continue current medications. 2. Monitor blood pressure. He also has hyperesthesia, so I am not sure when they are checking the blood pressure cuff, it is causing him pain, which is making the blood pressure go up, but we will continue to monitor. 3. Continue IV antibiotics until December 08. 4. DVT prophylaxis. He is on Eliquis. 5. Seizure precautions. 6. Nutritional support. 7. Routine laboratory values. 8. Discussed with the patient and nursing in detail. All questions were answered. Job ID: [id number]
[2018-11-23] MEDS: Acetaminophen 325 MG TAB PO PRN (21:16)
[2018-11-23] MEDS: Lidocaine Patch Removal 1 EACH TOP SCH (21:16)
[2018-11-24] MEDS: Cefepime 1 GM in Sodium Chloride 0.9% 100 ML IVPB SCH ×2 (00:27→12:55)
[2018-11-24] MEDS: Vancomycin HCl 1 GM in Sodium Chloride 0.9% 250 ML 250 ML IVPB SCH ×2 (04:04→16:48)
[2018-11-24] MEDS: Atenolol 25 MG TAB PO SCH ×2 (08:41→21:08)
[2018-11-24] MEDS: Saccharomyces boulardii 250 MG CAP PO SCH ×2 (08:41→21:09)
[2018-11-24] MEDS: Ferrous Sulfate 325 MG TAB PO SCH ×2 (08:42→16:48)
[2018-11-24] MEDS: Lisinopril 10 MG TAB PO SCH ×2 (08:42→21:07)
[2018-11-24] MEDS: levETIRAcetam 500 mg/5 ml Oral Solution PO SCH ×2 (08:43→21:07)
[2018-11-24] MEDS: Aspirin 81 mg Enteric Coated Tablet PO SCH (08:43)
[2018-11-24] MEDS: Amlodipine 5 MG TAB PO SCH (08:43)
[2018-11-24] MEDS: Apixaban 2.5 MG TAB PO SCH ×2 (08:43→21:07)
[2018-11-24] MEDS: Multivitamin W/ Minerals 1 TAB PO SCH (08:43)
[2018-11-24] MEDS: Famotidine 20 MG TAB PO SCH (10:02)
[2018-11-24] MEDS: Lidocaine 5% Patch TD SCH (10:02)
[2018-11-24 15:43] LABS: Vancomycin, Trough 20.4 ug/mL
[2018-11-24] MEDS: Acetaminophen 325 MG TAB PO PRN (21:07)
[2018-11-24] MEDS: Lidocaine Patch Removal 1 EACH TOP SCH (21:08)
[2018-11-25] MEDS: Cefepime 1 GM in Sodium Chloride 0.9% 100 ML IVPB SCH ×2 (00:53→13:18)
[2018-11-25] MEDS: Vancomycin HCl 1 GM in Sodium Chloride 0.9% 250 ML 250 ML IVPB SCH ×2 (04:27→15:42)
--- NOTE | 2018-11-25 06:43 | PRG ---
DATE OF SERVICE: 11/24/2018 SUBJECTIVE: Patient awake and alert, sitting up in bed, but nonverbal, answers questions only slowly. Appears to be in no distress. OBJECTIVE: VITAL SIGNS: Shows his temperature is 156/67, temperature is 99.7, pulse 73, respirations 24, O2 sats 95% on room air. LUNGS: Clear. CARDIAC: Shows regular rhythm. ABDOMEN: Soft and nontender. ASSESSMENT: 1. Resolving right hip methicillin-resistant Staphylococcus aureus infection requiring removal and placement of hardware. 2. Stable cerebrovascular accident with persistent neurological deficits. 3. Stable coronary artery disease, asymptomatic. 4. Stable atrial fibrillation with rate control and anticoagulation on apixaban. 5. Stable seizure disorder with no recurrence. 6. Stable hypertension, controlled to goal. PLAN: 1. Continue IV antibiotics. 2. Continue to monitor vital signs closely. 3. Continue seizure precautions. 4. Monitor labs and therapy notes. Job ID: [id number]
[2018-11-25] MEDS ORDERED: Ondansetron PF 4 MG/2 ML Vial IVP PRN (07:31)
--- NOTE | 2018-11-25 08:00 | RAD ---
EXAM: Portable chest PROVIDED CLINICAL HISTORY: Cough COMPARISON: 11/17/2018 FINDINGS: Cardiac and mediastinal silhouette is within normal limits. No focal consolidation, pleural fluid or pneumothorax evident. Median sternotomy and CABG changes are again seen. Left upper extremity PICC line in similar position. IMPRESSION: No evidence for an acute cardiopulmonary process.
[2018-11-25] MEDS ORDERED: Acetaminophen 650 MG Suppository PR PRN (08:07)
[2018-11-25] MEDS ORDERED: hydrALAZINE 20 MG/ML VIAL SLOW IVP PRN (08:18)
[2018-11-25] MEDS: Aspirin 81 mg Enteric Coated Tablet PO SCH (08:36)
[2018-11-25] MEDS: Multivitamin W/ Minerals 1 TAB PO SCH (08:36)
[2018-11-25] MEDS: Amlodipine 5 MG TAB PO SCH (08:36)
[2018-11-25] MEDS: Saccharomyces boulardii 250 MG CAP PO SCH ×2 (08:36→20:47)
[2018-11-25] MEDS: Ferrous Sulfate 325 MG TAB PO SCH (08:38)
[2018-11-25] MEDS ORDERED: Enoxaparin Sodium 60 MG/0.6 ML SYRINGE SC SCH (09:00)
[2018-11-25] MEDS ORDERED: Famotidine/PF 20 mg/2ml Vial IVPB SCH (09:00)
[2018-11-25] MEDS: Atenolol 25 MG TAB PO SCH ×2 (09:00→20:46)
[2018-11-25] MEDS ORDERED: levETIRAcetam 500 MG/5 ML VIAL ONE (09:26)
[2018-11-25] MEDS ORDERED: Enalaprilat Dihydrate 1.25 MG/ML VIAL ONE (09:27)
[2018-11-25] MEDS: Lidocaine 5% Patch TD SCH (09:41)
[2018-11-25] MEDS ORDERED: Enalaprilat Dihydrate 1.25 MG/ML VIAL SLOW IVP SCH (10:00)
[2018-11-25] MEDS ORDERED: levETIRAcetam 500 MG in Sodium Chloride 0.9% 100 ML IVPB SCH (10:00)
[2018-11-25] MEDS: levETIRAcetam 500 MG/100 ML PREMIX BAG IVPB SCH ×3 (10:07→20:44)
[2018-11-25] MEDS ORDERED: Ondansetron ODT 4 MG TAB PO PRN (15:30)
[2018-11-25] MEDS: Lisinopril 20 MG TAB PO SCH (20:45)
[2018-11-25] MEDS: Apixaban 2.5 MG TAB PO SCH (20:46)
[2018-11-25] MEDS: Lidocaine Patch Removal 1 EACH TOP SCH (20:47)
[2018-11-25] MEDS ORDERED: Lisinopril 10 MG TAB PO SCH (21:00)
--- NOTE | 2018-11-25 21:53 | PRG ---
DATE OF SERVICE: SUBJECTIVE: The patient is sitting up in bed, minimally responsive. He is having some problems with swallowing and eating, and therefore Speech Therapy has evaluated him and recommended an MBS and felt that he is only safe for pureed diet at this time and thickened liquids. OBJECTIVE: VITAL SIGNS: Blood pressure 159/72, temperature 97, pulse 89, respirations 20, O2 sats 98% on room air. LUNGS: Clear. CARDIAC: Regular rhythm. ABDOMEN: Soft and nontender. ASSESSMENT: 1. Resolving right hip methicillin-resistant Staphylococcus infection, on IV antibiotics. 2. Stable atrial fibrillation with rate controlled on anticoagulation. 3. Cerebrovascular accident with persistent neurologic defects and now having failure of a speech evaluation, is being scheduled for a modified barium swallow, although chest x-ray shows no aspiration. 4. Stable coronary artery disease. PLAN: 1. Continue IV antibiotics. 2. Continue pureed diet, nectar thickened liquids. 3. Continue to monitor for aspiration. 4. Schedule modified barium swallow. Job ID: [id number]
[2018-11-26] MEDS: Cefepime 1 GM in Sodium Chloride 0.9% 100 ML IVPB SCH ×2 (00:52→12:55)
[2018-11-26] MEDS: Vancomycin HCl 1 GM in Sodium Chloride 0.9% 250 ML 250 ML IVPB SCH ×2 (03:50→16:54)
[2018-11-26] MEDS: Lidocaine 5% Patch TD SCH (09:19)
[2018-11-26] MEDS: levETIRAcetam 500 mg/5 ml Oral Solution PO SCH ×2 (09:21→21:15)
[2018-11-26] MEDS: Aspirin 81 mg Enteric Coated Tablet PO SCH ×2 (09:22→09:23)
[2018-11-26] MEDS: Saccharomyces boulardii 250 MG CAP PO SCH ×2 (09:22→21:15)
[2018-11-26] MEDS: Apixaban 2.5 MG TAB PO SCH ×2 (09:24→21:17)
[2018-11-26] MEDS: Multivitamin W/ Minerals 1 TAB PO SCH (09:25)
[2018-11-26] MEDS: Amlodipine 5 MG TAB PO SCH (09:28)
[2018-11-26] MEDS: Famotidine 20 MG TAB PO SCH (09:32)
[2018-11-26] MEDS: Atenolol 25 MG TAB PO SCH ×2 (09:52→21:16)
[2018-11-26] MEDS: Lisinopril 20 MG TAB PO SCH ×2 (09:54→21:17)
--- NOTE | 2018-11-26 13:35 | PRG ---
DATE OF SERVICE: 11/26/2018 SUBJECTIVE: Mr. Salazar apparently has not been eating or drinking well over the weekend and pocketing his foods. Speech Therapy was consulted. They switched him to pureed diet with the nectar thick liquids. This morning when Speech came by to evaluate him, he apparently refused to eat and even when he opened his mouth, he just kept the food down and did not chew or swallow. His is in the room this afternoon. She stated that she was able to make him to eat about a couple of bites, but she is also noticing that he is not wanting to eat and has pretty much given up. Discussed with her the options including PEG tube for aggressive treatment, and she does not want it. Her son is apparently coming in this weekend, and they are going to discuss future plans. He is a DNR. She confirmed, I will enter the order in. Plan is to just start him on some IV fluids, and she is also aware that there are some medicines that he needs, but he is not going to be able to take including the Eliquis, and she understands the risks of him not taking it as well as the Keppra. OBJECTIVE: VITAL SIGNS: He is afebrile, heart rate 83, respirations 20, oxygen saturation 99% on room air, and blood pressure 144/74. CARDIOVASCULAR SYSTEM: S1 and S2 plus. RESPIRATORY SYSTEM: Normal vesicular breath sounds. ABDOMEN: Soft, nontender. Bowel sounds heard in all quadrants. EXTREMITIES: Without cyanosis or clubbing. Some flexion contractures are noted. CENTRAL NERVOUS SYSTEM: Awake, but confused. IMPRESSION: 1. Methicillin-resistant Staphylococcus aureus infection, requiring removal and replacement of right hip hardware. 2. Coronary artery disease. 3. Atrial fibrillation. 4. Hypertension. 5. Seizure disorder. 6. History of cerebrovascular accident. 7. Postherpetic neuralgia. PLAN: 1. Pureed diet with aspiration precautions. 2. Crush medicines as much as and give it to him as tolerated. 3. IV fluids D5 normal saline at 75 mL an hour. 4. Continue IV antibiotics. 5. DNR status per . 6. Poor alf prognosis. 7. Family meeting this weekend. Job ID: [id number]
[2018-11-26] MEDS: Dextrose 5 % And 0.9 % NaCl 1,000 ML IV SCH (16:52)
[2018-11-26] MEDS: Acetaminophen 325 MG TAB PO PRN (21:15)
[2018-11-26] MEDS: Lidocaine Patch Removal 1 EACH TOP SCH (21:17)
[2018-11-27] MEDS: Cefepime 1 GM in Sodium Chloride 0.9% 100 ML IVPB SCH ×2 (01:35→13:36)
[2018-11-27] MEDS: Vancomycin HCl 1 GM in Sodium Chloride 0.9% 250 ML 250 ML IVPB SCH ×2 (04:14→15:43)
[2018-11-27] MEDS: Dextrose 5 % And 0.9 % NaCl 1,000 ML IV SCH ×2 (04:16→15:43)
[2018-11-27] MEDS: Lidocaine 5% Patch TD SCH (08:35)
[2018-11-27] MEDS: levETIRAcetam 500 mg/5 ml Oral Solution PO SCH ×2 (08:37→20:59)
[2018-11-27] MEDS: Multivitamin W/ Minerals 1 TAB PO SCH (08:38)
[2018-11-27] MEDS: Saccharomyces boulardii 250 MG CAP PO SCH ×2 (08:38→21:00)
[2018-11-27] MEDS: Amlodipine 5 MG TAB PO SCH (08:39)
[2018-11-27] MEDS: Famotidine 20 MG TAB PO SCH (08:39)
[2018-11-27] MEDS: Aspirin 81 mg Enteric Coated Tablet PO SCH (08:39)
[2018-11-27] MEDS: Lisinopril 20 MG TAB PO SCH ×2 (08:39→21:00)
[2018-11-27] MEDS: Atenolol 25 MG TAB PO SCH ×2 (08:40→21:00)
[2018-11-27] MEDS: Apixaban 2.5 MG TAB PO SCH ×2 (08:40→21:00)
--- NOTE | 2018-11-27 14:00 | PRG ---
DATE OF SERVICE: 11/27/2018 SUBJECTIVE: Mr. Salazar apparently just had one can of Ensure. He has not eaten anything. He apparently did not recognize his for the most part. thinks that he has given up. She does not want any aggressive treatment. Her son is coming in from [place], and they are going to make decisions regarding future plans. She has already looked into long-term care facilities, and she is thinking about hospice. OBJECTIVE: VITAL SIGNS: He is afebrile, heart rate 84, respirations 22, oxygen saturation 100% on room air, and blood pressure 160/78. CARDIOVASCULAR SYSTEM: S1 and S2 plus. RESPIRATORY SYSTEM: Normal vesicular breath sounds. ABDOMEN: Soft, nontender. Bowel sounds heard in all quadrants. EXTREMITIES: Without cyanosis or clubbing. Flexion contractures are present. CENTRAL NERVOUS SYSTEM: Arousable, but somnolent, pleasantly confused. IMPRESSION: 1. Methicillin-resistant Staphylococcus aureus infection, requiring removal and replacement of hardware in the right hip. 2. Coronary artery disease. 3. Atrial fibrillation. 4. Hypertension. 5. Postherpetic neuralgia. 6. History of cerebrovascular accident. 7. Seizure disorder. PLAN: 1. Continue current medications with aspiration precautions. 2. is aware that he is probably not getting the recommended dose of his Eliquis and Keppra and does increase his risk for seizures and cerebrovascular accident. 3. Continue IV antibiotics. 4. IV fluids. 5. Supportive care. 6. Poor long-term prognosis. 7. Discussed with spouse and nursing in detail. All questions answered. Job ID: [id number]
[2018-11-27] MEDS: Lidocaine Patch Removal 1 EACH TOP SCH (21:01)
[2018-11-28] MEDS: Dextrose 5 % And 0.9 % NaCl 1,000 ML IV SCH ×2 (01:32→21:51)
[2018-11-28] MEDS: Cefepime 1 GM in Sodium Chloride 0.9% 100 ML IVPB SCH ×2 (01:32→12:21)
[2018-11-28] MEDS: Vancomycin HCl 1 GM in Sodium Chloride 0.9% 250 ML 250 ML IVPB SCH ×2 (03:38→15:33)
[2018-11-28] MEDS: Lidocaine 5% Patch TD SCH (08:27)
[2018-11-28] MEDS: Famotidine 20 MG TAB PO SCH (08:27)
[2018-11-28] MEDS: Aspirin 81 mg Enteric Coated Tablet PO SCH (08:28)
[2018-11-28] MEDS: Apixaban 2.5 MG TAB PO SCH ×2 (08:28→21:51)
[2018-11-28] MEDS: Multivitamin W/ Minerals 1 TAB PO SCH (08:28)
[2018-11-28] MEDS: Saccharomyces boulardii 250 MG CAP PO SCH ×2 (08:28→21:51)
[2018-11-28] MEDS: Amlodipine 5 MG TAB PO SCH (08:31)
[2018-11-28] MEDS: Lisinopril 20 MG TAB PO SCH ×2 (08:32→21:51)
[2018-11-28] MEDS: Atenolol 25 MG TAB PO SCH ×2 (08:32→21:51)
[2018-11-28] MEDS: levETIRAcetam 500 mg/5 ml Oral Solution PO SCH ×2 (09:00→21:50)
--- NOTE | 2018-11-28 12:13 | PRG ---
DATE OF SERVICE: 11/28/2018 SUBJECTIVE: Mr. Salazar apparently ate 75% of his breakfast. He apparently was more awake and responsive to the nursing today. He is sleeping when examined him and not very responsive to any verbal stimulus. His spouse is not in the room. OBJECTIVE: VITAL SIGNS: He is afebrile, heart rate 66, respirations 20, oxygen saturation 100% on room air, and blood pressure 177/84. CARDIOVASCULAR SYSTEM: S1 and S2 plus. RESPIRATORY SYSTEM: Normal vesicular breath sounds. ABDOMEN: Soft, nontender. Bowel sounds heard in all quadrants. EXTREMITIES: Without cyanosis or clubbing. Possible fixed flexion contractures to both his knees and hips. CENTRAL NERVOUS SYSTEM: Sleeping, but arousable, not very response to me, but apparently, was more awake and alert this morning. IMPRESSION: 1. Methicillin-resistant Staphylococcus aureus infection of his right hip, requiring removal and replacement of hardware. 2. Coronary artery disease. 3. Hypertension. 4. Atrial fibrillation. 5. Seizure disorder. 6. Postherpetic neuralgia. 7. History of cerebrovascular accident. 8. Significant deconditioning. 9. Anemia of chronic disease. 10. Dysphagia. PLAN: 1. Continue current medications including IV fluids. 2. Encourage p.o. intake with aspiration precautions. 3. Continue IV antibiotics. 4. Weekly CBC, CRP, CMP, and sedimentation rate. 5. DVT prophylaxis. He is on Eliquis. 6. Seizure precaution. 7. Await family meeting this weekend. 8. Discussed with the patient and nursing in detail. All questions answered. Job ID: [id number]
[2018-11-28] MEDS: Lidocaine Patch Removal 1 EACH TOP SCH (21:58)
[2018-11-29] MEDS: Dextrose 5 % And 0.9 % NaCl 1,000 ML IV SCH ×4 (00:36→21:56)
[2018-11-29] MEDS: Cefepime 1 GM in Sodium Chloride 0.9% 100 ML IVPB SCH ×2 (00:36→13:28)
[2018-11-29] MEDS: Vancomycin HCl 1 GM in Sodium Chloride 0.9% 250 ML 250 ML IVPB SCH ×2 (04:16→15:19)
[2018-11-29] MEDS: Atenolol 25 MG TAB PO SCH ×2 (08:09→21:47)
[2018-11-29] MEDS: Saccharomyces boulardii 250 MG CAP PO SCH ×2 (08:09→21:47)
[2018-11-29] MEDS: Famotidine 20 MG TAB PO SCH (08:09)
[2018-11-29] MEDS: Lidocaine 5% Patch TD SCH (08:09)
[2018-11-29] MEDS: Lisinopril 20 MG TAB PO SCH ×2 (08:10→21:56)
[2018-11-29] MEDS: Apixaban 2.5 MG TAB PO SCH ×2 (08:10→21:47)
[2018-11-29] MEDS: Aspirin 81 mg Enteric Coated Tablet PO SCH (08:10)
[2018-11-29] MEDS: Amlodipine 5 MG TAB PO SCH (08:10)
[2018-11-29] MEDS: levETIRAcetam 500 mg/5 ml Oral Solution PO SCH ×2 (08:10→21:47)
[2018-11-29] MEDS: Multivitamin W/ Minerals 1 TAB PO SCH (08:10)
--- NOTE | 2018-11-29 14:07 | PRG ---
DATE OF SERVICE: 11/29/2018 SUBJECTIVE: Mr. Salazar is resting, but arousable. He apparently had a good breakfast and was alert and responsive to the nursing. He remains pleasantly confused. OBJECTIVE: VITAL SIGNS: He is afebrile. Heart rate is 65, respirations 20, oxygen saturation 100% on room air, blood pressure 146/65. CARDIOVASCULAR SYSTEM: S1 and S2 plus. RESPIRATORY SYSTEM: Normal vesicular breath sounds. ABDOMEN: Soft and nontender. Bowel sounds heard in all quadrants. EXTREMITIES: Without cyanosis or clubbing. Flexion contractures are noted. CENTRAL NERVOUS SYSTEM: Sleeping but arousable, pleasantly confused. IMPRESSION: 1. Methicillin-resistant Staphylococcus aureus infection to right hip, status post removal and replacement of hardware. 2. Coronary artery disease. 3. Atrial fibrillation. 4. History of cerebrovascular accident. 5. Seizure disorder. 6. Hypertension. 7. Postherpetic neuralgia. PLAN: 1. Continue current medications including IV antibiotics. 2. Nutritional support. 3. Aspiration precautions. 4. DVT prophylaxis - he is on Eliquis. 5. Decubitus precautions. 6. Weekly CBC, CRP, CMP, and sedimentation rate. It is due tomorrow. No family at bedside. Discussed with nursing. Job ID: [id number]
[2018-11-29] MEDS: Lidocaine Patch Removal 1 EACH TOP SCH (21:55)
[2018-11-30] MEDS: Cefepime 1 GM in Sodium Chloride 0.9% 100 ML IVPB SCH ×2 (01:50→12:24)
[2018-11-30] MEDS: Vancomycin HCl 1 GM in Sodium Chloride 0.9% 250 ML 250 ML IVPB SCH ×2 (05:01→16:43)
[2018-11-30 05:38] LABS: #Basophils 0.1 thou/uL (0.0-0.2); #Eosinphils 0.2 thou/uL (0.0-0.7); #Lymphocytes 0.8 thou/uL (1.20-3.40); #Monocytes 0.4 thou/uL (0.11-0.59); #Neutrophils 2.4 thou/uL (1.40-6.50); %Basophils 1.9 % (0.0-1.0); %Eosinophils 5.9 % (0.0-10.0); %Lymphocytes 20.2 % (21.0-51.0); %Monocytes 10.9 % (0.0-10.0); %Neutrophils 61.1 % (42.0-75.0); Hemoglobin 10.9 g/dL (14.0-18.0); Mean Corpuscular HGB CONC 32.2 g/dL (32.0-36.0); Mean Corpuscular Volume 83.9 fL (78.0-98.0); Mean Platelet Volume 6.3 fL (7.4-10.4); Platelet Count 191 thou/uL (130-400); RBC Distribution Width 13.1 % (11.5-14.5); Red Blood Cell (RBC) Count 4.02 mill/uL (4.70-6.10)
[2018-11-30 05:51] LABS: ALT (SGPT) 13 U/L (8-55); AST (SGOT) 10 U/L (5-34); Albumin 3.3 g/dL (3.4-4.8); Alkaline Phosphatase 77 U/L (40-150); Anion Gap 14 mmol/L (10-20); BUN (Urea Nitrogen) 8 mg/dL (8.4-25.7); Bilirubin, Total 0.4 mg/dL (0.2-1.2); CRP (Inflammatory) 1.35 mg/dL (= or < 0.5); Calc. Creatinine Clearance 77 mL/min (70-130); Calcium 8.9 mg/dL (7.8-10.44); Carbon Dioxide 26 mmol/L (23-31); Chloride 99 mmol/L (98-107); Estimated GFR-MDRD Greater than 90; Globulin 2.6 g/dL (2.4-3.5); Glucose 120 mg/dL (83-110); Protein, Total 5.9 g/dL (5.8-8.1); Sodium 136 mmol/L (136-145)
[2018-11-30 05:53] LABS: Potassium 2.9 mmol/L (3.5-5.1)
[2018-11-30] MEDS: NS 0.9% w/ 40 MEQ KCL 1,000 ML IV SCH ×2 (06:30→22:14)
[2018-11-30] MEDS: levETIRAcetam 500 mg/5 ml Oral Solution PO SCH ×2 (09:55→20:45)
[2018-11-30] MEDS: Famotidine 20 MG TAB PO SCH (09:55)
[2018-11-30] MEDS: Saccharomyces boulardii 250 MG CAP PO SCH ×2 (09:55→20:46)
[2018-11-30] MEDS: Aspirin 81 mg Enteric Coated Tablet PO SCH (09:56)
[2018-11-30] MEDS: Apixaban 2.5 MG TAB PO SCH ×2 (09:56→20:44)
[2018-11-30] MEDS: Multivitamin W/ Minerals 1 TAB PO SCH (09:56)
[2018-11-30] MEDS: Lisinopril 20 MG TAB PO SCH ×2 (09:56→20:46)
[2018-11-30] MEDS: Lidocaine 5% Patch TD SCH (09:56)
[2018-11-30] MEDS: Amlodipine 5 MG TAB PO SCH (09:56)
[2018-11-30] MEDS: Atenolol 25 MG TAB PO SCH ×2 (09:56→20:44)
--- NOTE | 2018-11-30 10:15 | PRG ---
DATE OF SERVICE: 11/30/2018 SUBJECTIVE: Mr. Salazar is doing the same. Denies any concerns. His potassium was low this morning and his IV fluids have been changed to normal saline with 40 of K. He was also given 40 mEq orally. His spouse is not in the room. OBJECTIVE: VITAL SIGNS: He is afebrile. Heart rate 68, respirations 20, oxygen saturation 97% on room air, blood pressure 146/65. CARDIOVASCULAR SYSTEM: S1 and S2 plus. RESPIRATORY SYSTEM: Normal vesicular breath sounds. ABDOMEN: Soft and nontender. Bowel sounds heard in all quadrants. EXTREMITIES: Without cyanosis or clubbing. Flexion contractures are noted. CENTRAL NERVOUS SYSTEM: Awake, but pleasantly confused. No change. IMPRESSION: 1. Right hip methicillin-resistant Staphylococcus aureus infection requiring removal and replacement of hardware. 2. Coronary artery disease. 3. Atrial fibrillation. 4. History of cerebrovascular accident. 5. Seizure disorder. 6. Postherpetic neuralgia. 7. 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 PLAN: 1. Continue IV antibiotics. 2. Monitor p.o. intake. 3. Aspiration precautions. 4. Monitor blood pressure and adjust medications as needed. 5. Weekly CBC, CRP, CMP, and sedimentation rate. 6. Replace potassium and recheck levels tomorrow. 7. Discussed with nursing. Job ID: [id number]
[2018-11-30 15:18] LABS: Vancomycin, Trough 18.5 ug/mL
[2018-11-30] MEDS: Lidocaine Patch Removal 1 EACH TOP SCH (20:45)
[2018-12-01] MEDS: Cefepime 1 GM in Sodium Chloride 0.9% 100 ML IVPB SCH ×2 (03:11→13:37)
[2018-12-01] MEDS: Vancomycin HCl 1 GM in Sodium Chloride 0.9% 250 ML 250 ML IVPB SCH ×2 (03:48→17:00)
[2018-12-01 05:57] LABS: Anion Gap 14 mmol/L (10-20); BUN (Urea Nitrogen) 6 mg/dL (8.4-25.7); Calc. Creatinine Clearance 81 mL/min (70-130); Carbon Dioxide 28 mmol/L (23-31); Chloride 97 mmol/L (98-107); Estimated GFR-MDRD Greater than 90; Glucose 102 mg/dL (83-110); Potassium 3.2 mmol/L (3.5-5.1); Sodium 136 mmol/L (136-145)
[2018-12-01] MEDS: Atenolol 25 MG TAB PO SCH ×2 (09:30→21:45)
[2018-12-01] MEDS: Amlodipine 5 MG TAB PO SCH (09:30)
[2018-12-01] MEDS: Aspirin 81 mg Enteric Coated Tablet PO SCH (09:30)
[2018-12-01] MEDS: Famotidine 20 MG TAB PO SCH (09:30)
[2018-12-01] MEDS: levETIRAcetam 500 mg/5 ml Oral Solution PO SCH ×2 (09:30→21:40)
[2018-12-01] MEDS: Saccharomyces boulardii 250 MG CAP PO SCH ×2 (09:30→21:40)
[2018-12-01] MEDS: Lisinopril 20 MG TAB PO SCH ×2 (09:30→21:40)
[2018-12-01] MEDS: Lidocaine 5% Patch TD SCH (09:30)
[2018-12-01] MEDS: Multivitamin W/ Minerals 1 TAB PO SCH (09:31)
[2018-12-01] MEDS: Apixaban 2.5 MG TAB PO SCH ×2 (09:31→21:40)
[2018-12-01] MEDS: NS 0.9% w/ 40 MEQ KCL 1,000 ML IV SCH (13:36)
[2018-12-01] MEDS: Acetaminophen 325 MG TAB PO PRN (15:03)
[2018-12-01] MEDS ORDERED: Potassium Chloride 20 MEQ TAB PO SCH (15:45)
--- NOTE | 2018-12-01 16:04 | PRG ---
DATE OF SERVICE: 12/01/2018 SUBJECTIVE: Mr. Salazar is up on his [employer] chair. His son is visiting from [place] and he apparently was able to recognize his son. He apparently also ate his pie and had a good breakfast, but did not eat hardly any lunch. I had a long discussion with the patient's son and his about his current condition and his prognosis. I advised them that the main reason he is really not doing well from a mobility standpoint, and developing contractures is that he has refused to participate with therapy. He also has some cognitive issues which are not related to any metabolic or infectious etiology. His laboratory value shows continued improvement of inflammatory markers, but he has not shown any clinical signs of improvement from a cognitive or a physical standpoint. Family is aware that he really needs long-term care and that the prognosis for improvement is poor unless the patient suddenly improves cognitively and is motivated to work with therapy as it is going to be a long road ahead. OBJECTIVE: VITAL SIGNS: He is afebrile. Heart rate 74, respirations 21, oxygen saturation 96% on room air, blood pressure this morning was 219/98. I asked them to recheck and it was 142/76. CARDIOVASCULAR SYSTEM: S1 and S2 plus. RESPIRATORY SYSTEM: Normal vesicular breath sounds. ABDOMEN: Soft and nontender. Bowel sounds heard in all quadrants. EXTREMITIES: Without cyanosis, clubbing, or flexion contractures. CENTRAL NERVOUS SYSTEM: Awake, but confused. Generalized weakness. LABORATORY VALUES: His potassium is improved, but still low at 3.2. IMPRESSION: 1. Coronary artery disease. 2. Atrial fibrillation. 3. Hypertension, fluctuating, controlled. 4. Methicillin-resistant Staphylococcus aureus infection, requiring removal and replacement of hardware. 5. Seizure disorder. 6. Postoperative neuralgia. 7. History of cerebrovascular accident. 8. Significant deconditioning and cognitive deficits. 9. Anemia likely due to chronic disease. PLAN: 1. Decrease Keppra per 's request, slow taper. She is aware of the risk of breakthrough seizures. 2. Continue other medications. 3. DVT prophylaxis - he is on Eliquis. 4. IV antibiotics until December 08. 5. Nutritional support. 6. Decubitus precaution. 7. Monitor blood pressure and adjust medications. 8. Discussed with the patient and his and son in detail. All questions answered. Job ID: [id number]
[2018-12-01] MEDS: Lidocaine Patch Removal 1 EACH TOP SCH (21:40)
[2018-12-02] MEDS: Cefepime 1 GM in Sodium Chloride 0.9% 100 ML IVPB SCH ×2 (01:03→13:06)
[2018-12-02] MEDS: Vancomycin HCl 1 GM in Sodium Chloride 0.9% 250 ML 250 ML IVPB SCH ×2 (04:49→16:31)
[2018-12-02] MEDS: NS 0.9% w/ 40 MEQ KCL 1,000 ML IV SCH ×2 (04:49→09:36)
[2018-12-02 05:27] LABS: Anion Gap 13 mmol/L (10-20); BUN (Urea Nitrogen) 9 mg/dL (8.4-25.7); Calc. Creatinine Clearance 80 mL/min (70-130); Calcium 9.2 mg/dL (7.8-10.44); Carbon Dioxide 28 mmol/L (23-31); Chloride 99 mmol/L (98-107); Estimated GFR-MDRD Greater than 90; Glucose 118 mg/dL (83-110); Potassium 3.8 mmol/L (3.5-5.1); Sodium 136 mmol/L (136-145)
[2018-12-02] MEDS: Lidocaine 5% Patch TD SCH (09:36)
[2018-12-02] MEDS: Apixaban 2.5 MG TAB PO SCH ×2 (09:37→21:36)
[2018-12-02] MEDS: Lisinopril 20 MG TAB PO SCH ×2 (09:37→21:36)
[2018-12-02] MEDS: Atenolol 25 MG TAB PO SCH ×2 (09:37→21:36)
[2018-12-02] MEDS: Famotidine 20 MG TAB PO SCH (09:37)
[2018-12-02] MEDS: Aspirin 81 mg Enteric Coated Tablet PO SCH (09:37)
[2018-12-02] MEDS: Saccharomyces boulardii 250 MG CAP PO SCH ×2 (09:37→21:35)
[2018-12-02] MEDS: Amlodipine 5 MG TAB PO SCH (09:37)
[2018-12-02] MEDS: Multivitamin W/ Minerals 1 TAB PO SCH (09:37)
[2018-12-02] MEDS: levETIRAcetam 500 mg/5 ml Oral Solution PO SCH ×2 (09:37→21:35)
[2018-12-02] MEDS ORDERED: Cefepime 1 GM VIAL ONE (12:49)
--- NOTE | 2018-12-02 16:13 | PRG ---
DATE OF SERVICE: 12/02/2018 SUBJECTIVE: Mr. Salazar is somnolent. He is confused. He is not responding appropriately to verbal stimuli. Nursing states that he actually did eat well this morning and he just is sleeping at this point. They do not notice any changes. Family is not in the room. OBJECTIVE: VITAL SIGNS: He is afebrile, heart rate 70, respirations 18, oxygen saturation 98% on room air, and blood pressure was 178/81 this morning. I advised nursing to try to check it later after they had given him his blood pressure medicines. CARDIOVASCULAR SYSTEM: S1 and S2 plus. RESPIRATORY SYSTEM: Normal vesicular breath sounds. ABDOMEN: Soft and nontender. Bowel sounds heard in all quadrants. EXTREMITIES: Without cyanosis or clubbing. Mild flexion contractures are noted. CENTRAL NERVOUS SYSTEM: Awake, but confused. IMPRESSION: 1. Methicillin-resistant Staphylococcus aureus of right hip, requiring removal and replacement of hardware. 2. Coronary artery disease. 3. Atrial fibrillation. 4. Hypertension. 5. Seizure disorder. 6. Postherpetic neuralgia. 7. History of cerebrovascular accident. 8. Deconditioning and cognitive deficits. PLAN: 1. Continue supportive care. 2. Speech therapy to re-evaluate the patient tomorrow and see if his diet can be advanced. 3. DVT prophylaxis - he is on Eliquis. 4. Decubitus precautions. 5. Stress ulcer prophylaxis. 6. Seizure precaution. 7. Nutritional support. 8. Poor long-term prognosis. 9. Tolerating the decreased dose of Keppra. Job ID: [id number]
[2018-12-02] MEDS: Lidocaine Patch Removal 1 EACH TOP SCH (21:36)
[2018-12-03] MEDS ORDERED: Cefepime 1 GM VIAL ONE (01:11)
[2018-12-03] MEDS: Cefepime 1 GM in Sodium Chloride 0.9% 100 ML IVPB SCH ×2 (01:40→13:50)
[2018-12-03] MEDS: NS 0.9% w/ 40 MEQ KCL 1,000 ML IV SCH ×2 (01:41→21:50)
[2018-12-03] MEDS: Vancomycin HCl 1 GM in Sodium Chloride 0.9% 250 ML 250 ML IVPB SCH ×2 (05:01→16:48)
[2018-12-03] MEDS: Lidocaine 5% Patch TD SCH (09:44)
[2018-12-03] MEDS: levETIRAcetam 500 mg/5 ml Oral Solution PO SCH ×2 (09:45→21:49)
[2018-12-03] MEDS: Amlodipine 5 MG TAB PO SCH (09:46)
[2018-12-03] MEDS: Famotidine 20 MG TAB PO SCH (09:46)
[2018-12-03] MEDS: Atenolol 25 MG TAB PO SCH ×2 (09:46→21:49)
[2018-12-03] MEDS: Lisinopril 20 MG TAB PO SCH ×2 (09:47→21:49)
[2018-12-03] MEDS: Multivitamin W/ Minerals 1 TAB PO SCH (09:48)
[2018-12-03] MEDS: Saccharomyces boulardii 250 MG CAP PO SCH ×2 (09:48→21:49)
[2018-12-03] MEDS: Aspirin 81 mg Enteric Coated Tablet PO SCH (09:48)
[2018-12-03] MEDS: Apixaban 2.5 MG TAB PO SCH ×2 (09:48→21:49)
--- NOTE | 2018-12-03 18:32 | PRG ---
DATE OF SERVICE: 12/03/2018 SUBJECTIVE: Mr. Salazar is more awake. His and son are in the room. He denies any concerns. He apparently ate well. Family is aware that his cognitive status is what is going to determine his improvement and whether he is going to walk again. They are aware that his antibiotics are supposed to end on the and after that he will be on oral antibiotics. has already looked into long-term care. All questions were answered. OBJECTIVE: VITAL SIGNS: He is afebrile. Heart rate 65, respirations 20, oxygen saturation 99% on room air, and blood pressure 172/77. CARDIOVASCULAR: S1 and S2 plus. RESPIRATORY: Normal vesicular breath sounds. ABDOMEN: Soft and nontender. Bowel sounds heard in all quadrants. EXTREMITIES: Without cyanosis or clubbing. Minimal flexion contractures are noted. CENTRAL NERVOUS SYSTEM: Awake, but pleasantly confused. IMPRESSION: 1. Methicillin-resistant Staphylococcus aureus infection of the right hip, requiring removal and replacement of hardware. 2. Coronary artery disease. 3. Atrial fibrillation. 4. Hypertension. 5. Postherpetic neuralgia. 6. Seizure disorder. 7. History of cerebrovascular accident. PLAN: 1. Increase amlodipine to 10 mg and change timing to 6 a.m. as they seemed to be checking his blood pressure before they give him his blood pressure medicines. 2. Nutritional support. 3. Speech Therapy evaluation to see if his diet can be advanced back to his usual diet and not pureed. 4. Continue IV antibiotics until the . 5. Check CBC, CMP, CRP, and sedimentation rate on . 6. DVT prophylaxis. He is on Eliquis. 7. Seizure precaution. 8. Stress ulcer prophylaxis. 9. Discussed with the patient and family in detail. All questions answered. Job ID: [id number]
[2018-12-03] MEDS: Lidocaine Patch Removal 1 EACH TOP SCH (21:50)
[2018-12-04] MEDS: Cefepime 1 GM in Sodium Chloride 0.9% 100 ML IVPB SCH ×2 (00:50→12:55)
[2018-12-04] MEDS: NS 0.9% w/ 40 MEQ KCL 1,000 ML IV SCH (03:55)
[2018-12-04] MEDS: Vancomycin HCl 1 GM in Sodium Chloride 0.9% 250 ML 250 ML IVPB SCH ×2 (04:55→16:07)
[2018-12-04] MEDS: Amlodipine 10 MG TAB PO SCH (06:00)
[2018-12-04] MEDS: levETIRAcetam 500 mg/5 ml Oral Solution PO SCH ×2 (09:37→21:49)
[2018-12-04] MEDS: Lidocaine 5% Patch TD SCH (09:37)
[2018-12-04] MEDS: Saccharomyces boulardii 250 MG CAP PO SCH ×2 (09:38→21:50)
[2018-12-04] MEDS: Multivitamin W/ Minerals 1 TAB PO SCH (09:39)
[2018-12-04] MEDS: Apixaban 2.5 MG TAB PO SCH ×2 (09:39→21:50)
[2018-12-04] MEDS: Lisinopril 20 MG TAB PO SCH ×2 (09:39→21:50)
[2018-12-04] MEDS: Aspirin 81 mg Enteric Coated Tablet PO SCH (09:40)
[2018-12-04] MEDS: Famotidine 20 MG TAB PO SCH (09:40)
[2018-12-04] MEDS: Atenolol 25 MG TAB PO SCH ×2 (09:41→21:50)
--- NOTE | 2018-12-04 14:20 | PRG ---
DATE OF SERVICE: 12/04/2018 SUBJECTIVE: Mr. Salazar is awake and resting in bed. Denies any complaints. Discussed with nursing and no changes. No family at bedside. OBJECTIVE: VITAL SIGNS: He is afebrile, heart rate 75, respirations 20, oxygen saturation 97% on room air, and blood pressure is 136/70. CARDIOVASCULAR SYSTEM: S1 and S2 plus. RESPIRATORY SYSTEM: Normal vesicular breath sounds. ABDOMEN: Soft and nontender. Bowel sounds heard in all quadrants. EXTREMITIES: Without cyanosis or clubbing. Some contractures noted. CENTRAL NERVOUS SYSTEM: Awake, but confused. No change. IMPRESSION: 1. Methicillin-resistant Staphylococcus aureus infection in the right hip, requiring removal and replacement of hardware. 2. Coronary artery disease. 3. Atrial fibrillation. 4. Hypertension, much better controlled since changing the timing on his medications. 5. Seizure disorder. 6. Postherpetic neuralgia. 7. History of cerebrovascular accident and cognitive deficits. PLAN: 1. Continue current medications. 2. DVT and stress ulcer prophylaxis. 3. Decubitus precautions. 4. Nutritional support. 5. CMP, CBC, CRP and sedimentation rate on the , and hopefully, finish antibiotics on the , to switch him to oral antibiotic. has already looked into [facility] for long-term care placement. Job ID: [id number]
[2018-12-04] MEDS: Lidocaine Patch Removal 1 EACH TOP SCH (21:50)
[2018-12-05] MEDS: Cefepime 1 GM in Sodium Chloride 0.9% 100 ML IVPB SCH ×2 (01:02→12:40)
[2018-12-05] MEDS: Vancomycin HCl 1 GM in Sodium Chloride 0.9% 250 ML 250 ML IVPB SCH ×2 (04:14→16:03)
[2018-12-05] MEDS: Amlodipine 10 MG TAB PO SCH (06:09)
[2018-12-05] MEDS: Multivitamin W/ Minerals 1 TAB PO SCH (09:00)
[2018-12-05] MEDS: Aspirin 81 mg Enteric Coated Tablet PO SCH (09:00)
[2018-12-05] MEDS: Famotidine 20 MG TAB PO SCH (09:00)
[2018-12-05] MEDS: Atenolol 25 MG TAB PO SCH ×2 (09:00→21:30)
[2018-12-05] MEDS: Apixaban 2.5 MG TAB PO SCH ×2 (09:00→21:30)
[2018-12-05] MEDS: levETIRAcetam 500 mg/5 ml Oral Solution PO SCH ×2 (09:00→21:31)
[2018-12-05] MEDS: Lisinopril 20 MG TAB PO SCH ×2 (09:01→21:30)
[2018-12-05] MEDS: Saccharomyces boulardii 250 MG CAP PO SCH ×2 (09:01→21:30)
[2018-12-05] MEDS: Lidocaine 5% Patch TD SCH (09:02)
--- NOTE | 2018-12-05 14:20 | PRG ---
DATE OF SERVICE: 12/05/2018 SUBJECTIVE: Mr. Salazar is doing the same. Remains pleasantly confused. OBJECTIVE: VITAL SIGNS: He is afebrile, heart rate 88, respirations 22, oxygen saturation 99% on room air, and his blood pressure this morning was 136/70. CARDIOVASCULAR SYSTEM: S1 and S2 plus. RESPIRATORY SYSTEM: Normal vesicular breath sounds. ABDOMEN: Soft and nontender. Bowel sounds heard in all quadrants. EXTREMITIES: Without cyanosis or clubbing. Mild flexion contractures are noted. CENTRAL NERVOUS SYSTEM: Awake, but confused. No changes. IMPRESSION: 1. Methicillin-resistant Staphylococcus aureus infection to right hip, status post removal and replacement of hardware. 2. Hypertension, improving control. 3. Atrial fibrillation. 4. Coronary artery disease. 5. Postherpetic neuralgia. 6. Seizure disorder. 7. History of cerebrovascular accident with minimal right-sided deficits, difficult to determine at this point due to his hyperesthesia and lack of cooperation with any examination. PLAN: 1. Continue current medications. 2. Recheck CBC, CMP, CRP, and sedimentation rate tomorrow. 3. Anticipate discharging him to long-term care once his antibiotics done on the and his blood work continues to look good. 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 5. Continue current medication. 6. No family at bedside. Job ID: [id number]
[2018-12-05] MEDS: Acetaminophen 325 MG TAB PO PRN (21:29)
[2018-12-05] MEDS: Lidocaine Patch Removal 1 EACH TOP SCH (21:30)
[2018-12-06] MEDS: Cefepime 1 GM in Sodium Chloride 0.9% 100 ML IVPB SCH ×2 (00:38→13:42)
[2018-12-06] MEDS: Vancomycin HCl 1 GM in Sodium Chloride 0.9% 250 ML 250 ML IVPB SCH ×2 (04:18→16:00)
[2018-12-06] MEDS: Amlodipine 10 MG TAB PO SCH (06:04)
[2018-12-06] MEDS: Famotidine 20 MG TAB PO SCH (09:37)
[2018-12-06] MEDS: Saccharomyces boulardii 250 MG CAP PO SCH ×2 (09:37→20:40)
[2018-12-06] MEDS: Atenolol 25 MG TAB PO SCH ×2 (09:37→20:41)
[2018-12-06] MEDS: levETIRAcetam 500 mg/5 ml Oral Solution PO SCH ×2 (09:37→20:39)
[2018-12-06] MEDS: Lisinopril 20 MG TAB PO SCH ×2 (09:37→20:40)
[2018-12-06] MEDS: Lidocaine 5% Patch TD SCH (09:38)
[2018-12-06] MEDS: Aspirin 81 mg Enteric Coated Tablet PO SCH (09:38)
[2018-12-06] MEDS: Multivitamin W/ Minerals 1 TAB PO SCH (09:38)
[2018-12-06] MEDS: Apixaban 2.5 MG TAB PO SCH ×2 (09:38→20:42)
--- NOTE | 2018-12-06 13:46 | PRG ---
DATE OF SERVICE: 12/06/2018 SUBJECTIVE: Mr. Salazar is apparently not waking up today. He is grimacing like he is in pain. He does have the Lidoderm patch on his fore-scalp. His is in the room. Again, she states that he has really given up. She is open to hospice, but she wants to take him to long-term care first after the antibiotics are done and see how he does. She again refuses PEG tube feeding or any aggressive treatment other than the antibiotics if needed. OBJECTIVE: VITAL SIGNS: He is afebrile. Heart rate 76, respirations 20, oxygen saturation 98% on room air, and blood pressure 134/70. CARDIOVASCULAR SYSTEM: S1 and S2 plus. RESPIRATORY SYSTEM: Normal vesicular breath sounds. ABDOMEN: Soft and nontender. Bowel sounds heard in all quadrants. EXTREMITIES: Without cyanosis or clubbing. CENTRAL NERVOUS SYSTEM: No change. IMPRESSION: 1. Methicillin-resistant Staphylococcus aureus infection of the right hip, requiring removal and replacement of hardware. 2. Hypertension. 3. Coronary artery disease. 4. Atrial fibrillation. 5. History of cerebrovascular accident. 6. Postherpetic neuralgia. 7. Seizure disorder. PLAN: 1. Continue current medications. 2. Nutritional support. 3. DVT prophylaxis-he is already on Eliquis. 4. Decubitus precautions. 5. Recheck CBC, CRP, CMP, and sedimentation rate tomorrow. 6. Anticipate switching him to oral antibiotics on the . 7. Long-term care placement. 8. Poor longterm prognosis unless his cognition somehow improves, where he is able to comprehend the need for participating with therapy and eating. Job ID: [id number]
[2018-12-06] MEDS: Lidocaine Patch Removal 1 EACH TOP SCH (20:41)
[2018-12-07] MEDS: Cefepime 1 GM in Sodium Chloride 0.9% 100 ML IVPB SCH ×2 (00:56→13:45)
[2018-12-07] MEDS: Vancomycin HCl 1 GM in Sodium Chloride 0.9% 250 ML 250 ML IVPB SCH ×2 (04:08→16:28)
[2018-12-07 05:32] LABS: #Basophils 0.1 thou/uL (0.0-0.2); #Eosinphils 0.1 thou/uL (0.0-0.7); #Lymphocytes 0.8 thou/uL (1.20-3.40); #Monocytes 0.8 thou/uL (0.11-0.59); #Neutrophils 3.5 thou/uL (1.40-6.50); %Basophils 1.4 % (0.0-1.0); %Eosinophils 2.4 % (0.0-10.0); %Lymphocytes 15.8 % (21.0-51.0); %Monocytes 14.3 % (0.0-10.0); Mean Corpuscular HGB CONC 31.9 g/dL (32.0-36.0); Mean Corpuscular Volume 84.6 fL (78.0-98.0); Mean Platelet Volume 6.2 fL (7.4-10.4); Platelet Count 206 thou/uL (130-400); RBC Distribution Width 13.6 % (11.5-14.5); Red Blood Cell (RBC) Count 4.45 mill/uL (4.70-6.10); White Blood Cell (WBC) Count 5.3 thou/uL (4.8-10.8)
[2018-12-07] MEDS: Amlodipine 10 MG TAB PO SCH (05:42)
[2018-12-07 05:51] LABS: ALT (SGPT) 17 U/L (8-55); AST (SGOT) 17 U/L (5-34); Albumin 3.3 g/dL (3.4-4.8); Alkaline Phosphatase 81 U/L (40-150); Anion Gap 15 mmol/L (10-20); BUN (Urea Nitrogen) 15 mg/dL (8.4-25.7); Bilirubin, Total 0.9 mg/dL (0.2-1.2); CRP (Inflammatory) 11.61 mg/dL (= or < 0.5); Calc. Creatinine Clearance 75 mL/min (70-130); Calcium 9.2 mg/dL (7.8-10.44); Carbon Dioxide 25 mmol/L (23-31); Chloride 96 mmol/L (98-107); Estimated GFR-MDRD Greater than 90; Globulin 2.7 g/dL (2.4-3.5); Glucose 105 mg/dL (83-110); Potassium 3.3 mmol/L (3.5-5.1); Sodium 133 mmol/L (136-145)
[2018-12-07] MEDS: levETIRAcetam 500 mg/5 ml Oral Solution PO SCH ×2 (08:28→21:05)
[2018-12-07] MEDS: Lidocaine 5% Patch TD SCH (08:28)
[2018-12-07] MEDS: Saccharomyces boulardii 250 MG CAP PO SCH ×2 (08:28→21:06)
[2018-12-07] MEDS: Multivitamin W/ Minerals 1 TAB PO SCH (08:30)
[2018-12-07] MEDS: Famotidine 20 MG TAB PO SCH (08:30)
[2018-12-07] MEDS: Aspirin 81 mg Enteric Coated Tablet PO SCH (08:31)
[2018-12-07] MEDS: Apixaban 2.5 MG TAB PO SCH ×2 (08:31→21:07)
[2018-12-07] MEDS: Atenolol 25 MG TAB PO SCH ×2 (08:32→21:06)
[2018-12-07] MEDS: Lisinopril 20 MG TAB PO SCH ×2 (08:33→21:06)
[2018-12-07 15:17] LABS: Vancomycin, Trough 20.8 ug/mL
[2018-12-07] MEDS: Lidocaine Patch Removal 1 EACH TOP SCH (21:07)
[2018-12-08] MEDS: Cefepime 1 GM in Sodium Chloride 0.9% 100 ML IVPB SCH ×2 (01:37→12:37)
[2018-12-08] MEDS: Vancomycin HCl 1 GM in Sodium Chloride 0.9% 250 ML 250 ML IVPB SCH ×2 (04:21→15:55)
[2018-12-08] MEDS: Amlodipine 10 MG TAB PO SCH (05:47)
[2018-12-08] MEDS: Saccharomyces boulardii 250 MG CAP PO SCH ×2 (09:53→21:31)
[2018-12-08] MEDS: Lisinopril 20 MG TAB PO SCH ×2 (09:53→21:31)
[2018-12-08] MEDS: Lidocaine 5% Patch TD SCH (09:53)
[2018-12-08] MEDS: Multivitamin W/ Minerals 1 TAB PO SCH (09:53)
[2018-12-08] MEDS: Atenolol 25 MG TAB PO SCH ×2 (09:54→21:32)
[2018-12-08] MEDS: Apixaban 2.5 MG TAB PO SCH ×2 (09:54→21:32)
[2018-12-08] MEDS: levETIRAcetam 500 mg/5 ml Oral Solution PO SCH ×2 (09:54→21:31)
[2018-12-08] MEDS: Famotidine 20 MG TAB PO SCH (09:54)
[2018-12-08] MEDS: Aspirin 81 mg Enteric Coated Tablet PO SCH (09:54)
--- NOTE | 2018-12-08 10:58 | PRG ---
DATE OF SERVICE: 12/08/2018 SUBJECTIVE: The patient is lying in bed, is talking, responding today somewhat appropriately, but is refusing to eat or to do any therapy. OBJECTIVE: VITAL SIGNS: Blood pressure is 158/84, temperature is 98, pulse 85, respirations 20, O2 saturations 98% on room air. LABORATORY DATA: White count 5300, hematocrit 37, hemoglobin 12, sodium 133, potassium 3.3, chloride 96, bicarb 25, BUN 15, creatinine 0.63, GFR greater than 90, glucose 105. Liver functions normal. C-reactive protein is back up to 11.61 after being normal at 1.35 yesterday. ASSESSMENT: 1. Methicillin-resistant Staphylococcus infection of right hip requiring removal or placement of hardware and now after 8 weeks of IV antibiotics, still has elevated CRP despite not discontinuing antibiotics. 2. Hypertension, controlled to goal. 3. Coronary artery disease, asymptomatic. 4. Atrial fibrillation with rate control and anticoagulation. 5. Post herpetic neuralgia. 6. Seizure disorder. PLAN: 1. Continue IV antibiotics until December [address] Godinez returns. 2. Continue rate control and anticoagulation of atrial fibrillation. 3. Continue PT/OT. 4. Discuss long-term placement with Dr. Godinez. Job ID: [id number]
--- NOTE | 2018-12-08 10:59 | PRG ---
DATE OF SERVICE: 12/07/2018 SUBJECTIVE: Mr. Salazar is more awake and responsive, still pleasantly confused. Denies any complaints. No family at bedside. Discussed with nursing and he apparently hardly ate his breakfast. Reviewed his labs and unfortunately, his CRP has really jumped up to 11, it was 1.4, but his sedimentation rate is down to 30. I am not sure if this means his infection is acting up or if there is some other inflammatory process going on. His other laboratory values are within normal limits just to be safe since he has history of recurrent MRSA. Plan is to continue his IV antibiotics for a total of 6 continuous weeks of treatment. OBJECTIVE: VITAL SIGNS: He is afebrile, heart rate 85, respirations 20, oxygen saturation 98% on room air. VITAL SIGNS: Blood pressure 158/84. CARDIOVASCULAR SYSTEM: S1 and S2 plus. RESPIRATORY SYSTEM: Normal vesicular breath sounds. ABDOMEN: Soft and nontender. Bowel sounds heard in all quadrants. EXTREMITIES: Without cyanosis or clubbing. CENTRAL NERVOUS SYSTEM: No change. IMPRESSION: 1. Methicillin-resistant Staphylococcus aureus infection of the right hip, requiring removal and replacement of hardware. 2. Coronary artery disease. 3. Atrial fibrillation. 4. Hypertension. 5. Seizure disorder. 6. Postherpetic neuralgia. 7. History of cerebrovascular accident. PLAN: 1. Continue current medication. 2. Continue to encourage p.o. intake. 3. Monitor clinical improvement. 4. Continue IV antibiotics for 2 more weeks. 5. Discuss with Case Management. 6. Dr. Jarrod Norris on-call this weekend. 7. DVT and stress ulcer prophylaxis. Job ID: [id number]
[2018-12-08] MEDS: Lidocaine Patch Removal 1 EACH TOP SCH (21:33)
[2018-12-09] MEDS: Cefepime 1 GM in Sodium Chloride 0.9% 100 ML IVPB SCH ×2 (01:22→12:49)
[2018-12-09] MEDS: Vancomycin HCl 1 GM in Sodium Chloride 0.9% 250 ML 250 ML IVPB SCH ×2 (04:13→16:52)
[2018-12-09] MEDS: Amlodipine 10 MG TAB PO SCH (05:44)
[2018-12-09] MEDS: Lidocaine 5% Patch TD SCH (09:22)
[2018-12-09] MEDS: Apixaban 2.5 MG TAB PO SCH ×2 (09:22→20:45)
[2018-12-09] MEDS: Multivitamin W/ Minerals 1 TAB PO SCH (09:22)
[2018-12-09] MEDS: Saccharomyces boulardii 250 MG CAP PO SCH ×2 (09:22→20:45)
[2018-12-09] MEDS: Lisinopril 20 MG TAB PO SCH ×2 (09:22→20:45)
[2018-12-09] MEDS: Atenolol 25 MG TAB PO SCH ×2 (09:23→20:46)
[2018-12-09] MEDS: Famotidine 20 MG TAB PO SCH (09:23)
[2018-12-09] MEDS: Aspirin 81 mg Enteric Coated Tablet PO SCH (09:23)
[2018-12-09] MEDS: levETIRAcetam 500 mg/5 ml Oral Solution PO SCH ×2 (09:29→20:45)
[2018-12-09] MEDS: Lidocaine Patch Removal 1 EACH TOP SCH (20:46)
--- NOTE | 2018-12-09 22:14 | PRG ---
DATE OF SERVICE: 12/09/2018 SUBJECTIVE: Patient yesterday was alert and responsive, although confused. Today, patient slumped over in the bed in no distress, but not responsive and not eating. OBJECTIVE: VITAL SIGNS: Show blood pressure is 170/75, temperature is 99, pulse 81, respirations 18, and O2 sats 96% on room air. LUNGS: Clear. CARDIAC: Shows regular rhythm. ABDOMEN: Soft and nontender. EXTREMITIES: There is some tenderness upon movement of both legs. ASSESSMENT: 1. Methicillin-resistant Staph infection of the right hip elevated CRP. We will therefore continue on IV antibiotics until December 22. 2. Hypertension, controlled to goal. 3. Coronary artery disease, asymptomatic. 4. Atrial fibrillation with rate controlled, on anticoagulation. PLAN: 1. Continue IV antibiotics until December 22. 2. Continue rate control and anticoagulation of atrial fibrillation. 3. Continue to attempt PT and OT. 4. Discuss long-term placement with PCP and family. Job ID: [id number]
[2018-12-10] MEDS: Cefepime 1 GM in Sodium Chloride 0.9% 100 ML IVPB SCH ×2 (00:50→13:39)
[2018-12-10] MEDS: Vancomycin HCl 1 GM in Sodium Chloride 0.9% 250 ML 250 ML IVPB SCH ×2 (04:10→16:22)
[2018-12-10] MEDS ORDERED: Amlodipine 10 MG TAB ONE (05:49)
[2018-12-10] MEDS: Amlodipine 10 MG TAB PO SCH (05:51)
[2018-12-10] MEDS: Lidocaine 5% Patch TD SCH (09:55)
[2018-12-10] MEDS: Atenolol 25 MG TAB PO SCH ×2 (09:55→21:38)
[2018-12-10] MEDS: Multivitamin W/ Minerals 1 TAB PO SCH (09:55)
[2018-12-10] MEDS: Apixaban 2.5 MG TAB PO SCH ×2 (09:55→21:40)
[2018-12-10] MEDS: Lisinopril 20 MG TAB PO SCH ×2 (09:55→21:40)
[2018-12-10] MEDS: Saccharomyces boulardii 250 MG CAP PO SCH ×2 (09:55→21:38)
[2018-12-10] MEDS: Aspirin 81 mg Enteric Coated Tablet PO SCH (09:55)
[2018-12-10] MEDS: Famotidine 20 MG TAB PO SCH (09:55)
[2018-12-10] MEDS: levETIRAcetam 500 mg/5 ml Oral Solution PO SCH ×2 (09:55→21:38)
--- NOTE | 2018-12-10 14:21 | PRG ---
DATE OF SERVICE: SUBJECTIVE: Mr. Salazar is doing the same. He is sleeping. Spoke with his in detail. She is aware of the fluctuation and his behaviors. She was made aware of this increase in his CRP, but decrease in his sedimentation rate, normal vital signs and normal white count. Just to err on the side of caution, I am going to give him two more weeks of IV antibiotics for a total of 6 weeks. She is in agreement. OBJECTIVE: VITAL SIGNS: He is afebrile, heart rate 74, respirations 20, oxygen saturation 100% on room air, and blood pressure 154/68. CARDIOVASCULAR: S1 and S2 plus. RESPIRATORY: Normal vesicular breath sounds. ABDOMEN: Soft, nontender. Bowel sounds heard in all quadrants. EXTREMITIES: Without cyanosis or clubbing. CENTRAL NERVOUS SYSTEM: Sleeping, but arousable, confused. IMPRESSION: 1. Methicillin-resistant Staphylococcus aureus infection of right hip, requiring removal and replacement of hardware. 2. Hypertension. 3. Coronary artery disease. 4. Atrial fibrillation. 5. Seizure disorder. 6. History of cerebrovascular accident. 7. Postherpetic neuralgia. 8. Cognitive dysfunction. PLAN: 1. Continue current medications. 2. Nutritional support. 3. DVT prophylaxis, he is already on Eliquis. 4. Decubitus precautions. 5. Stress ulcer prophylaxis. 6. Continue IV antibiotics. 7. Routine laboratory values. 8. Continue to monitor the patient closely. 9. The patient's has already arranged for him to go to long-term care facility once his antibiotics are done. Job ID: [id number]
[2018-12-10] MEDS: Lidocaine Patch Removal 1 EACH TOP SCH (21:40)
[2018-12-11] MEDS: Cefepime 1 GM in Sodium Chloride 0.9% 100 ML IVPB SCH ×2 (00:49→12:34)
[2018-12-11] MEDS: Vancomycin HCl 1 GM in Sodium Chloride 0.9% 250 ML 250 ML IVPB SCH ×2 (04:19→16:17)
[2018-12-11] MEDS ORDERED: Amlodipine 10 MG TAB ONE (05:38)
[2018-12-11] MEDS: Amlodipine 10 MG TAB PO SCH (05:57)
[2018-12-11] MEDS: Lidocaine 5% Patch TD SCH (09:10)
[2018-12-11] MEDS: Saccharomyces boulardii 250 MG CAP PO SCH ×2 (09:39→20:54)
[2018-12-11] MEDS: Acetaminophen 325 MG TAB PO PRN (09:39)
[2018-12-11] MEDS: levETIRAcetam 500 mg/5 ml Oral Solution PO SCH ×2 (09:39→20:53)
[2018-12-11] MEDS: Famotidine 20 MG TAB PO SCH (09:41)
[2018-12-11] MEDS: Aspirin 81 mg Enteric Coated Tablet PO SCH (09:42)
[2018-12-11] MEDS: Apixaban 2.5 MG TAB PO SCH ×2 (09:42→20:54)
[2018-12-11] MEDS: Atenolol 25 MG TAB PO SCH ×2 (09:42→20:54)
[2018-12-11] MEDS: Lisinopril 20 MG TAB PO SCH ×2 (09:43→20:54)
[2018-12-11] MEDS: Multivitamin W/ Minerals 1 TAB PO SCH (09:43)
--- NOTE | 2018-12-11 14:25 | PRG ---
DATE OF SERVICE: 12/11/2018 SUBJECTIVE: Mr. Salazar is sleeping and does not respond to any verbal stimuli. Discussed with nursing and they state that there is no significant change. No family at bedside. OBJECTIVE: VITAL SIGNS: He is afebrile. Heart rate 74, respirations 18, oxygen saturation 98% on room air, and blood pressure 120/67. CARDIOVASCULAR SYSTEM: S1 and S2 plus. RESPIRATORY SYSTEM: Normal vesicular breath sounds. ABDOMEN: Soft and nontender. Bowel sounds heard in all quadrants. EXTREMITIES: Without cyanosis or clubbing. CENTRAL NERVOUS SYSTEM: No change. IMPRESSION: 1. Methicillin-resistant Staphylococcus aureus infection to the hip, requiring removal and replacement of hardware. 2. Coronary artery disease. 3. Atrial fibrillation. 4. Seizure disorder. 5. History of cerebrovascular accident. 6. Postherpetic neuralgia. 7. Anemia of chronic disease. 8. Cognitive dysfunction and significant deconditioning. PLAN: 1. Continue current medications. 2. Nutritional support. 3. Seizure precautions. 4. DVT prophylaxis-the patient is on Eliquis. 5. Decubitus precautions. 6. Weekly CBC, CRP, CMP, and sedimentation rate. 7. Long-term care placement. 8. Poor prison prognosis, especially if his cognition does not improve, family is aware. Job ID: [id number]
[2018-12-12] MEDS: Lidocaine 5% Patch TD SCH (00:38)
[2018-12-12] MEDS: Cefepime 1 GM in Sodium Chloride 0.9% 100 ML IVPB SCH ×2 (00:39→12:48)
[2018-12-12] MEDS: Vancomycin HCl 1 GM in Sodium Chloride 0.9% 250 ML 250 ML IVPB SCH ×2 (04:08→15:56)
[2018-12-12] MEDS: Amlodipine 10 MG TAB PO SCH (05:39)
[2018-12-12] MEDS: levETIRAcetam 500 mg/5 ml Oral Solution PO SCH ×2 (09:05→21:11)
[2018-12-12] MEDS: Lisinopril 20 MG TAB PO SCH ×2 (09:06→21:12)
[2018-12-12] MEDS: Famotidine 20 MG TAB PO SCH (09:06)
[2018-12-12] MEDS: Multivitamin W/ Minerals 1 TAB PO SCH (09:06)
[2018-12-12] MEDS: Saccharomyces boulardii 250 MG CAP PO SCH ×2 (09:06→21:11)
[2018-12-12] MEDS: Apixaban 2.5 MG TAB PO SCH ×2 (09:06→21:12)
[2018-12-12] MEDS: Atenolol 25 MG TAB PO SCH ×2 (09:06→21:11)
[2018-12-12] MEDS: Aspirin 81 mg Enteric Coated Tablet PO SCH (09:06)
[2018-12-12] MEDS: Lidocaine Patch Removal 1 EACH TOP SCH (12:48)
--- NOTE | 2018-12-12 13:04 | PRG ---
DATE OF SERVICE: 12/12/2018 SUBJECTIVE: Mr. Salazar is awake, but not very verbal. His spouse is in the room. OBJECTIVE: VITAL SIGNS: He is afebrile. Heart rate 72, respirations 18, oxygen saturation 100% on room air, and blood pressure 147/65. CARDIOVASCULAR SYSTEM: S1 and S2 plus. RESPIRATORY SYSTEM: Normal vesicular breath sounds. ABDOMEN: Soft and nontender. Bowel sounds heard in all quadrants. EXTREMITIES: Without cyanosis or clubbing. CENTRAL NERVOUS SYSTEM: No change. Cognitive impairment. IMPRESSION: 1. Methicillin-resistant Staphylococcus aureus infection in the right hip, requiring removal and replacement of hardware. 2. Coronary artery disease. 3. Hypertension. 4. Atrial fibrillation. 5. Postherpetic neuralgia. 6. Seizure disorder. 7. History of cerebrovascular accident. 8. Hypokalemia, improving. 9. Mild hyponatremia. PLAN: 1. Check BMP in the morning. 2. Nutritional support. 3. DVT prophylaxis. He is on Eliquis. 4. Decubitus precautions. 5. Stress ulcer prophylaxis. 6. Continue IV antibiotics. 7. Discussed with spouse in detail. He is aware of the lack of progress clinically even with the antibiotics and controlling his infection. Long-term care placement arrangements have been done. Job ID: [id number]
[2018-12-13] MEDS: Lidocaine 5% Patch TD SCH (00:15)
[2018-12-13] MEDS: Cefepime 1 GM in Sodium Chloride 0.9% 100 ML IVPB SCH ×2 (00:15→12:41)
[2018-12-13] MEDS: Vancomycin HCl 1 GM in Sodium Chloride 0.9% 250 ML 250 ML IVPB SCH ×2 (04:27→16:19)
[2018-12-13] MEDS ORDERED: Amlodipine 5 MG TAB ONE (05:22)
[2018-12-13] MEDS: Amlodipine 5 MG TAB PO SCH (05:31)
[2018-12-13 05:55] LABS: Anion Gap 16 mmol/L (10-20); BUN (Urea Nitrogen) 11 mg/dL (8.4-25.7); Calc. Creatinine Clearance 76 mL/min (70-130); Calcium 9.7 mg/dL (7.8-10.44); Carbon Dioxide 34 mmol/L (23-31); Chloride 94 mmol/L (98-107); Estimated GFR-MDRD Greater than 90; Glucose 117 mg/dL (83-110); Potassium 3.7 mmol/L (3.5-5.1); Sodium 140 mmol/L (136-145)
[2018-12-13] MEDS: Aspirin 81 mg Enteric Coated Tablet PO SCH (09:18)
[2018-12-13] MEDS: Multivitamin W/ Minerals 1 TAB PO SCH (09:18)
[2018-12-13] MEDS: Saccharomyces boulardii 250 MG CAP PO SCH ×2 (09:18→21:47)
[2018-12-13] MEDS: Famotidine 20 MG TAB PO SCH (09:18)
[2018-12-13] MEDS: Lisinopril 20 MG TAB PO SCH ×2 (09:19→21:38)
[2018-12-13] MEDS: Apixaban 2.5 MG TAB PO SCH ×2 (09:19→21:38)
[2018-12-13] MEDS: Atenolol 25 MG TAB PO SCH ×2 (09:19→21:39)
[2018-12-13] MEDS: levETIRAcetam 500 mg/5 ml Oral Solution PO SCH ×2 (09:20→21:37)
[2018-12-13] MEDS: Lidocaine Patch Removal 1 EACH TOP SCH (12:41)
[2018-12-13] MEDS ORDERED: Potassium Chloride 20 MEQ TAB PO SCH (12:45)
--- NOTE | 2018-12-13 13:20 | PRG ---
DATE OF SERVICE: 12/13/2018 SUBJECTIVE: Mr. Salazar is lying in bed, grimacing. He apparently is not eating or responding to his spouse. She is in the room. She is aware that he is slowly declining and not getting better. He apparently is pocketing his foods. He apparently drank 1 can of Ensure this morning. OBJECTIVE: VITAL SIGNS: He is afebrile. Heart rate 76, respirations 20, oxygen saturation on room air, blood pressure 168/75. CARDIOVASCULAR: S1 and S2 plus. RESPIRATORY: Normal vesicular breath sounds. ABDOMEN: Soft, nontender. Bowel sounds are heard in all quadrants. EXTREMITIES: Without cyanosis or clubbing. CENTRAL NERVOUS SYSTEM: Awake, but confused. No change in his cognition. LABORATORY DATA: Sodium 133, potassium 3.3, BUN and creatinine are 15 and 0.63. IMPRESSION: 1. Hypokalemia. 2. Methicillin-resistant Staphylococcus aureus infection to right hip. 3. Coronary artery disease. 4. Atrial fibrillation. 5. Seizure disorder. 6. CVA. 7. Postherpetic neuralgia. PLAN: 1. Replace potassium. 2. Nutritional support. 3. Continue IV antibiotics. 4. Recheck CBC, CMP, CRP, and sedimentation rate tomorrow. 5. Poor manager terminal prognosis. 6. Spouse is aware and is going to place him on long-term care and is aware that he may even need hospice. Job ID: [id number]
[2018-12-13] MEDS: Acetaminophen 325 MG TAB PO PRN (21:39)
[2018-12-14] MEDS: Cefepime 1 GM in Sodium Chloride 0.9% 100 ML IVPB SCH ×2 (00:48→12:44)
[2018-12-14] MEDS: Lidocaine 5% Patch TD SCH (00:49)
[2018-12-14] MEDS: Vancomycin HCl 1 GM in Sodium Chloride 0.9% 250 ML 250 ML IVPB SCH ×2 (03:44→15:53)
[2018-12-14 05:37] LABS: #Basophils 0.1 thou/uL (0.0-0.2); #Eosinphils 0.3 thou/uL (0.0-0.7); #Monocytes 0.4 thou/uL (0.11-0.59); #Neutrophils 2.9 thou/uL (1.40-6.50); %Basophils 1.4 % (0.0-1.0); %Eosinophils 5.5 % (0.0-10.0); %Lymphocytes 20.9 % (21.0-51.0); %Monocytes 9.2 % (0.0-10.0); Hemoglobin 12.1 g/dL (14.0-18.0); Mean Corpuscular HGB CONC 31.2 g/dL (32.0-36.0); Mean Corpuscular Hemoglobin 26.6 pg (27.0-31.0); Mean Corpuscular Volume 85.3 fL (78.0-98.0); Mean Platelet Volume 5.9 fL (7.4-10.4); Platelet Count 252 thou/uL (130-400); RBC Distribution Width 13.2 % (11.5-14.5); Red Blood Cell (RBC) Count 4.57 mill/uL (4.70-6.10); White Blood Cell (WBC) Count 4.6 thou/uL (4.8-10.8)
[2018-12-14 05:52] LABS: ALT (SGPT) 16 U/L (8-55); AST (SGOT) 16 U/L (5-34); Albumin 3.5 g/dL (3.4-4.8); Alkaline Phosphatase 87 U/L (40-150); Anion Gap 15 mmol/L (10-20); BUN (Urea Nitrogen) 13 mg/dL (8.4-25.7); Bilirubin, Total 0.6 mg/dL (0.2-1.2); CRP (Inflammatory) 3.23 mg/dL (= or < 0.5); Calc. Creatinine Clearance 78 mL/min (70-130); Calcium 9.3 mg/dL (7.8-10.44); Carbon Dioxide 30 mmol/L (23-31); Chloride 96 mmol/L (98-107); Estimated GFR-MDRD Greater than 90; Globulin 2.8 g/dL (2.4-3.5); Glucose 115 mg/dL (83-110); Potassium 3.5 mmol/L (3.5-5.1); Protein, Total 6.3 g/dL (5.8-8.1); Sodium 137 mmol/L (136-145)
[2018-12-14] MEDS: Amlodipine 5 MG TAB PO SCH (06:06)
[2018-12-14] MEDS: Famotidine 20 MG TAB PO SCH (09:04)
[2018-12-14] MEDS: Apixaban 2.5 MG TAB PO SCH ×2 (09:04→20:30)
[2018-12-14] MEDS: levETIRAcetam 500 mg/5 ml Oral Solution PO SCH ×2 (09:04→20:30)
[2018-12-14] MEDS: Multivitamin W/ Minerals 1 TAB PO SCH (09:05)
[2018-12-14] MEDS: Aspirin 81 mg Enteric Coated Tablet PO SCH (09:05)
[2018-12-14] MEDS: Saccharomyces boulardii 250 MG CAP PO SCH ×2 (09:05→20:30)
[2018-12-14] MEDS: Atenolol 25 MG TAB PO SCH ×2 (09:05→20:30)
[2018-12-14] MEDS: Lisinopril 20 MG TAB PO SCH ×2 (09:06→20:30)
[2018-12-14] MEDS: Lidocaine Patch Removal 1 EACH TOP SCH (12:45)
--- NOTE | 2018-12-14 13:17 | PRG ---
DATE OF SERVICE: 12/14/2018 SUBJECTIVE: Mr. Salazar is an 83-year-old very pleasant male, who had herpes zoster ophthalmicus. Initially, he was admitted to the hospital and then transferred to inpatient rehab, where he had aspiration pneumonia. Transferred back to the acute care hospital and then was stabilized. He was discharged back to rehab hospital, where unfortunately fell and sustained a right hip fracture. He went back to the hospital and had surgical correction, but developed fever and chills. He ended up having bacteremia growing MRSA. Eventually that was treated and he had his hip washed out. He had recurrent infections and he went back to the OR, where his hardware was removed. He had another washout, new hardware was placed. Now finished his IV antibiotics and here basically for physical therapy and occupational therapy. Most recently, he has had a downturn, where he has gotten much weaker and less responsive and less able to eat. He is on pureed food at this time. The patient's is in the room today. She states he is having much better today, and he is a little bit more alert since I walked in. He responds to questions and tries to answer them. PHYSICAL EXAMINATION: VITAL SIGNS: Revealed blood pressure somewhat elevated this morning at 180/73, pulse 63 to 75, respirations 20, O2 saturation 100% on room air, and T-max is 98.5. GENERAL: This is a well-developed, well-nourished, very pleasant white male, who is awake and answering some questions at this time. His is at bedside. HEENT: Reveals normocephalic and nontraumatic cranium. Pupils are equally round and reactive. Extraocular movements intact. Nose and throat are dry. NECK: Supple without masses, nodes, or bruits. CHEST: Clear to auscultation. No rales, rhonchi, or wheezes are heard. HEART: Reveals a regular rate and rhythm without murmurs, gallops, or rubs. ABDOMEN: Soft, nontender, and somewhat scaphoid. No rebound or guarding is noted. GENITOURINARY: Deferred. EXTREMITIES: Revealed no clubbing or cyanosis, and no edema is noted. LABORATORY DATA: Laboratory today reveals white count 4600 with hemoglobin 12.1, hematocrit 39.0, and platelet count 252,000. Sedimentation rate is increased at this time from 30 to 65. Sodium is 137; potassium 3.5; chloride 96, which is improving; carbon dioxide 30 with a BUN of 13; creatinine of 0.63; and GFR greater than 90. The patient's sugar this morning was 115. C-reactive protein is down from 11.61 down to 3.23. Last vancomycin trough was 20.8. ASSESSMENT: 1. Methicillin-resistant Staphylococcus aureus of the right hip, requiring removal and replacement of hardware. 2. Hypertension. 3. Atrial fibrillation. 4. Coronary artery disease. 5. History of cerebrovascular accident. 6. Postherpetic neuralgia. 7. Generalized weakness. PLAN: 1. Continue to monitor the patient's blood pressure. 2. Lisinopril was recently increased and amlodipine was added. 3. Continue present IV antibiotics. 4. Weekly CBC, CRP, CMP, and sed rate. 5. Nutritional support. 6. Orthopedic precautions. 7. Continue to monitor the patient's heart rate and rhythm. 8. We did discuss the patient's poor prognosis with the spouse, but she is very upbeat and optimistic today. Job ID: [id number]
[2018-12-14 15:20] LABS: Vancomycin, Trough 18.5 ug/mL
[2018-12-15] MEDS: Lidocaine 5% Patch TD SCH (00:09)
[2018-12-15] MEDS: Cefepime 1 GM in Sodium Chloride 0.9% 100 ML IVPB SCH ×2 (00:09→12:50)
[2018-12-15] MEDS ORDERED: Sodium Chloride 0.9% 10 ML ONE (00:10)
[2018-12-15] MEDS: Vancomycin HCl 1 GM in Sodium Chloride 0.9% 250 ML 250 ML IVPB SCH ×2 (04:26→16:55)
[2018-12-15] MEDS: Amlodipine 5 MG TAB PO SCH (05:14)
--- NOTE | 2018-12-15 08:35 | PRG ---
DATE OF SERVICE: 12/15/2018 SUBJECTIVE: Mr. Salazar is a pleasant 83-year-old white male who unfortunately had herpes zoster ophthalmicus. Initially was admitted to the hospital, then transferred to inpatient rehab where he had aspiration pneumonia and had to be transferred back to the acute care hospital. He was treated and stabilized and discharged back to the rehab hospital, where unfortunately he fell and sustained a right hip fracture. He had to be transferred back to the acute care hospital for surgical corrections, but developed fever and chills and end up with growing MRSA. He had to have his hip washed out and went back to the OR, where his hardware was removed. He then had a second hip washout and new hardware was placed. He finished his antibiotics and basically he is here for PT and OT. Recently, he has not been doing very well. He has gotten much weaker and less responsive and eating less. He is pureed food at this time. The patient is awakened this morning. He is actually very pleasant and has no complaints. He does have a Lidoderm patch over his left scalp, where his zoster was in the past. OBJECTIVE: VITAL SIGNS: Today reveal blood pressure 179/86, pulse 80, respirations 20, O2 saturation 96% on room air. T-max 98.4. GENERAL: This is a well-developed, well-nourished, very pleasant, thin white male, in no apparent distress at this time. HEENT: Reveals normocephalic and nontraumatic cranium. Pupils are equal, round, reactive. Extraocular movements are intact. Nose and throat are dry. NECK: Supple without masses, nodes, or bruits. CHEST: Clear to auscultation. No rales, no rhonchi, no wheezes are heard. HEART: Reveals a regular rate and rhythm without murmurs, gallops or rubs. ABDOMEN: Scaphoid, soft, nontender without organomegaly. No rebound or guarding is noted. : Exam is deferred. EXTREMITIES: Reveal no clubbing, cyanosis, and no edema is noted. ASSESSMENT: 1. Hypertension. 2. Atrial fibrillation. 3. Coronary artery disease. 4. History of cerebrovascular accident. 5. Postoperative neuralgia. 6. Malnutrition secondary to poor protein intake. 7. Poor oral intake. 8. History of methicillin-resistant staphylococcus aureus to the right hip requiring removal and placement of hardware. 9. Generalized weakness. PLAN: 1. Continue supportive care. 2. Continue to monitor the patient's blood pressure. 3. Continue present medications. 4. Weekly CBC, CRP, CMP, and sedimentation rate. 5. Nutritional support. 6. Orthopedic precautions. 7. Continue to monitor the patient's heart rate and rhythm. 8. The patient has a poor prognosis, the patient is aware of that. Job ID: [id number]
[2018-12-15] MEDS: Saccharomyces boulardii 250 MG CAP PO SCH ×2 (09:47→20:46)
[2018-12-15] MEDS: levETIRAcetam 500 mg/5 ml Oral Solution PO SCH ×2 (09:48→20:45)
[2018-12-15] MEDS: Famotidine 20 MG TAB PO SCH (09:48)
[2018-12-15] MEDS: Multivitamin W/ Minerals 1 TAB PO SCH (09:48)
[2018-12-15] MEDS: Atenolol 25 MG TAB PO SCH ×2 (09:49→20:46)
[2018-12-15] MEDS: Apixaban 2.5 MG TAB PO SCH ×2 (09:49→20:46)
[2018-12-15] MEDS: Lisinopril 20 MG TAB PO SCH ×2 (09:50→20:45)
[2018-12-15] MEDS: Aspirin 81 mg Enteric Coated Tablet PO SCH (09:50)
[2018-12-15] MEDS: Lidocaine Patch Removal 1 EACH TOP SCH (12:51)
[2018-12-16] MEDS: Lidocaine 5% Patch TD SCH (00:20)
[2018-12-16] MEDS: Cefepime 1 GM in Sodium Chloride 0.9% 100 ML IVPB SCH ×2 (00:20→12:34)
[2018-12-16] MEDS: Vancomycin HCl 1 GM in Sodium Chloride 0.9% 250 ML 250 ML IVPB SCH ×2 (03:32→16:05)
[2018-12-16] MEDS: Amlodipine 5 MG TAB PO SCH (05:38)
--- NOTE | 2018-12-16 09:51 | PRG ---
DATE OF SERVICE: 12/16/2018 SUBJECTIVE: Mr. Salazar is a very pleasant 83-year-old white male, who does not look his age. Unfortunately, he had herpes zoster ophthalmicus. He was initially admitted to the hospital, but transferred to inpatient rehab where he developed some aspiration pneumonia. He had to be transferred back to the acute [facility] hospital and treated and stabilized. He was discharged back to the rehab hospital, where unfortunately he fell and sustained a right hip fracture. At that time, he was transferred back to the acute [facility] hospital for surgical correction, but developed fever and chills, ended up with growing an MRSA in his hip. He had to have his hip washed out, so went back to the ER for that. His hardware was removed and then he had a second hip washout and new hardware placed. He finished his antibiotics and basically was transferred to inpatient skilled here at [facility] for physical therapy and occupational therapy. He has been doing very well, but unfortunately is getting a little weaker. This morning, he was wide awake and able to answer my questions and very focused. He had no complaints this morning. OBJECTIVE: VITAL SIGNS: This morning reveal blood pressure 170/74, pulse 70, respirations 20, O2 saturations of 97% on room air, T-max 98.8. GENERAL: This is a well-developed, well-nourished, very thin, white male, in no apparent distress at this time. HEENT: Normocephalic and nontraumatic cranium. Pupils are equal, round, and reactive. Extraocular movements are intact. Nose and throat are still dry. NECK: Supple without masses, nodes, or bruits. CHEST: Clear to auscultation. No rales, rhonchi, or wheezes are heard. HEART: Reveals a regular rate and rhythm without murmurs, gallops, or rubs. ABDOMEN: Soft, nontender without organomegaly. Normal bowel sounds are noted. No rebound or guarding is noted. : Deferred. EXTREMITIES: Reveal no clubbing, cyanosis, or edema. Early contractures are noted. ASSESSMENT: 1. Hypertension. 2. Atrial fibrillation. 3. Coronary artery disease. 4. History of CVA. 5. Postoperative neuralgia. 6. Malnutrition secondary to poor protein intake. 7. Poor oral intake. 8. History of methicillin-resistant Staphylococcus aureus to the right hip requiring removal and replacement of hardware. 9. Generalized weakness. PLAN: 1. Continue to monitor the patient's blood pressure closely. 2. Continue present medications. 3. Weekly CBC, CRP, CMP, and sedimentation rate. 4. Nutritional support. 5. Orthopedic precautions. 6. Continue to monitor the patient's heart rate closely. 7. Continue supportive care. 8. The patient has poor prognosis because he seems to be dwindling. Job ID: [id number]
[2018-12-16] MEDS: Saccharomyces boulardii 250 MG CAP PO SCH ×2 (09:55→21:40)
[2018-12-16] MEDS: Aspirin 81 mg Enteric Coated Tablet PO SCH (09:55)
[2018-12-16] MEDS: Lisinopril 20 MG TAB PO SCH ×2 (09:55→21:40)
[2018-12-16] MEDS: Apixaban 2.5 MG TAB PO SCH ×2 (09:55→21:40)
[2018-12-16] MEDS: levETIRAcetam 500 mg/5 ml Oral Solution PO SCH ×2 (09:55→21:40)
[2018-12-16] MEDS: Atenolol 25 MG TAB PO SCH ×2 (09:55→21:40)
[2018-12-16] MEDS: Famotidine 20 MG TAB PO SCH (09:55)
[2018-12-16] MEDS: Multivitamin W/ Minerals 1 TAB PO SCH (09:55)
[2018-12-16] MEDS: Lidocaine Patch Removal 1 EACH TOP SCH (12:14)
[2018-12-17] MEDS: Lidocaine 5% Patch TD SCH (00:50)
[2018-12-17] MEDS: Cefepime 1 GM in Sodium Chloride 0.9% 100 ML IVPB SCH ×2 (00:50→11:56)
[2018-12-17] MEDS: Vancomycin HCl 1 GM in Sodium Chloride 0.9% 250 ML 250 ML IVPB SCH ×2 (04:46→16:53)
[2018-12-17 05:49] LABS: Hemoglobin 10.5 g/dL (14.0-18.0); Platelet Count 212 thou/uL (130-400)
[2018-12-17 06:01] LABS: Anion Gap 14 mmol/L (10-20); BUN (Urea Nitrogen) 16 mg/dL (8.4-25.7); Calc. Creatinine Clearance 68 mL/min (70-130); Carbon Dioxide 30 mmol/L (23-31); Chloride 99 mmol/L (98-107); Estimated GFR-MDRD Greater than 90; Glucose 112 mg/dL (83-110); Potassium 3.8 mmol/L (3.5-5.1); Sodium 139 mmol/L (136-145)
[2018-12-17] MEDS ORDERED: Amlodipine 5 MG TAB ONE (07:30)
[2018-12-17] MEDS: Amlodipine 5 MG TAB PO SCH (07:34)
[2018-12-17] MEDS: Apixaban 2.5 MG TAB PO SCH ×2 (09:12→20:37)
[2018-12-17] MEDS: Atenolol 25 MG TAB PO SCH ×2 (09:12→20:37)
[2018-12-17] MEDS: Aspirin 81 mg Enteric Coated Tablet PO SCH (09:12)
[2018-12-17] MEDS: levETIRAcetam 500 mg/5 ml Oral Solution PO SCH ×2 (09:13→20:38)
[2018-12-17] MEDS: Famotidine 20 MG TAB PO SCH (09:13)
[2018-12-17] MEDS: Lisinopril 20 MG TAB PO SCH ×2 (09:13→20:38)
[2018-12-17] MEDS: Saccharomyces boulardii 250 MG CAP PO SCH ×2 (09:15→20:37)
[2018-12-17] MEDS: Multivitamin W/ Minerals 1 TAB PO SCH (09:15)
[2018-12-17] MEDS: Lidocaine Patch Removal 1 EACH TOP SCH (11:57)
--- NOTE | 2018-12-17 15:12 | PRG ---
DATE OF SERVICE: 12/17/2018 SUBJECTIVE: Mr. Salazar apparently refused to take any of his pills this morning. He is sleeping. His is in the room. She states that he has been somnolent most of the day. She is aware that the patient is not improving. She understands that the p.o. intake is critical. He is right now wanting pureed diet with nectar thick liquids. She does not again want any feeding tube. OBJECTIVE: VITAL SIGNS: He is afebrile, heart rate 67, respirations 18, oxygen saturation 94% on room air, and blood pressure 164/68. CARDIOVASCULAR SYSTEM: S1 and S2 plus. RESPIRATORY SYSTEM: Normal vesicular breath sounds. ABDOMEN: Soft, nontender. Bowel sounds heard in all quadrants. EXTREMITIES: Without cyanosis or clubbing. CENTRAL NERVOUS SYSTEM: No change. LABORATORY VALUES: His H and H are 10.5 and 33.5. Sodium 137, potassium 3.5, BUN and creatinine are 13 and 0.63. CRP is down to 3.23. This was on the . IMPRESSION: 1. Methicillin-resistant Staphylococcus aureus infection in the right hip, requiring removal and replacement of hardware. 2. Coronary artery disease. 3. Atrial fibrillation. 4. Postherpetic neuralgia. 5. Seizure disorder. 6. History of cerebrovascular accident. 7. Dysphagia and cognitive deficits with poor p.o. intake. PLAN: 1. Continue IV antibiotics until the . 2. Nutritional support with aspiration precautions. 3. Continue current medications when he is able to swallow in a week enough. 4. DVT prophylaxis - the patient is on Eliquis. 5. Seizure precautions. 6. Poor long-term prognosis. 7. We will again broach the subject of hospice to his spouse tomorrow. Job ID: [id number]
[2018-12-18] MEDS: Cefepime 1 GM in Sodium Chloride 0.9% 100 ML IVPB SCH ×2 (01:03→12:41)
[2018-12-18] MEDS: Lidocaine 5% Patch TD SCH (01:04)
[2018-12-18] MEDS: Vancomycin HCl 1 GM in Sodium Chloride 0.9% 250 ML 250 ML IVPB SCH ×2 (04:46→15:46)
[2018-12-18] MEDS: Amlodipine 5 MG TAB PO SCH (05:30)
[2018-12-18] MEDS: Aspirin 81 mg Enteric Coated Tablet PO SCH (08:53)
[2018-12-18] MEDS: Famotidine 20 MG TAB PO SCH (08:53)
[2018-12-18] MEDS: Apixaban 2.5 MG TAB PO SCH ×2 (08:53→21:29)
[2018-12-18] MEDS: Saccharomyces boulardii 250 MG CAP PO SCH ×2 (08:53→21:28)
[2018-12-18] MEDS: Multivitamin W/ Minerals 1 TAB PO SCH (08:53)
[2018-12-18] MEDS: levETIRAcetam 500 mg/5 ml Oral Solution PO SCH ×2 (08:53→21:28)
[2018-12-18] MEDS: Lisinopril 20 MG TAB PO SCH ×2 (08:53→21:29)
[2018-12-18] MEDS: Atenolol 25 MG TAB PO SCH ×2 (08:53→21:29)
[2018-12-18] MEDS: Lidocaine Patch Removal 1 EACH TOP SCH (12:42)
--- NOTE | 2018-12-18 14:11 | PRG ---
DATE OF SERVICE: 12/18/2018 SUBJECTIVE: Mr. Salazar is sleeping. He does not really respond to any verbal stimuli. His lunch is barely touched. Discussed with nursing. OBJECTIVE: VITAL SIGNS: He is afebrile, heart rate 75, respirations 20, oxygen saturation 100% on room air, blood pressure 143/70. CARDIOVASCULAR: S1 and S2 plus. RESPIRATORY: Normal vesicular breath sounds. ABDOMEN: Soft, nontender. Bowel sounds heard in all quadrants. EXTREMITIES: Without cyanosis or clubbing. CENTRAL NERVOUS SYSTEM: No change. IMPRESSION: 1. Infection of the right hip status post removal and replacement of hardware. 2. Coronary artery disease. 3. Atrial fibrillation. 4. Hypertension. 5. History of cerebrovascular accident. 6. Postherpetic neuralgia. 7. Seizure disorder. 8. Dysphagia. PLAN: 1. Continue current medications. When the patient is awaken, have to take them. 2. Continue antibiotics until the 31. 3. Poor group home prognosis. Daughter, his , and son are aware. 4. DVT prophylaxis. The patient is on Eliquis. 5. Seizure precautions. 6. Discharge planning. Job ID: [id number]
[2018-12-18] MEDS: Acetaminophen 325 MG TAB PO PRN (21:28)
[2018-12-19] MEDS: Lidocaine 5% Patch TD SCH (00:53)
[2018-12-19] MEDS: Cefepime 1 GM in Sodium Chloride 0.9% 100 ML IVPB SCH ×2 (00:53→12:51)
[2018-12-19] MEDS: Vancomycin HCl 1 GM in Sodium Chloride 0.9% 250 ML 250 ML IVPB SCH ×2 (04:23→16:15)
[2018-12-19] MEDS: Amlodipine 5 MG TAB PO SCH (05:45)
[2018-12-19] MEDS: levETIRAcetam 500 mg/5 ml Oral Solution PO SCH ×2 (09:36→21:46)
[2018-12-19] MEDS: Apixaban 2.5 MG TAB PO SCH ×2 (09:36→21:47)
[2018-12-19] MEDS: Famotidine 20 MG TAB PO SCH (09:38)
[2018-12-19] MEDS: Aspirin 81 mg Enteric Coated Tablet PO SCH (09:38)
[2018-12-19] MEDS: Lisinopril 20 MG TAB PO SCH ×2 (09:39→21:47)
[2018-12-19] MEDS: Multivitamin W/ Minerals 1 TAB PO SCH (09:39)
[2018-12-19] MEDS: Saccharomyces boulardii 250 MG CAP PO SCH ×2 (09:39→21:47)
[2018-12-19] MEDS: Atenolol 25 MG TAB PO SCH ×2 (09:40→21:46)
[2018-12-19] MEDS: Lidocaine Patch Removal 1 EACH TOP SCH (12:36)
--- NOTE | 2018-12-19 13:25 | PRG ---
DATE OF SERVICE: 12/19/2018 He is in [facility] room #141. SUBJECTIVE: Mr. Salazar is awake and responsive this afternoon. His spouse is in the room. He is on a pureed diet. His p.o. intake is still fluctuating. Spouse still wants to take him to [facility]. She is aware of his prognosis given his cognitive status. She again does not want any aggressive treatment including feeding tube or artificial means of feeding. OBJECTIVE: VITAL SIGNS: He is afebrile, heart rate 59, respirations 18, oxygen saturation 98% on room air, and blood pressure 145/70. CARDIOVASCULAR SYSTEM: S1 and S2 plus. RESPIRATORY SYSTEM: Normal vesicular breath sounds. ABDOMEN: Soft and nontender. Bowel sounds heard in all quadrants. EXTREMITIES: Without cyanosis or clubbing. CENTRAL NERVOUS SYSTEMS: Awake, but confused. No change. IMPRESSION: 1. Methicillin-resistant Staphylococcus aureus infection to right hip, requiring removal and replacement hardware. 2. Hypertension. 3. Coronary artery disease. 4. Atrial fibrillation. 5. History of cerebrovascular accident. 6. Postherpetic neuralgia. 7. Seizure disorder. 8. Dysphagia. 9. Cognitive deficits. PLAN: 1. Continue current medications. 2. Nutritional support. 3. Aspiration precautions. 4. DVT prophylaxis - the patient is on Eliquis. 5. Seizure precaution. 6. Finish antibiotics on the . 7. Recheck weekly labs tomorrow. 8. Discussed with in detail. All questions answered. Job ID: [id number]
[2018-12-20] MEDS: Cefepime 1 GM in Sodium Chloride 0.9% 100 ML IVPB SCH ×2 (00:56→13:39)
[2018-12-20] MEDS: Lidocaine 5% Patch TD SCH (00:56)
[2018-12-20] MEDS: Vancomycin HCl 1 GM in Sodium Chloride 0.9% 250 ML 250 ML IVPB SCH ×2 (04:23→16:10)
[2018-12-20 05:54] LABS: #Basophils 0.1 thou/uL (0.0-0.2); #Eosinphils 0.3 thou/uL (0.0-0.7); #Lymphocytes 1.1 thou/uL (1.20-3.40); #Monocytes 0.4 thou/uL (0.11-0.59); #Neutrophils 2.7 thou/uL (1.40-6.50); %Eosinophils 6.3 % (0.0-10.0); %Lymphocytes 23.8 % (21.0-51.0); %Monocytes 9.4 % (0.0-10.0); %Neutrophils 58.6 % (42.0-75.0); Hemoglobin 12.6 g/dL (14.0-18.0); Mean Corpuscular HGB CONC 31.9 g/dL (32.0-36.0); Mean Corpuscular Hemoglobin 26.8 pg (27.0-31.0); Mean Corpuscular Volume 84.1 fL (78.0-98.0); Mean Platelet Volume 6.4 fL (7.4-10.4); Platelet Count 239 thou/uL (130-400); RBC Distribution Width 13.5 % (11.5-14.5); Red Blood Cell (RBC) Count 4.68 mill/uL (4.70-6.10); White Blood Cell (WBC) Count 4.6 thou/uL (4.8-10.8)
[2018-12-20 06:12] LABS: ALT (SGPT) 18 U/L (8-55); AST (SGOT) 16 U/L (5-34); Albumin 3.7 g/dL (3.4-4.8); Alkaline Phosphatase 99 U/L (40-150); Anion Gap 16 mmol/L (10-20); BUN (Urea Nitrogen) 10 mg/dL (8.4-25.7); Bilirubin, Total 0.7 mg/dL (0.2-1.2); CRP (Inflammatory) 0.51 mg/dL (= or < 0.5); Calc. Creatinine Clearance 66 mL/min (70-130); Calcium 9.6 mg/dL (7.8-10.44); Carbon Dioxide 27 mmol/L (23-31); Chloride 98 mmol/L (98-107); Estimated GFR-MDRD Greater than 90; Glucose 114 mg/dL (83-110); Potassium 4.2 mmol/L (3.5-5.1); Protein, Total 6.7 g/dL (5.8-8.1); Sodium 137 mmol/L (136-145)
[2018-12-20] MEDS: Amlodipine 5 MG TAB PO SCH (06:14)
[2018-12-20] MEDS: levETIRAcetam 500 mg/5 ml Oral Solution PO SCH ×2 (09:29→21:18)
[2018-12-20] MEDS: Apixaban 2.5 MG TAB PO SCH ×2 (09:30→21:19)
[2018-12-20] MEDS: Aspirin 81 mg Enteric Coated Tablet PO SCH (09:30)
[2018-12-20] MEDS: Saccharomyces boulardii 250 MG CAP PO SCH ×2 (09:31→21:19)
[2018-12-20] MEDS: Famotidine 20 MG TAB PO SCH (09:31)
[2018-12-20] MEDS: Multivitamin W/ Minerals 1 TAB PO SCH (09:31)
[2018-12-20] MEDS: Atenolol 25 MG TAB PO SCH ×2 (09:32→21:19)
[2018-12-20] MEDS: Lisinopril 20 MG TAB PO SCH ×2 (09:33→21:20)
[2018-12-20] MEDS: Lidocaine Patch Removal 1 EACH TOP SCH (12:56)
--- NOTE | 2018-12-20 14:04 | PRG ---
DATE OF SERVICE: 12/20/2018 SUBJECTIVE: Mr. Salazar is resting in bed, arouses to verbal commands. Cognitive function is the same. is not in the room. OBJECTIVE: VITAL SIGNS: He is afebrile, heart rate 85, respirations 18, oxygen saturation 98% on room air, and blood pressure 142/72. CARDIOVASCULAR SYSTEM: S1 and S2 plus. RESPIRATORY SYSTEM: Normal vesicular breath sounds. ABDOMEN: Soft, nontender. Bowel sounds heard in all quadrants. EXTREMITIES: Without cyanosis or clubbing. CENTRAL NERVOUS SYSTEM: No change. Still with significant deconditioning and cognitive dysfunction. LABORATORY VALUES: Done, show a white count of 4.6, H and H are 12.6 and 39.4. Sedimentation rate is down to 42. Sodium 137, potassium 4.2, BUN and creatinine are 10 and 0.67 with CRP down to 0.51. IMPRESSION: 1. Methicillin-resistant Staphylococcus aureus infection of the right hip, requiring removal and replacement of hardware. Currently, his inflammatory markers are pretty much back to normal after 6 weeks of IV antibiotics with no improvement in his cognitive dysfunction or his functional status. 2. Coronary artery disease. 3. Atrial fibrillation. 4. Seizure disorder. 5. History of cerebrovascular accident. 6. Postherpetic neuralgia. 7. Significant cognitive dysfunction. 8. Dysphagia, requiring pureed diet and fluctuating p.o. intake. 9. Family does not want any aggressive treatment, and he is a DNR. PLAN: 1. Continue IV antibiotics until the . 2. Discharge to long-term care. 3. Nutritional support with aspiration precautions. 4. DVT prophylaxis - the patient is on Eliquis. 5. Seizure precautions. 6. Poor-exterminator termite prognosis. Job ID: [id number]
[2018-12-20 15:29] LABS: Vancomycin, Trough 23.6 ug/mL
[2018-12-21] MEDS: Lidocaine 5% Patch TD SCH (00:18)
[2018-12-21] MEDS: Cefepime 1 GM in Sodium Chloride 0.9% 100 ML IVPB SCH ×2 (00:18→12:51)
[2018-12-21] MEDS: Vancomycin HCl 1 GM in Sodium Chloride 0.9% 250 ML 250 ML IVPB SCH ×2 (04:13→16:17)
[2018-12-21] MEDS: Amlodipine 5 MG TAB PO SCH (05:23)
[2018-12-21] MEDS: levETIRAcetam 500 mg/5 ml Oral Solution PO SCH ×2 (09:26→21:39)
[2018-12-21] MEDS: Apixaban 2.5 MG TAB PO SCH ×2 (09:27→21:39)
[2018-12-21] MEDS: Famotidine 20 MG TAB PO SCH (09:27)
[2018-12-21] MEDS: Multivitamin W/ Minerals 1 TAB PO SCH (09:27)
[2018-12-21] MEDS: Aspirin 81 mg Enteric Coated Tablet PO SCH (09:27)
[2018-12-21] MEDS: Atenolol 25 MG TAB PO SCH ×2 (09:28→21:40)
[2018-12-21] MEDS: Saccharomyces boulardii 250 MG CAP PO SCH ×2 (09:28→21:40)
[2018-12-21] MEDS: Lisinopril 20 MG TAB PO SCH ×2 (09:29→21:39)
[2018-12-21] MEDS: Lidocaine Patch Removal 1 EACH TOP SCH (12:28)
[2018-12-22] MEDS: Lidocaine 5% Patch TD SCH (00:10)
[2018-12-22] MEDS: Cefepime 1 GM in Sodium Chloride 0.9% 100 ML IVPB SCH ×2 (00:10→12:28)
[2018-12-22] MEDS: Vancomycin HCl 1 GM in Sodium Chloride 0.9% 250 ML 250 ML IVPB SCH ×2 (04:07→15:19)
[2018-12-22] MEDS: Amlodipine 5 MG TAB PO SCH (06:01)
[2018-12-22] MEDS: Famotidine 20 MG TAB PO SCH (09:07)
[2018-12-22] MEDS: Saccharomyces boulardii 250 MG CAP PO SCH ×2 (09:07→21:17)
[2018-12-22] MEDS: levETIRAcetam 500 mg/5 ml Oral Solution PO SCH ×2 (09:07→21:16)
[2018-12-22] MEDS: Aspirin 81 mg Enteric Coated Tablet PO SCH (09:08)
[2018-12-22] MEDS: Apixaban 2.5 MG TAB PO SCH ×2 (09:08→21:16)
[2018-12-22] MEDS: Lisinopril 20 MG TAB PO SCH ×2 (09:08→21:21)
[2018-12-22] MEDS: Multivitamin W/ Minerals 1 TAB PO SCH (09:08)
[2018-12-22] MEDS: Atenolol 25 MG TAB PO SCH ×2 (09:08→21:17)
[2018-12-22] MEDS: Lidocaine Patch Removal 1 EACH TOP SCH (12:28)
--- NOTE | 2018-12-22 15:08 | PRG ---
DATE OF SERVICE: 12/22/2018 SUBJECTIVE: Mr. Salazar is doing the same. His spouse is in the room. The plan is for him to go to [facility] long[facility]term care on Monday. Papers for trip insurance for him who will be unable to make it on some trip in January signed. OBJECTIVE: VITAL SIGNS: He is afebrile. Heart rate 71, respirations 18, oxygen saturation 97% on room air, blood pressure 168/71. CARDIOVASCULAR SYSTEM: S1 and S2 plus. RESPIRATORY SYSTEMS: Normal vesicular breath sounds. ABDOMEN: Soft and nontender. Bowel sounds heard in all quadrants. EXTREMITIES: Without cyanosis or clubbing. CENTRAL NERVOUS SYSTEM: No change. Still with cognitive deficits and hyperesthesia. IMPRESSION: 1. Methicillin-resistant Staphylococcus aureus infection to right hip, status post removal and replacement of hardware. Now recently completed 6 weeks of IV antibiotics. His inflammatory markers are almost within normal limits, but he continues to have his persistent cognitive deficits and inability to participate in any therapy. 2. Atrial fibrillation. 3. Coronary artery disease. 4. Hypertension. 5. Postherpetic neuralgia. 6. Seizure disorder. 7. History of cerebrovascular accident. PLAN: 1. Continue current medications. 2. Nutritional support with aspiration precautions. 3. Long-term care placement. 4. Poor intermediate prognosis. 5. Monitor for aspiration. 6. DVT and stress ulcer prophylaxis. 7. Decubitus precautions. 8. Discussed with spouse in detail. All questions answered. Job ID: [id number]
[2018-12-23] MEDS: Lidocaine 5% Patch TD SCH (00:43)
[2018-12-23 00:50] VITALS: BMI 19.5
[2018-12-23] MEDS: Amlodipine 5 MG TAB PO SCH (06:03)
[2018-12-23] MEDS: Saccharomyces boulardii 250 MG CAP PO SCH ×2 (09:15→20:52)
[2018-12-23] MEDS: Multivitamin W/ Minerals 1 TAB PO SCH (09:15)
[2018-12-23] MEDS: Atenolol 25 MG TAB PO SCH ×2 (09:16→20:52)
[2018-12-23] MEDS: Apixaban 2.5 MG TAB PO SCH ×2 (09:16→20:53)
[2018-12-23] MEDS: Famotidine 20 MG TAB PO SCH (09:16)
[2018-12-23] MEDS: Aspirin 81 mg Enteric Coated Tablet PO SCH (09:16)
[2018-12-23] MEDS: levETIRAcetam 500 mg/5 ml Oral Solution PO SCH ×2 (09:16→20:53)
[2018-12-23] MEDS: Lisinopril 20 MG TAB PO SCH ×2 (09:16→20:52)
[2018-12-23] MEDS: Lidocaine Patch Removal 1 EACH TOP SCH (12:10)
--- NOTE | 2018-12-23 15:45 | PRG ---
DATE OF SERVICE: 12/23/2018 SUBJECTIVE: Mr. Salazar is sleeping in bed and does not respond to any verbal stimuli. Nursing states that there is no change. His spouse is not in the room. OBJECTIVE: VITAL SIGNS: He is afebrile, heart rate 70, respirations 18, oxygen saturation 98% on room air, and blood pressure was 159/67. CARDIOVASCULAR SYSTEM: S1 and S2 plus. RESPIRATORY SYSTEM: Normal vesicular breath sounds. ABDOMEN: Soft and nontender. Bowel sounds heard in all quadrants. EXTREMITIES: Without cyanosis or clubbing. CENTRAL NERVOUS SYSTEM: No change. IMPRESSION: 1. Methicillin-resistant Staphylococcus aureus infection of the right hip, has completed IV antibiotics. 2. Coronary artery disease. 3. Atrial fibrillation. 4. Seizure disorder. 5. Hypertension. 6. Postherpetic neuralgia. 7. History of cerebrovascular accident. 8. Significant cognitive deficits and deconditioning. 9. Dysphagia with fluctuating p.o. intake. Family does not want percutaneous endoscopic gastrostomy tube or any artificial means of feeding. PLAN: 1. Continue current medications. 2. Discontinue PICC line. 3. DVT prophylaxis - the patient is on Eliquis. 4. Decubitus precautions. 5. Stress ulcer prophylaxis. 6. Routine laboratory values. 7. Discharge planning. Plan is to transfer him to [facility] on Monday. 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 Job ID: [id number]
[2018-12-24] MEDS: Lidocaine 5% Patch TD SCH (00:10)
[2018-12-24 05:29] LABS: Platelet Count 210 thou/uL (130-400)
[2018-12-24 05:46] LABS: Calc. Creatinine Clearance 59 mL/min (70-130); Estimated GFR-MDRD Greater than 90
[2018-12-24] MEDS: Amlodipine 5 MG TAB PO SCH (05:56)
[2018-12-24] MEDS: Multivitamin W/ Minerals 1 TAB PO SCH (09:53)
[2018-12-24] MEDS: Saccharomyces boulardii 250 MG CAP PO SCH ×2 (09:53→21:02)
[2018-12-24] MEDS: levETIRAcetam 500 mg/5 ml Oral Solution PO SCH ×2 (09:53→21:02)
[2018-12-24] MEDS: Atenolol 25 MG TAB PO SCH ×2 (09:54→21:03)
[2018-12-24] MEDS: Apixaban 2.5 MG TAB PO SCH ×2 (09:54→21:03)
[2018-12-24] MEDS: Famotidine 20 MG TAB PO SCH (09:54)
[2018-12-24] MEDS: Aspirin 81 mg Enteric Coated Tablet PO SCH (09:54)
[2018-12-24] MEDS: Lisinopril 20 MG TAB PO SCH ×2 (09:55→21:02)
[2018-12-24] MEDS: Lidocaine Patch Removal 1 EACH TOP SCH (12:27)
[2018-12-25] MEDS: Lidocaine 5% Patch TD SCH (01:24)
[2018-12-25] MEDS: Amlodipine 5 MG TAB PO SCH (06:01)
[2018-12-25 07:19] VITALS: TEMP 97.8
[2018-12-25] MEDS: Apixaban 2.5 MG TAB PO SCH (08:42)
[2018-12-25] MEDS: levETIRAcetam 500 mg/5 ml Oral Solution PO SCH (08:42)
[2018-12-25] MEDS: Aspirin 81 mg Enteric Coated Tablet PO SCH (08:43)
[2018-12-25] MEDS: Lisinopril 20 MG TAB PO SCH (08:43)
[2018-12-25] MEDS: Atenolol 25 MG TAB PO SCH (08:43)
[2018-12-25] MEDS: Famotidine 20 MG TAB PO SCH (08:43)
[2018-12-25] MEDS: Multivitamin W/ Minerals 1 TAB PO SCH (08:43)
[2018-12-25] MEDS: Saccharomyces boulardii 250 MG CAP PO SCH (08:43)
[2018-12-25 08:44] VITALS: BP 146/67
[2018-12-25] MEDS: Lidocaine Patch Removal 1 EACH TOP SCH (12:14)
--- NOTE | 2018-12-25 13:46 | PRG ---
DATE OF SERVICE: 12/21/2018 SUBJECTIVE: Mr. Salazar is doing the same. No change. He is completing his antibiotics tomorrow. Plan is to transfer him next Monday, so that there is no miscommunication during the long weekend in the transition. OBJECTIVE: VITAL SIGNS: Temperature 99.2, pulse 82, respirations 18, oxygen saturation 99% on room air, and blood pressure 156/79. CARDIOVASCULAR SYSTEM: S1 and S2 plus. RESPIRATORY SYSTEM: Normal vesicular breath sounds. ABDOMEN: Soft and nontender. Bowel sounds heard in all quadrants. EXTREMITIES: Without cyanosis or clubbing. CENTRAL NERVOUS SYSTEM: Still with persistent cognitive deficits. IMPRESSION: 1. Methicillin-resistant Staphylococcus aureus infection to right hip. He is going to complete his antibiotics tomorrow. Inflammatory markers are almost within normal limits. 2. Coronary artery disease. 3. Hypertension. 4. Atrial fibrillation. 5. Postherpetic neuralgia. 6. Seizure disorder. 7. Cognitive deficits. 8. Dysphagia. PLAN: 1. Continue supportive care. 2. Nutritional support with aspiration precautions. 3. DVT prophylaxis-he is on Eliquis. 4. Decubitus precautions. 5. Stress ulcer prophylaxis. 6. Discharge planning. 7. Discussed with the patient and spouse and nursing in detail. All questions answered. Job ID: [id number]
--- NOTE | 2018-12-25 16:45 | DIS ---
DATE OF ADMISSION: 10/07/2018 DATE OF DISCHARGE: 12/25/2018 PRINCIPAL DIAGNOSIS: Methicillin-resistant Staphylococcus aureus infection to right hip, requiring removal and replacement of hardware. SECONDARY DIAGNOSES: 1. Coronary artery disease. 2. Hypertension. 3. Atrial fibrillation. 4. Postherpetic neuralgia. 5. Seizure disorder. 6. Questionable history of cerebrovascular accident with right hemiparesis, improving. 7. History of right hip fracture, status post fall, requiring hemiarthroplasty with subsequent infection requiring removal and replacement of hardware. 8. Dysphagia. 9. Persistent cognitive deficits. 10. DNR status. 11. Family and the patient does not want any artificial means of feeding including PEG tube. COMPLICATIONS: None. ADVERSE REACTIONS: None. PROCEDURES: None. CONSULTATIONS: Physical Therapy, Occupational Therapy, and Speech Therapy. HOSPITAL COURSE: The patient was admitted as a transfer from inpatient rehabilitation in the [facility] for continued antibiotic treatment of his MRSA infection of the hip and physical therapy. He seemed to do well initially, but then had episodes of confusion and agitation, which was initially felt to be due to his pain medications and his gabapentin, which where slowly weaned off. He was started on Lidoderm patch instead for the postherpetic neuralgia. He also was noticed to have hyperesthesia and complained of pain with even touching or minimal movement and so did not make any progress with therapy and was discharged from therapy. Monitored his inflammatory markers, and his antibiotics were changed to oral after two weeks of IV antibiotics, but then we noticed his inflammatory markers increasing, so he was switched back to IV antibiotics for a total duration of 6 weeks. His inflammatory markers are actually almost close to being normal, but we have not noticed any clinical improvement either with his pain, his hyperesthesia, or his cognitive function. He also was noted to be pocketing his pills, and speech therapy evaluated the patient and recommended really the patient is unsafe for any p.o. intake, but the patient and family do not want any aggressive treatment including PEG tube and so he is on a pureed diet with nectar thick liquids with aspiration precautions. Family is aware that this is the safest diet possible, but it still is not going to prevent any aspiration, it just reduces the risk. He was felt to be not medically stable to go home for his spouse to take care of himself as he is pretty much a 2-person assist for everything and so she has made arrangements for him to go to [facility]. He has done with his antibiotics. His PICC line has been removed, and he is deemed to have reached maximum medical improvement and ready for transfer. On the day of discharge, the patient is sitting up in bed and eating lunch, he is being fed, pleasantly confused. Family is not in the room. PHYSICAL EXAMINATION: VITAL SIGNS: He is afebrile. Heart rate 69, respirations 16, oxygen saturation 98% on room air, and blood pressure 127/60. CARDIOVASCULAR SYSTEM: S1 and S2 plus. RESPIRATORY SYSTEM: Normal vesicular breath sounds. ABDOMEN: Soft and nontender. Bowel sounds heard in all quadrants. EXTREMITIES: Without cyanosis or clubbing. Possible early flexion contractures, minimal. CENTRAL NERVOUS SYSTEM: Awake and confused. LABORATORY VALUES: Last H and H were done yesterday, which are 12 and 37, and platelets 210. Creatinine is 0.71. IMPRESSION: 1. Methicillin-resistant Staphylococcus aureus infection of the right hip, requiring removal and replacement of hardware and has completed 6 weeks of IV antibiotics, and his inflammatory markers are almost in the normal range. It was last checked on 12/20 and his CRP is 0.51 and sedimentation rate was 42. 2. Coronary artery disease. 3. Hypertension. 4. Atrial fibrillation. 5. Seizure disorder. 6. Cognitive deficits. 7. Dysphagia. DISCHARGE MEDICATIONS: 1. Tylenol 650 q.6 p.r.n. 2. Norvasc 10 mg daily. 3. Eliquis 2.5 b.i.d. 4. Ecotrin 81 daily. 5. Tenormin 25 mg b.i.d. 6. Pepcid 40 mg daily. 7. Multivitamin one tablet daily. 8. Keppra oral solution 750 mg in the evening and 500 in the morning. 9. Lidoderm patch in the morning. 10. Zestril 20 b.i.d. 11. Zofran ODT 8 mg q.6 p.r.n. 12. MiraLAX 17 g in 8 ounces of water daily. DISCHARGE INSTRUCTIONS: 1. Continue pureed diet, heart healthy, with nectar thick liquids and aspiration precautions. 2. PT, OT, ST eval and treat. 3. Poor intermediate project manager prognosis. 4. and son aware of his condition. Total time spent on this discharge 40 minutes. Job ID: [id number]
--- NOTE | 2018-12-27 22:14 | PQF ---
[employer] Equipment Repairer Inspector Crystal Reports [facility] FÉLIX Penaloza MD [id number] 2 [facility] [id number] CLINICAL DOCUMENTATION CLARIFICATION FORM: POST DISCHARGE Addendum to original discharge summary date: ____ Late entry note date: __ Date: 12/28/2018 ATTN: FÉLIX GARCIA MD Please exercise your independent, professional judgment in responding to the clarification form. Clinical indicators are provided on the bottom of this form for your review Please check appropriate box(s): [ x ] Protein Calorie Malnutrition: [ x ] Mild [ ] Moderate [ ] Severe [ ] Other Malnutrition (please specify) __ [ ] Underweight without malnutrition [ ] Cachexia [ ] Other diagnosis [ ] Unable to determine In addition, please specify: Present on Admission (POA): [ x ] Yes [ ] No [ ] Unable to determine CLINICAL INDICATORS - SIGNS / SYMPTOMS / LABS [place] BMI of _19.5 Deconditioning - Documented in H&P on 10/07 by FÉLIX GARCIA MD Trace edema right Leg - Documented in H&P on 10/07 by FÉLIX GARCIA MD Residual weakness from CVA - Documented in H&P on 10/07 by FÉLIX GARCIA MD Albumin level 3.3 - Documented inLaboratory Malnutrition secondary to poor intake - Documented in Progress notes on 825 by Imelda Samuel MD Very thin - Documented in Progress notes on 825 by Imelda Samuel MD [employer] 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- Documented in DC on 12/25 by FÉLIX GARCIA MD status post removal and replacement of hardware due to MRSA infection - Documented in DC on 12/25 by FÉLIX GARCIA MD Dysphagia - Documented in DC on 12/25 by FÉLIX GARCIA MD TREATMENT: Nutritional Support - Documented in H&P on 10/07 by FÉLIX GARCIA MD continue supportive care - Documented in Progress notes on 825 by Imelda Samuel MD Moderate Malnutrition (in acute illness) Energy Intake: <75% of estimated energy requirement for > 7 days Weight Loss: 1-2%/1 week; 5%/ 1 month; 7.5%/3 months Other: mild body fat loss; mild muscle mass loss; mild fluid accumulation; Severe Malnutrition (in acute illness) Energy Intake: < 50% of estimated energy requirement for > 5 days Weight Loss: >1-2%/1 week; >5%/1 month; >7.5%/3 months Other: moderate body fat loss; moderate muscle mass loss; moderate- severe fluid accumulation; measurably reduced production foreman strength Moderate Malnutrition (in chronic illness) Energy Intake: <75% of estimated energy requirement for >1 month Weight Loss: 5%/1 month; 7.5%/3 months; 10%/6 months; 20%/1 year Other: mild body fat loss; mild muscle mass loss; mild fluid accumulation Severe Malnutrition (in chronic illness) Energy Intake: <75% of estimated energy requirement for >1 month Weight Loss: >5%/1 month; >7.5%/3 months; >10%/6 months; >20%/1 year Other: severe body fat loss; severe muscle mass loss; severe fluid accumulation ; measurably reduced production foreman strength (This form is maintained as a part of the permanent medical record) 2014 [email or web address] All Rights Reserved Karen [email or web address] [not provided] [email or web address]
== END 2018-12-25 16:20 | DRG 560 ==
LOC: NAV ACUTE 16:43
PROVIDERS: ADMIT Internal Medicine; ATTEND Internal Medicine
DX: Z47.89 Encounter for other orthopedic aftercare (principal); B02.29 Other postherpetic nervous system involvement; I69.351 Hemiplegia and hemiparesis following cerebral infarction affecting right dominant side; E46 Unspecified protein-calorie malnutrition; Z68.1 Body mass index [BMI] 19.9 or less, adult; E44.1 Mild protein-calorie malnutrition; Z66 Do not resuscitate; I10 Essential (primary) hypertension; I48.91 Unspecified atrial fibrillation; I25.10 Atherosclerotic heart disease of native coronary artery without angina pectoris; Z95.1 Presence of aortocoronary bypass graft; Z91.041 Radiographic dye allergy status; Z91.013 Allergy to seafood; R26.89 Other abnormalities of gait and mobility; E78.5 Hyperlipidemia, unspecified; G40.909 Epilepsy, unspecified, not intractable, without status epilepticus; R13.10 Dysphagia, unspecified; R41.89 Other symptoms and signs involving cognitive functions and awareness
CPT/HCPCS: 36415; 71045; 80048; 80053; 80202; 82565; 85014; 85018; 85025; 85049; 85652; 86140; 87040; 87070; 87086; 87205; J0360; J0692; J1650; J1953; J3370; J3480; J3490; J7042; J7050; Q0162; S0028